=== PATIENT | female | born 1945 | race Caucasian/White ===

== ENCOUNTER 2018-03-03 14:21 | Inpatient (IN) ==
[2018-03-03 19:07] LABS: Hematocrit 46.3 % (35.0-46.0); Hemoglobin 15.6 gm/dL (11.6-15.3); Mean Corpuscular HGB Conc 33.8 % (32.0-36.0); Mean Corpuscular Hemoglobin 30.6 pg (27.0-34.0); Mean Corpuscular Volume 90.5 fL (80.0-100.0); Platelet Count 254 th/mm3 (150-450); Red Blood Count 5.12 mil/mm3 (4.00-5.30)
[2018-03-03] MEDS ORDERED: Morphine Inj 4 MG/ML Vial IV.PUSH ONE (19:09)
--- NOTE | 2018-03-03 19:09 | ED ---
HPI General Chief complaint: Abdominal Pain Stated complaint: c/o rt upper quad abd pain with nausea x1 wk Time Seen by Provider: 03/03/18 19:18 History of Present Illness HPI narrative: patient is a 72 year old female presents to the ER for evaluation of Epigastric pain radiating down her RLQ and to her Right flank for the past week. No alleviating or exacerbating factors identified. She has had some associated nausea without vomiting. No CP no SOB. Patient has not had any abdominal surgeries, no previous symptoms before this. Patient also appeared jaundiced but hasn't noticed. Family arrives and confirms she is yellow. Symptoms intermittent, moderate, location and radiation as above. Related Data Home Medications Medication Instructions Recorded Confirmed metoprolol tartrate 25 mg PO BID 03/03/18 03/03/18 omeprazole 40 mg PO DAILY 03/03/18 03/03/18 Previous Rx's Medication Instructions Recorded aspirin 81 mg PO DAILY tab 03/14/18 lisinopril 10 mg PO DAILY #30 tab 03/14/18 amlodipine [Norvasc] 10 mg PO DAILY #30 tab 03/15/18 Allergies Allergy/AdvReac Type Severity Reaction Status Date / Time naproxen Allergy Severe Swelling Verified 03/03/18 14:40 of Lip/Tongue/Throat acetaminophen [From Lortab] Allergy Intermediate Nausea/Vomi Verified 03/03/18 14:40 ting hydrocodone [From Lortab] Allergy Intermediate Nausea/Vomi Verified 03/03/18 14: 40 ting meperidine Allergy Intermediate Palpitation Verified 03/03/18 14:40 s promethazine Allergy Intermediate Palpitation Verified 03/03/18 14:40 s Review of Systems ROS: all other systems reviewed are negative [facility] Social History Social History Substance History: No History of Abuse Second Hand Smoke Exposure: No Smoking Status: Never smoker How Often Do You Have a Drink Containing Alcohol: Never Recent Travel in [place] within the Last 8 Weeks: No Recent Out of Country Travel within the Last 8 Weeks: No Immunization History Tetanus Immunization: >5 Years Hx Influenza Vaccine This Season: Yes Exam Narrative Exam Narrative: GENERAL: WD/WN overweight, jaundiced. SKIN: Focused skin assessment warm/dry. HEAD: Atraumatic. Normocephalic. EYES: Pupils equal and round. Positive mild scleral icterus. No injection or drainage. ENT: No nasal bleeding or discharge. Mucous membranes pink and moist. NECK: Trachea midline. No JVD. CARDIOVASCULAR: Regular rate and rhythm. No murmur appreciated. RESPIRATORY: No accessory muscle use. Clear to auscultation. Breath sounds equal bilaterally. GASTROINTESTINAL: Abdomen soft, Moderately tender in the RUQ. [place] sign is negative. moderately distended and tympanic percussion. No rebound, no percussive tenderness. Hepatic and splenic margins not palpable 2/2 distension. MUSCULOSKELETAL: No obvious deformities. No clubbing. No cyanosis. No edema. NEUROLOGICAL: Awake and alert. No obvious cranial nerve deficits. Motor grossly within normal limits. Normal speech. PSYCHIATRIC: Appropriate mood and affect; insight and judgment normal. Course Reevaluation(s) Reevaluation #1: Accepted in transfer of care from Dr. Summers Time: 19:19 Consultations Consultation #1: call placed to service agent and desktop analyst and music therapist public [employer] system discussed with Dr Orozco -- requests transfer to [facility] consent for ercp Time: 21:17 Consultation #2: discussed with GI, Dr Vo--transfer to [facility] for ercp after cardiac clearance; service agent, Dr Arenas--admit to [facility] IM; music therapist public [employer] system- discussed with music therapist public school system, Dr Deng -- no heparinization at this time, however if increasing troponin then start heparinization --does recommend ECHO Initial Documented Vital Signs Temperature 97.7 F 03/03/18 14:34 Pulse Rate 70 03/03/18 14:34 Respiratory Rate 16 03/03/18 14:34 Blood Pressure 118/69 03/03/18 14:34 Pulse Oximetry 93 L 03/03/18 14:34 Last Documented Vital Signs Temperature 98.7 F 03/15/18 11:00 Pulse Rate 65 03/15/18 12:00 Respiratory Rate 18 03/15/18 11:00 Blood Pressure 117/78 03/15/18 11:00 Pulse Oximetry 96 03/15/18 11:00 Critical Care Time Critical Care Time: Yes Total Critical Care Time: 30 Attestation: Aggregate critical care time was 30 minutes. Time to perform other separately billable procedures was not included in the critical care time. My time did not include minutes spent treating any other patients simultaneously or on activities that did not directly contribute to the patient's treatment. The services I provided to this patient were to treat and/or prevent clinically significant deterioration that could result in: septic shock, cardiac arrest, , I provided critical care services requiring my management, as noted below: Chart data review, documentation time, medication orders and management, vital sign assessments/reviewing monitor data, ordering and reviewing lab tests, ordering and interpreting/reviewing x-rays and diagnostic studies, care of the patient and discussion of the patient with the admitting physicians. Sign Out Sign Out Data: Patient Sign Out occurred on 03/03/18 at 19:18. Patient's care was discussed, and care was transferred from Caden Summers MD to Daksha Landrum MD. Sign Out Comment: D/W Dr. Landrum F/U labs and CT as discussed. Last updated by Caden Summers MD at 03/03/18 19:12 Medical Decision Making MDM Narrative Medical decision making narrative: patient roomed in the ER. Appears jaundiced , has some right upper quadrant tenderness. No true murphys. Basic labs ordered as well as CT and dose of morphine. Discussed with Dr. Landrum at 1900 shift change to follow up workup and disposition appropriately. Patient has received morphine sulfate and Zofran pain has patient does have reproducible tenderness to the right upper quadrant otherwise abdomen is nontender white count is elevated at 13,000 differential pending EKG is sinus rhythm no acute ST elevation or poor with progression anteroseptally possible age-indeterminate anterior infarct labs resulted and patient is identified to have leukocytosis 13,500 with abnormal chemistry and troponin I of 2.18. LFTs remarkable for total bili of 6.2 AST 313 ALT 442 lipase is 18,000 749 these values are concerning for gallstone pancreatitis. Troponin I concerning for injury EKG shows no acute ST elevation or acute injury pattern although does have poor R-wave progression anteroseptally possible anterior myocardial infarction age-indeterminate; patient does have history of hypertension and dyslipidemia is prescribed metoprolol. Patient denies any chest pain shortness of breath sweats referred neck jaw mid scapular back pain or upper extremity pain. Patient however had noted similar symptoms approximately a week ago and at that time thought she was having a "heart attack " severe epigastric pain pressure with diaphoresis --not having these symptoms now. Angioedema allergic reaction to NSAIDs will defer aspirin at this time and keep patient n.p.o. @ 8:25 PM pain 2-3/10 RUQ no chest or epigastric pain; no nausea,dyspnea, referred pain and no vomiting or diaphoresis; CT pending; automated differential left shift with 13% bands P.m. lactic acid is mildly elevated at 2.1 CT abdomen pelvis is resulted per reading radiologist no gallstones are identified however gallbladder is distended the common bile duct is dilated down to the ampulla prominence of the intra-hepatic biliary ducts and pancreatic duct concerning for possibility of obstruction at the level ampulla recommendation is for ERCP concerning for nonvisualized stone choledocholithiasis induced pancreatitis however patient also identified to have recent complaint of chest pain with diaphoresis and nausea EKG shows no acute ST elevation injury pattern but does show poor R-wave progression anteroseptally and troponin I is elevated at 2.18 with CK 135 however MB percent is elevated at 6.4% concerning for non-ST elevation MT/ACS discussed with GI, Dr Vo--transfer to [facility] for ercp after cardiac clearance; service agent, Dr Arenas--admit to [facility] IMC; music therapist public school system- discussed with music therapist public school system, Dr Deng -- no heparinization at this time, however if increasing troponin then start heparinization --does recommend ECHO. Dr Arenas informed of troponins, cardiology recommendations, and patient time of transfer from ED Medical Screen Exam Complete: Yes Emergency Medical Condition: Yes Differential Diagnosis Differential Diagnosis: Cholecystitis, Aorta pathology unlikely, gallstone ileus , pancreatitis. Medical Records Medical records reviewed: Yes I reviewed the patient's medical records. Lab Data Lab results reviewed: Yes I reviewed the patient's lab results. Result diagrams: 03/13/18 04:39 03/15/18 05:37 Lab Results 03/03/18 03/03/18 03/03/18 Range/Units 19:00 19:00 20:14 CBC w Diff Slide review pending WBC 13.0 H (4.0-11.0) th/mm3 RBC 5.12 (4.00-5.30) mil/mm3 Hgb 15.6 H (11.6-15.3) gm/dL Hct 46.3 H (35.0-46.0) % MCV 90.5 (80.0-100.0) fL MCH 30.6 (27.0-34.0) pg MCHC 33.8 (32.0-36.0) % RDW 14.0 (11.6-17.2) % Plt Count 254 (150-450) th/mm3 MPV 8.0 (7.0-11.0) fL Prelim Diff (Auto) Neut % (Auto) (16.0-70.0) % Lymph % (Auto) (9.0-44.0) % [place] % (Auto) (0.0-8.0) % Eos % (Auto) (0.0-4.0) % Baso % (Auto) (0.0-2.0) % Neut # (Auto) (1.8-7.7) th/mm3 Lymph # (Auto) (1.0-4.8) th/mm3 [place] # (Auto) (0.0-0.9) th/mm3 Eos # (Auto) (0.0-0.4) th/mm3 Baso # (Auto) (0.0-0.2) th/mm3 WBC Differential Manual diff final Seg Neuts % (Manual) 79 H (16-70) % Band Neuts % (Manual) 13 H (0-6) % Lymphocytes % (Manual) 6 L (9-44) % Monocytes % (Manual) 1 (0-8) % Eosinophils % (Manual) 1 (0-4) % Metamyelocytes % (Man) (0-1) % Abs Neuts (Manual) 12.0 H (1.8-7.7) th/mm3 Differential Comment . Platelet Estimate Normal (Normal) Platelet Morphology Normal (Normal) RBC Morphology Normal (Normal) Hematology Comments Sodium 134 L (136-145) meq/L Potassium 3.8 (3.5-5.1) meq/L Chloride 98 (98-107) meq/L Carbon Dioxide 23.9 (21.0-32.0) meq/L Anion Gap 12 (5-15) meq/L BUN 30 H (7-18) mg/dL Creatinine 0.93 (0.50-1.00) mg/dL Estimated GFR 59 L (>89) mL/min POC Glucose (68-110) mg/dl Random Glucose 162 H (74-106) mg/dL Lactic Acid 2.1 H (0.4-2.0) mmol/L Calcium 10.0 (8.5-10.1) mg/dL Phosphorus (2.5-4.9) mg/dL Magnesium (1.5-2.5) mg/dL Total Bilirubin 6.2 H (0.2-1.0) mg/dL Direct Bilirubin (0.0-0.2) mg/dL Indirect Bilirubin (0.0-0.8) mg/dL AST 315 H (15-37) U/L ALT 442 H (10-53) U/L Alkaline Phosphatase 288 H (45-117) U/L Lactate Dehydrogenase (84-246) U/L Total Creatine Kinase 135 (26-192) U/L CK-MB (CK-2) 8.7 H (0.5-3.6) ng/mL Troponin I 2.18 H* (0.02-0.05) ng/mL Total Protein 8.7 H (6.4-8.2) g/dL Albumin 3.3 L (3.4-5.0) g/dL Triglycerides (42-150) mg/dL Lipase 35935 H (73-393) U/L Urine Color (Yellw/Straw) Urine Clarity (Clear) Urine pH (5.0-8.5) Ur Specific Damar (1.002-1.035) Urine Protein (Neg-Trace) mg/dL Urine Glucose (UA) (Negative) mg/dL Urine Ketones (Negative) mg/dL Urine Occult Blood (Negative) Urine Nitrate (Negative) Urine Bilirubin (Negative) Urine Ictotest (Negative) Urine Urobilinogen (Less than 2) mg/dL Ur Leukocyte Esterase (Negative) Urine RBC (0-3) /hpf Urine WBC (0-5) /hpf Ur Squamous Epith Cells (0-5) /hpf Fine Granular Casts (None) /lpf Coarse Granular Casts (None) /lpf Micro UA Comment Urine Culture Comments Nasal Screen MRSA (PCR) (Negative) 03/03/18 03/03/18 03/04/18 Range/Units 21:40 22:25 03:24 CBC w Diff WBC (4.0-11.0) th/mm3 RBC (4.00-5.30) mil/mm3 Hgb (11.6-15.3) gm/dL Hct (35.0-46.0) % MCV (80.0-100.0) fL MCH (27.0-34.0) pg MCHC (32.0-36.0) % RDW (11.6-17.2) % Plt Count (150-450) th/mm3 MPV (7.0-11.0) fL Prelim Diff (Auto) Neut % (Auto) (16.0-70.0) % Lymph % (Auto) (9.0-44.0) % [place] % (Auto) (0.0-8.0) % Eos % (Auto) (0.0-4.0) % Baso % (Auto) (0.0-2.0) % Neut # (Auto) (1.8-7.7) th/mm3 Lymph # (Auto) (1.0-4.8) th/mm3 [place] # (Auto) (0.0-0.9) th/mm3 Eos # (Auto) (0.0-0.4) th/mm3 Baso # (Auto) (0.0-0.2) th/mm3 WBC Differential Seg Neuts % (Manual) (16-70) % Band Neuts % (Manual) (0-6) % Lymphocytes % (Manual) (9-44) % Monocytes % (Manual) (0-8) % Eosinophils % (Manual) (0-4) % Metamyelocytes % (Man) (0-1) % Abs Neuts (Manual) (1.8-7.7) th/mm3 Differential Comment Platelet Estimate (Normal) Platelet Morphology (Normal) RBC Morphology (Normal) Hematology Comments Sodium (136-145) meq/L Potassium (3.5-5.1) meq/L Chloride (98-107) meq/L Carbon Dioxide (21.0-32.0) meq/L Anion Gap (5-15) meq/L BUN (7-18) mg/dL Creatinine (0.50-1.00) mg/dL Estimated GFR (>89) mL/min POC Glucose (68-110) mg/dl Random Glucose (74-106) mg/dL Lactic Acid (0.4-2.0) mmol/L Calcium (8.5-10.1) mg/dL Phosphorus (2.5-4.9) mg/dL Magnesium (1.5-2.5) mg/dL Total Bilirubin (0.2-1.0) mg/dL Direct Bilirubin (0.0-0.2) mg/dL Indirect Bilirubin (0.0-0.8) mg/dL AST (15-37) U/L ALT (10-53) U/L Alkaline Phosphatase (45-117) U/L Lactate Dehydrogenase (84-246) U/L Total Creatine Kinase (26-192) U/L CK-MB (CK-2) (0.5-3.6) ng/mL Troponin I 2.26 H* (0.02-0.05) ng/mL Total Protein (6.4-8.2) g/dL Albumin (3.4-5.0) g/dL Triglycerides (42-150) mg/dL Lipase (73-393) U/L Urine Color Ally H (Yellw/Straw) Urine Clarity Clear (Clear) Urine pH 5.0 (5.0-8.5) Ur Specific Damar 1.020 (1.002-1.035) Urine Protein 100 H (Neg-Trace) mg/dL Urine Glucose (UA) Negative (Negative) mg/dL Urine Ketones 15 H (Negative) mg/dL Urine Occult Blood Trace (Negative) Urine Nitrate Negative (Negative) Urine Bilirubin Moderate H (Negative) Urine Ictotest Positive H (Negative) Urine Urobilinogen 0.2 (Less than 2) mg/dL Ur Leukocyte Esterase Negative (Negative) Urine RBC 0-3 (0-3) /hpf Urine WBC 6-8 H (0-5) /hpf Ur Squamous Epith Cells 6-10 H (0-5) /hpf Fine Granular Casts 1-3 H (None) /lpf Coarse Granular Casts 1-3 H (None) /lpf Micro UA Comment Culture not ind Urine Culture Comments Culture not ind Nasal Screen MRSA (PCR) Not detected (Negative) 03/04/18 03/04/18 03/04/18 Range/Units 05:26 11:12 13:04 CBC w Diff WBC 7.5 (4.0-11.0) th/mm3 RBC 4.52 (4.00-5.30) mil/mm3 Hgb 13.9 (11.6-15.3) gm/dL Hct 41.2 (35.0-46.0) % MCV 91.2 (80.0-100.0) fL MCH 30.8 (27.0-34.0) pg MCHC 33.8 (32.0-36.0) % RDW 14.7 (11.6-17.2) % Plt Count 194 (150-450) th/mm3 MPV 7.9 (7.0-11.0) fL Prelim Diff (Auto) Neut % (Auto) 78.6 H (16.0-70.0) % Lymph % (Auto) 11.7 (9.0-44.0) % [place] % (Auto) 8.9 H (0.0-8.0) % Eos % (Auto) 0.6 (0.0-4.0) % Baso % (Auto) 0.2 (0.0-2.0) % Neut # (Auto) 5.9 (1.8-7.7) th/mm3 Lymph # (Auto) 0.9 L (1.0-4.8) th/mm3 [place] # (Auto) 0.7 (0.0-0.9) th/mm3 Eos # (Auto) 0.0 (0.0-0.4) th/mm3 Baso # (Auto) 0.0 (0.0-0.2) th/mm3 WBC Differential . Seg Neuts % (Manual) (16-70) % Band Neuts % (Manual) (0-6) % Lymphocytes % (Manual) (9-44) % Monocytes % (Manual) (0-8) % Eosinophils % (Manual) (0-4) % Metamyelocytes % (Man) (0-1) % Abs Neuts (Manual) (1.8-7.7) th/mm3 Differential Comment Auto diff final Platelet Estimate (Normal) Platelet Morphology (Normal) RBC Morphology (Normal) Hematology Comments Sodium 133 L (136-145) meq/L Potassium 4.2 (3.5-5.1) meq/L Chloride 103 (98-107) meq/L Carbon Dioxide 22.3 (21.0-32.0) meq/L Anion Gap 8 (5-15) meq/L BUN 25 H (7-18) mg/dL Creatinine 0.77 (0.50-1.00) mg/dL Estimated GFR 73 L (>89) mL/min POC Glucose (68-110) mg/dl Random Glucose 128 H (74-106) mg/dL Lactic Acid 0.4 (0.4-2.0) mmol/L Calcium 9.1 D (8.5-10.1) mg/dL Phosphorus (2.5-4.9) mg/dL Magnesium 2.4 (1.5-2.5) mg/dL Total Bilirubin 5.9 H (0.2-1.0) mg/dL Direct Bilirubin (0.0-0.2) mg/dL Indirect Bilirubin (0.0-0.8) mg/dL AST 277 H (15-37) U/L ALT 373 H (10-53) U/L Alkaline Phosphatase 263 H (45-117) U/L Lactate Dehydrogenase 295 H (84-246) U/L Total Creatine Kinase (26-192) U/L CK-MB (CK-2) (0.5-3.6) ng/mL Troponin I 1.43 H* D (0.02-0.05) ng/mL Total Protein 7.3 D (6.4-8.2) g/dL Albumin 2.6 L D (3.4-5.0) g/dL Triglycerides (42-150) mg/dL Lipase 9046 H (73-393) U/L Urine Color (Yellw/Straw) Urine Clarity (Clear) Urine pH (5.0-8.5) Ur Specific [place] (1.002-1.035) Urine Protein (Neg-Trace) mg/dL Urine Glucose (UA) (Negative) mg/dL Urine Ketones (Negative) mg/dL Urine Occult Blood (Negative) Urine Nitrate (Negative) Urine Bilirubin (Negative) Urine Ictotest (Negative) Urine Urobilinogen (Less than 2) mg/dL Ur Leukocyte Esterase (Negative) Urine RBC (0-3) /hpf Urine WBC (0-5) /hpf Ur Squamous Epith Cells (0-5) /hpf Fine Granular Casts (None) /lpf Coarse Granular Casts (None) /lpf Micro UA Comment Urine Culture Comments Nasal Screen MRSA (PCR) (Negative) 03/04/18 03/05/18 03/05/18 Range/Units 22:32 05:20 05:30 CBC w Diff WBC 7.5 (4.0-11.0) th/mm3 RBC 4.23 (4.00-5.30) mil/mm3 Hgb 12.9 (11.6-15.3) gm/dL Hct 38.4 (35.0-46.0) % MCV 90.7 (80.0-100.0) fL MCH 30.5 (27.0-34.0) pg MCHC 33.6 (32.0-36.0) % RDW 14.4 (11.6-17.2) % Plt Count 180 (150-450) th/mm3 MPV 8.1 (7.0-11.0) fL Prelim Diff (Auto) Neut % (Auto) 77.0 H (16.0-70.0) % Lymph % (Auto) 13.0 (9.0-44.0) % [place] % (Auto) 8.0 (0.0-8.0) % Eos % (Auto) 1.5 (0.0-4.0) % Baso % (Auto) 0.5 (0.0-2.0) % Neut # (Auto) 5.8 (1.8-7.7) th/mm3 Lymph # (Auto) 1.0 (1.0-4.8) th/mm3 [place] # (Auto) 0.6 (0.0-0.9) th/mm3 Eos # (Auto) 0.1 (0.0-0.4) th/mm3 Baso # (Auto) 0.0 (0.0-0.2) th/mm3 WBC Differential . Seg Neuts % (Manual) (16-70) % Band Neuts % (Manual) (0-6) % Lymphocytes % (Manual) (9-44) % Monocytes % (Manual) (0-8) % Eosinophils % (Manual) (0-4) % Metamyelocytes % (Man) (0-1) % Abs Neuts (Manual) (1.8-7.7) th/mm3 Differential Comment Auto diff final Platelet Estimate (Normal) Platelet Morphology (Normal) RBC Morphology (Normal) Hematology Comments Sodium 139 (136-145) meq/L Potassium 3.6 (3.5-5.1) meq/L Chloride 105 (98-107) meq/L Carbon Dioxide 23.8 (21.0-32.0) meq/L Anion Gap 10 (5-15) meq/L BUN 17 (7-18) mg/dL Creatinine 0.64 (0.50-1.00) mg/dL Estimated GFR (>89) mL/min POC Glucose (68-110) mg/dl Random Glucose 145 H (74-106) mg/dL Lactic Acid (0.4-2.0) mmol/L Calcium 8.5 (8.5-10.1) mg/dL Phosphorus 2.5 2.4 L (2.5-4.9) mg/dL Magnesium 2.2 (1.5-2.5) mg/dL Total Bilirubin 6.4 H (0.2-1.0) mg/dL Direct Bilirubin (0.0-0.2) mg/dL Indirect Bilirubin (0.0-0.8) mg/dL AST 234 H (15-37) U/L ALT 313 H (10-53) U/L Alkaline Phosphatase 283 H (45-117) U/L Lactate Dehydrogenase (84-246) U/L Total Creatine Kinase (26-192) U/L CK-MB (CK-2) (0.5-3.6) ng/mL Troponin I (0.02-0.05) ng/mL Total Protein 7.0 (6.4-8.2) g/dL Albumin 2.4 L (3.4-5.0) g/dL Triglycerides 153 H (42-150) mg/dL Lipase 5071 H (73-393) U/L Urine Color (Yellw/Straw) Urine Clarity (Clear) Urine pH (5.0-8.5) Ur Specific Damar (1.002-1.035) Urine Protein (Neg-Trace) mg/dL Urine Glucose (UA) (Negative) mg/dL Urine Ketones (Negative) mg/dL Urine Occult Blood (Negative) Urine Nitrate (Negative) Urine Bilirubin (Negative) Urine Ictotest (Negative) Urine Urobilinogen (Less than 2) mg/dL Ur Leukocyte Esterase (Negative) Urine RBC (0-3) /hpf Urine WBC (0-5) /hpf Ur Squamous Epith Cells (0-5) /hpf Fine Granular Casts (None) /lpf Coarse Granular Casts (None) /lpf Micro UA Comment Urine Culture Comments Nasal Screen MRSA (PCR) (Negative) 03/05/18 03/05/18 03/06/18 Range/Units 12:58 20:33 04:04 CBC w Diff WBC 9.6 (4.0-11.0) th/mm3 RBC 3.77 L (4.00-5.30) mil/mm3 Hgb 11.6 (11.6-15.3) gm/dL Hct 34.3 L (35.0-46.0) % MCV 90.8 (80.0-100.0) fL MCH 30.7 (27.0-34.0) pg MCHC 33.8 (32.0-36.0) % RDW 14.8 (11.6-17.2) % Plt Count 192 (150-450) th/mm3 MPV 8.1 (7.0-11.0) fL Prelim Diff (Auto) Neut % (Auto) 89.5 H (16.0-70.0) % Lymph % (Auto) 6.4 L (9.0-44.0) % [place] % (Auto) 3.9 (0.0-8.0) % Eos % (Auto) 0.0 (0.0-4.0) % Baso % (Auto) 0.2 (0.0-2.0) % Neut # (Auto) 8.6 H (1.8-7.7) th/mm3 Lymph # (Auto) 0.6 L (1.0-4.8) th/mm3 [place] # (Auto) 0.4 (0.0-0.9) th/mm3 Eos # (Auto) 0.0 (0.0-0.4) th/mm3 Baso # (Auto) 0.0 (0.0-0.2) th/mm3 WBC Differential . Seg Neuts % (Manual) (16-70) % Band Neuts % (Manual) (0-6) % Lymphocytes % (Manual) (9-44) % Monocytes % (Manual) (0-8) % Eosinophils % (Manual) (0-4) % Metamyelocytes % (Man) (0-1) % Abs Neuts (Manual) (1.8-7.7) th/mm3 Differential Comment Auto diff final Platelet Estimate (Normal) Platelet Morphology (Normal) RBC Morphology (Normal) Hematology Comments Sodium (136-145) meq/L Potassium (3.5-5.1) meq/L Chloride (98-107) meq/L Carbon Dioxide (21.0-32.0) meq/L Anion Gap (5-15) meq/L BUN (7-18) mg/dL Creatinine (0.50-1.00) mg/dL Estimated GFR (>89) mL/min POC Glucose 104 123 H (68-110) mg/dl Random Glucose (74-106) mg/dL Lactic Acid (0.4-2.0) mmol/L Calcium (8.5-10.1) mg/dL Phosphorus (2.5-4.9) mg/dL Magnesium (1.5-2.5) mg/dL Total Bilirubin (0.2-1.0) mg/dL Direct Bilirubin (0.0-0.2) mg/dL Indirect Bilirubin (0.0-0.8) mg/dL AST (15-37) U/L ALT (10-53) U/L Alkaline Phosphatase (45-117) U/L Lactate Dehydrogenase (84-246) U/L Total Creatine Kinase (26-192) U/L CK-MB (CK-2) (0.5-3.6) ng/mL Troponin I (0.02-0.05) ng/mL Total Protein (6.4-8.2) g/dL Albumin (3.4-5.0) g/dL Triglycerides (42-150) mg/dL Lipase (73-393) U/L Urine Color (Yellw/Straw) Urine Clarity (Clear) Urine pH (5.0-8.5) Ur Specific Damar (1.002-1.035) Urine Protein (Neg-Trace) mg/dL Urine Glucose (UA) (Negative) mg/dL Urine Ketones (Negative) mg/dL Urine Occult Blood (Negative) Urine Nitrate (Negative) Urine Bilirubin (Negative) Urine Ictotest (Negative) Urine Urobilinogen (Less than 2) mg/dL Ur Leukocyte Esterase (Negative) Urine RBC (0-3) /hpf Urine WBC (0-5) /hpf Ur Squamous Epith Cells (0-5) /hpf Fine Granular Casts (None) /lpf Coarse Granular Casts (None) /lpf Micro UA Comment Urine Culture Comments Nasal Screen MRSA (PCR) (Negative) 03/06/18 03/07/18 03/07/18 Range/Units 04:04 03:49 03:49 CBC w Diff WBC 9.9 (4.0-11.0) th/mm3 RBC 3.69 L (4.00-5.30) mil/mm3 Hgb 11.5 L (11.6-15.3) gm/dL Hct 33.5 L (35.0-46.0) % MCV 90.8 (80.0-100.0) fL MCH 31.2 (27.0-34.0) pg MCHC 34.3 (32.0-36.0) % RDW 14.5 (11.6-17.2) % Plt Count 226 (150-450) th/mm3 MPV 8.2 (7.0-11.0) fL Prelim Diff (Auto) Slide review pending Neut % (Auto) 70.9 H (16.0-70.0) % Lymph % (Auto) 17.4 (9.0-44.0) % [place] % (Auto) 9.2 H (0.0-8.0) % Eos % (Auto) 2.2 (0.0-4.0) % Baso % (Auto) 0.3 (0.0-2.0) % Neut # (Auto) 7.0 (1.8-7.7) th/mm3 Lymph # (Auto) 1.7 (1.0-4.8) th/mm3 [place] # (Auto) 0.9 (0.0-0.9) th/mm3 Eos # (Auto) 0.2 (0.0-0.4) th/mm3 Baso # (Auto) 0.0 (0.0-0.2) th/mm3 WBC Differential Manual diff final Seg Neuts % (Manual) 68 (16-70) % Band Neuts % (Manual) (0-6) % Lymphocytes % (Manual) 18 (9-44) % Monocytes % (Manual) 12 H (0-8) % Eosinophils % (Manual) 1 (0-4) % Metamyelocytes % (Man) 1 (0-1) % Abs Neuts (Manual) 6.8 (1.8-7.7) th/mm3 Differential Comment . Platelet Estimate Normal (Normal) Platelet Morphology Normal (Normal) RBC Morphology Normal (Normal) Hematology Comments Sodium 140 141 (136-145) meq/L Potassium 3.5 2.8 L* (3.5-5.1) meq/L Chloride 105 103 (98-107) meq/L Carbon Dioxide 26.0 28.0 (21.0-32.0) meq/L Anion Gap 9 10 (5-15) meq/L BUN 12 9 (7-18) mg/dL Creatinine 0.55 0.56 (0.50-1.00) mg/dL Estimated GFR Greater than 89 Greater than 89 (>89) mL/min POC Glucose (68-110) mg/dl Random Glucose 147 H 113 H (74-106) mg/dL Lactic Acid (0.4-2.0) mmol/L Calcium 8.1 L 8.0 L (8.5-10.1) mg/dL Phosphorus 2.1 L 2.0 L (2.5-4.9) mg/dL Magnesium 2.1 2.1 (1.5-2.5) mg/dL Total Bilirubin 1.8 H 1.1 H (0.2-1.0) mg/dL Direct Bilirubin (0.0-0.2) mg/dL Indirect Bilirubin (0.0-0.8) mg/dL AST 113 H 94 H (15-37) U/L ALT 224 H 194 H (10-53) U/L Alkaline Phosphatase 250 H 211 H (45-117) U/L Lactate Dehydrogenase (84-246) U/L Total Creatine Kinase (26-192) U/L CK-MB (CK-2) (0.5-3.6) ng/mL Troponin I (0.02-0.05) ng/mL Total Protein 6.9 6.7 (6.4-8.2) g/dL Albumin 2.3 L 2.3 L (3.4-5.0) g/dL Triglycerides (42-150) mg/dL Lipase 466 H 719 H (73-393) U/L Urine Color (Yellw/Straw) Urine Clarity (Clear) Urine pH (5.0-8.5) Ur Specific Damar (1.002-1.035) Urine Protein (Neg-Trace) mg/dL Urine Glucose (UA) (Negative) mg/dL Urine Ketones (Negative) mg/dL Urine Occult Blood (Negative) Urine Nitrate (Negative) Urine Bilirubin (Negative) Urine Ictotest (Negative) Urine Urobilinogen (Less than 2) mg/dL Ur Leukocyte Esterase (Negative) Urine RBC (0-3) /hpf Urine WBC (0-5) /hpf Ur Squamous Epith Cells (0-5) /hpf Fine Granular Casts (None) /lpf Coarse Granular Casts (None) /lpf Micro UA Comment Urine Culture Comments Nasal Screen MRSA (PCR) (Negative) 03/08/18 03/08/18 03/09/18 Range/Units 03:34 03:34 03:58 CBC w Diff WBC 10.6 11.3 H (4.0-11.0) th/mm3 RBC 3.69 L 3.72 L (4.00-5.30) mil/mm3 Hgb 11.3 L 11.2 L (11.6-15.3) gm/dL Hct 32.8 L 33.9 L (35.0-46.0) % MCV 89.0 91.1 (80.0-100.0) fL MCH 30.6 30.1 (27.0-34.0) pg MCHC 34.4 33.0 (32.0-36.0) % RDW 14.6 14.8 (11.6-17.2) % Plt Count 232 271 (150-450) th/mm3 MPV 7.5 7.9 (7.0-11.0) fL Prelim Diff (Auto) Neut % (Auto) 70.5 H 73.6 H (16.0-70.0) % Lymph % (Auto) 15.9 15.5 (9.0-44.0) % [place] % (Auto) 10.6 H 7.6 (0.0-8.0) % Eos % (Auto) 2.7 3.0 (0.0-4.0) % Baso % (Auto) 0.3 0.3 (0.0-2.0) % Neut # (Auto) 7.5 8.3 H (1.8-7.7) th/mm3 Lymph # (Auto) 1.7 1.7 (1.0-4.8) th/mm3 [place] # (Auto) 1.1 H 0.9 (0.0-0.9) th/mm3 Eos # (Auto) 0.3 0.3 (0.0-0.4) th/mm3 Baso # (Auto) 0.0 0.0 (0.0-0.2) th/mm3 WBC Differential . . Seg Neuts % (Manual) (16-70) % Band Neuts % (Manual) (0-6) % Lymphocytes % (Manual) (9-44) % Monocytes % (Manual) (0-8) % Eosinophils % (Manual) (0-4) % Metamyelocytes % (Man) (0-1) % Abs Neuts (Manual) (1.8-7.7) th/mm3 Differential Comment Auto diff final Auto diff final Platelet Estimate (Normal) Platelet Morphology (Normal) RBC Morphology (Normal) Hematology Comments Sodium 139 (136-145) meq/L Potassium 3.0 L (3.5-5.1) meq/L Chloride 101 (98-107) meq/L Carbon Dioxide 28.9 (21.0-32.0) meq/L Anion Gap 9 (5-15) meq/L BUN 6 L (7-18) mg/dL Creatinine 0.47 L (0.50-1.00) mg/dL Estimated GFR Greater than 89 (>89) mL/min POC Glucose (68-110) mg/dl Random Glucose 109 H (74-106) mg/dL Lactic Acid (0.4-2.0) mmol/L Calcium 8.0 L (8.5-10.1) mg/dL Phosphorus 3.1 D (2.5-4.9) mg/dL Magnesium 1.9 (1.5-2.5) mg/dL Total Bilirubin 1.2 H (0.2-1.0) mg/dL Direct Bilirubin 0.6 H (0.0-0.2) mg/dL Indirect Bilirubin 0.6 (0.0-0.8) mg/dL AST 89 H (15-37) U/L ALT 182 H (10-53) U/L Alkaline Phosphatase 187 H (45-117) U/L Lactate Dehydrogenase (84-246) U/L Total Creatine Kinase (26-192) U/L CK-MB (CK-2) (0.5-3.6) ng/mL Troponin I (0.02-0.05) ng/mL Total Protein 6.5 (6.4-8.2) g/dL Albumin 2.2 L (3.4-5.0) g/dL Triglycerides (42-150) mg/dL Lipase 443 H (73-393) U/L Urine Color (Yellw/Straw) Urine Clarity (Clear) Urine pH (5.0-8.5) Ur Specific Damar (1.002-1.035) Urine Protein (Neg-Trace) mg/dL Urine Glucose (UA) (Negative) mg/dL Urine Ketones (Negative) mg/dL Urine Occult Blood (Negative) Urine Nitrate (Negative) Urine Bilirubin (Negative) Urine Ictotest (Negative) Urine Urobilinogen (Less than 2) mg/dL Ur Leukocyte Esterase (Negative) Urine RBC (0-3) /hpf Urine WBC (0-5) /hpf Ur Squamous Epith Cells (0-5) /hpf Fine Granular Casts (None) /lpf Coarse Granular Casts (None) /lpf Micro UA Comment Urine Culture Comments Nasal Screen MRSA (PCR) (Negative) 03/09/18 03/10/18 03/11/18 Range/Units 03:58 05:00 05:53 CBC w Diff WBC 9.7 (4.0-11.0) th/mm3 RBC 4.06 (4.00-5.30) mil/mm3 Hgb 12.4 (11.6-15.3) gm/dL Hct 36.6 (35.0-46.0) % MCV 90.2 (80.0-100.0) fL MCH 30.6 (27.0-34.0) pg MCHC 33.9 (32.0-36.0) % RDW 14.7 (11.6-17.2) % Plt Count 438 D (150-450) th/mm3 MPV 7.4 (7.0-11.0) fL Prelim Diff (Auto) Neut % (Auto) 76.2 H (16.0-70.0) % Lymph % (Auto) 13.7 (9.0-44.0) % [place] % (Auto) 6.5 (0.0-8.0) % Eos % (Auto) 3.2 (0.0-4.0) % Baso % (Auto) 0.4 (0.0-2.0) % Neut # (Auto) 7.4 (1.8-7.7) th/mm3 Lymph # (Auto) 1.3 (1.0-4.8) th/mm3 [place] # (Auto) 0.6 (0.0-0.9) th/mm3 Eos # (Auto) 0.3 (0.0-0.4) th/mm3 Baso # (Auto) 0.0 (0.0-0.2) th/mm3 WBC Differential . Seg Neuts % (Manual) (16-70) % Band Neuts % (Manual) (0-6) % Lymphocytes % (Manual) (9-44) % Monocytes % (Manual) (0-8) % Eosinophils % (Manual) (0-4) % Metamyelocytes % (Man) (0-1) % Abs Neuts (Manual) (1.8-7.7) th/mm3 Differential Comment Auto diff final Platelet Estimate (Normal) Platelet Morphology (Normal) RBC Morphology (Normal) Hematology Comments Sodium 141 142 (136-145) meq/L Potassium 3.3 L 3.4 L (3.5-5.1) meq/L Chloride 103 104 (98-107) meq/L Carbon Dioxide 27.2 28.1 (21.0-32.0) meq/L Anion Gap 11 10 (5-15) meq/L BUN 8 7 (7-18) mg/dL Creatinine 0.62 0.56 (0.50-1.00) mg/dL Estimated GFR Greater than 89 Greater than 89 (>89) mL/min POC Glucose (68-110) mg/dl Random Glucose 116 H 115 H (74-106) mg/dL Lactic Acid (0.4-2.0) mmol/L Calcium 8.4 L 8.7 (8.5-10.1) mg/dL Phosphorus 4.0 (2.5-4.9) mg/dL Magnesium 2.1 (1.5-2.5) mg/dL Total Bilirubin 1.0 0.8 (0.2-1.0) mg/dL Direct Bilirubin (0.0-0.2) mg/dL Indirect Bilirubin (0.0-0.8) mg/dL AST 47 H 34 (15-37) U/L ALT 140 H 106 H (10-53) U/L Alkaline Phosphatase 180 H 185 H (45-117) U/L Lactate Dehydrogenase (84-246) U/L Total Creatine Kinase (26-192) U/L CK-MB (CK-2) (0.5-3.6) ng/mL Troponin I (0.02-0.05) ng/mL Total Protein 6.7 6.9 (6.4-8.2) g/dL Albumin 2.1 L 2.2 L (3.4-5.0) g/dL Triglycerides (42-150) mg/dL Lipase 688 H 979 H (73-393) U/L Urine Color (Yellw/Straw) Urine Clarity (Clear) Urine pH (5.0-8.5) Ur Specific Damar (1.002-1.035) Urine Protein (Neg-Trace) mg/dL Urine Glucose (UA) (Negative) mg/dL Urine Ketones (Negative) mg/dL Urine Occult Blood (Negative) Urine Nitrate (Negative) Urine Bilirubin (Negative) Urine Ictotest (Negative) Urine Urobilinogen (Less than 2) mg/dL Ur Leukocyte Esterase (Negative) Urine RBC (0-3) /hpf Urine WBC (0-5) /hpf Ur Squamous Epith Cells (0-5) /hpf Fine Granular Casts (None) /lpf Coarse Granular Casts (None) /lpf Micro UA Comment Urine Culture Comments Nasal Screen MRSA (PCR) (Negative) 03/11/18 03/12/18 03/12/18 Range/Units 05:53 04:20 04:20 CBC w Diff WBC 7.3 (4.0-11.0) th/mm3 RBC 4.09 (4.00-5.30) mil/mm3 Hgb 12.8 (11.6-15.3) gm/dL Hct 37.2 (35.0-46.0) % MCV 90.9 (80.0-100.0) fL MCH 31.3 (27.0-34.0) pg MCHC 34.4 (32.0-36.0) % RDW 14.3 (11.6-17.2) % Plt Count 433 (150-450) th/mm3 MPV 7.6 (7.0-11.0) fL Prelim Diff (Auto) Neut % (Auto) 64.3 (16.0-70.0) % Lymph % (Auto) 21.6 (9.0-44.0) % [place] % (Auto) 9.1 H (0.0-8.0) % Eos % (Auto) 4.3 H (0.0-4.0) % Baso % (Auto) 0.7 (0.0-2.0) % Neut # (Auto) 4.7 (1.8-7.7) th/mm3 Lymph # (Auto) 1.6 (1.0-4.8) th/mm3 [place] # (Auto) 0.7 (0.0-0.9) th/mm3 Eos # (Auto) 0.3 (0.0-0.4) th/mm3 Baso # (Auto) 0.1 (0.0-0.2) th/mm3 WBC Differential . Seg Neuts % (Manual) (16-70) % Band Neuts % (Manual) (0-6) % Lymphocytes % (Manual) (9-44) % Monocytes % (Manual) (0-8) % Eosinophils % (Manual) (0-4) % Metamyelocytes % (Man) (0-1) % Abs Neuts (Manual) (1.8-7.7) th/mm3 Differential Comment Auto diff final Platelet Estimate (Normal) Platelet Morphology (Normal) RBC Morphology (Normal) Hematology Comments Sodium 142 141 (136-145) meq/L Potassium 3.5 3.3 L (3.5-5.1) meq/L Chloride 103 104 (98-107) meq/L Carbon Dioxide 28.4 25.5 (21.0-32.0) meq/L Anion Gap 11 12 (5-15) meq/L BUN 7 7 (7-18) mg/dL Creatinine 0.60 0.59 (0.50-1.00) mg/dL Estimated GFR Greater than 89 Greater than 89 (>89) mL/min POC Glucose (68-110) mg/dl Random Glucose 110 H 121 H (74-106) mg/dL Lactic Acid (0.4-2.0) mmol/L Calcium 8.9 9.0 (8.5-10.1) mg/dL Phosphorus (2.5-4.9) mg/dL Magnesium 2.3 (1.5-2.5) mg/dL Total Bilirubin 0.9 1.0 (0.2-1.0) mg/dL Direct Bilirubin 0.3 H (0.0-0.2) mg/dL Indirect Bilirubin 0.7 (0.0-0.8) mg/dL AST 32 28 (15-37) U/L ALT 92 H 74 H (10-53) U/L Alkaline Phosphatase 196 H 184 H (45-117) U/L Lactate Dehydrogenase (84-246) U/L Total Creatine Kinase (26-192) U/L CK-MB (CK-2) (0.5-3.6) ng/mL Troponin I (0.02-0.05) ng/mL Total Protein 7.6 D 7.6 (6.4-8.2) g/dL Albumin 2.5 L 2.3 L (3.4-5.0) g/dL Triglycerides (42-150) mg/dL Lipase 948 H 1014 H (73-393) U/L Urine Color (Yellw/Straw) Urine Clarity (Clear) Urine pH (5.0-8.5) Ur Specific Damar (1.002-1.035) Urine Protein (Neg-Trace) mg/dL Urine Glucose (UA) (Negative) mg/dL Urine Ketones (Negative) mg/dL Urine Occult Blood (Negative) Urine Nitrate (Negative) Urine Bilirubin (Negative) Urine Ictotest (Negative) Urine Urobilinogen (Less than 2) mg/dL Ur Leukocyte Esterase (Negative) Urine RBC (0-3) /hpf Urine WBC (0-5) /hpf Ur Squamous Epith Cells (0-5) /hpf Fine Granular Casts (None) /lpf Coarse Granular Casts (None) /lpf Micro UA Comment Urine Culture Comments Nasal Screen MRSA (PCR) (Negative) 03/13/18 03/13/18 03/14/18 Range/Units 04:39 04:39 09:48 CBC w Diff WBC 5.8 (4.0-11.0) th/mm3 RBC 4.18 (4.00-5.30) mil/mm3 Hgb 12.6 (11.6-15.3) gm/dL Hct 37.2 (35.0-46.0) % MCV 89.0 (80.0-100.0) fL MCH 30.1 (27.0-34.0) pg MCHC 33.8 (32.0-36.0) % RDW 14.3 (11.6-17.2) % Plt Count 442 (150-450) th/mm3 MPV 7.6 (7.0-11.0) fL Prelim Diff (Auto) Neut % (Auto) 61.7 (16.0-70.0) % Lymph % (Auto) 20.8 (9.0-44.0) % [place] % (Auto) 12.0 H (0.0-8.0) % Eos % (Auto) 4.6 H (0.0-4.0) % Baso % (Auto) 0.9 (0.0-2.0) % Neut # (Auto) 3.6 (1.8-7.7) th/mm3 Lymph # (Auto) 1.2 (1.0-4.8) th/mm3 [place] # (Auto) 0.7 (0.0-0.9) th/mm3 Eos # (Auto) 0.3 (0.0-0.4) th/mm3 Baso # (Auto) 0.1 (0.0-0.2) th/mm3 WBC Differential . Seg Neuts % (Manual) (16-70) % Band Neuts % (Manual) (0-6) % Lymphocytes % (Manual) (9-44) % Monocytes % (Manual) (0-8) % Eosinophils % (Manual) (0-4) % Metamyelocytes % (Man) (0-1) % Abs Neuts (Manual) (1.8-7.7) th/mm3 Differential Comment Auto diff final Platelet Estimate (Normal) Platelet Morphology (Normal) RBC Morphology (Normal) Hematology Comments Sodium 142 (136-145) meq/L Potassium 4.1 D (3.5-5.1) meq/L Chloride 107 (98-107) meq/L Carbon Dioxide 25.4 (21.0-32.0) meq/L Anion Gap 10 (5-15) meq/L BUN 10 (7-18) mg/dL Creatinine 0.63 (0.50-1.00) mg/dL Estimated GFR Greater than 89 (>89) mL/min POC Glucose (68-110) mg/dl Random Glucose 126 H (74-106) mg/dL Lactic Acid (0.4-2.0) mmol/L Calcium 8.5 (8.5-10.1) mg/dL Phosphorus (2.5-4.9) mg/dL Magnesium (1.5-2.5) mg/dL Total Bilirubin 0.7 (0.2-1.0) mg/dL Direct Bilirubin 0.3 H (0.0-0.2) mg/dL Indirect Bilirubin 0.4 (0.0-0.8) mg/dL AST 25 (15-37) U/L ALT 55 H (10-53) U/L Alkaline Phosphatase 154 H (45-117) U/L Lactate Dehydrogenase (84-246) U/L Total Creatine Kinase (26-192) U/L CK-MB (CK-2) (0.5-3.6) ng/mL Troponin I (0.02-0.05) ng/mL Total Protein 6.9 D (6.4-8.2) g/dL Albumin 2.3 L (3.4-5.0) g/dL Triglycerides (42-150) mg/dL Lipase 993 H 1066 H (73-393) U/L Urine Color (Yellw/Straw) Urine Clarity (Clear) Urine pH (5.0-8.5) Ur Specific Damar (1.002-1.035) Urine Protein (Neg-Trace) mg/dL Urine Glucose (UA) (Negative) mg/dL Urine Ketones (Negative) mg/dL Urine Occult Blood (Negative) Urine Nitrate (Negative) Urine Bilirubin (Negative) Urine Ictotest (Negative) Urine Urobilinogen (Less than 2) mg/dL Ur Leukocyte Esterase (Negative) Urine RBC (0-3) /hpf Urine WBC (0-5) /hpf Ur Squamous Epith Cells (0-5) /hpf Fine Granular Casts (None) /lpf Coarse Granular Casts (None) /lpf Micro UA Comment Urine Culture Comments Nasal Screen MRSA (PCR) (Negative) 03/15/18 Range/Units 05:37 CBC w Diff WBC (4.0-11.0) th/mm3 RBC (4.00-5.30) mil/mm3 Hgb (11.6-15.3) gm/dL Hct (35.0-46.0) % MCV (80.0-100.0) fL MCH (27.0-34.0) pg MCHC (32.0-36.0) % RDW (11.6-17.2) % Plt Count (150-450) th/mm3 MPV (7.0-11.0) fL Prelim Diff (Auto) Neut % (Auto) (16.0-70.0) % Lymph % (Auto) (9.0-44.0) % [place] % (Auto) (0.0-8.0) % Eos % (Auto) (0.0-4.0) % Baso % (Auto) (0.0-2.0) % Neut # (Auto) (1.8-7.7) th/mm3 Lymph # (Auto) (1.0-4.8) th/mm3 [place] # (Auto) (0.0-0.9) th/mm3 Eos # (Auto) (0.0-0.4) th/mm3 Baso # (Auto) (0.0-0.2) th/mm3 WBC Differential Seg Neuts % (Manual) (16-70) % Band Neuts % (Manual) (0-6) % Lymphocytes % (Manual) (9-44) % Monocytes % (Manual) (0-8) % Eosinophils % (Manual) (0-4) % Metamyelocytes % (Man) (0-1) % Abs Neuts (Manual) (1.8-7.7) th/mm3 Differential Comment Platelet Estimate (Normal) Platelet Morphology (Normal) RBC Morphology (Normal) Hematology Comments Sodium 140 (136-145) meq/L Potassium 4.2 (3.5-5.1) meq/L Chloride 102 (98-107) meq/L Carbon Dioxide 26.9 (21.0-32.0) meq/L Anion Gap 11 (5-15) meq/L BUN 10 (7-18) mg/dL Creatinine 0.61 (0.50-1.00) mg/dL Estimated GFR Greater than 89 (>89) mL/min POC Glucose (68-110) mg/dl Random Glucose 131 H (74-106) mg/dL Lactic Acid (0.4-2.0) mmol/L Calcium 9.0 (8.5-10.1) mg/dL Phosphorus (2.5-4.9) mg/dL Magnesium (1.5-2.5) mg/dL Total Bilirubin 0.8 (0.2-1.0) mg/dL Direct Bilirubin (0.0-0.2) mg/dL Indirect Bilirubin (0.0-0.8) mg/dL AST 18 (15-37) U/L ALT 40 (10-53) U/L Alkaline Phosphatase 142 H (45-117) U/L Lactate Dehydrogenase (84-246) U/L Total Creatine Kinase (26-192) U/L CK-MB (CK-2) (0.5-3.6) ng/mL Troponin I (0.02-0.05) ng/mL Total Protein 7.4 (6.4-8.2) g/dL Albumin 2.7 L (3.4-5.0) g/dL Triglycerides (42-150) mg/dL Lipase (73-393) U/L Urine Color (Yellw/Straw) Urine Clarity (Clear) Urine pH (5.0-8.5) Ur Specific Damar (1.002-1.035) Urine Protein (Neg-Trace) mg/dL Urine Glucose (UA) (Negative) mg/dL Urine Ketones (Negative) mg/dL Urine Occult Blood (Negative) Urine Nitrate (Negative) Urine Bilirubin (Negative) Urine Ictotest (Negative) Urine Urobilinogen (Less than 2) mg/dL Ur Leukocyte Esterase (Negative) Urine RBC (0-3) /hpf Urine WBC (0-5) /hpf Ur Squamous Epith Cells (0-5) /hpf Fine Granular Casts (None) /lpf Coarse Granular Casts (None) /lpf Micro UA Comment Urine Culture Comments Nasal Screen MRSA (PCR) (Negative) Imaging Data Radiologist's impression: Abdomen/Pelvis CT 03/03/18 18:42 CONCLUSION: 1. No gallstones seen. The gallbladder is distended and the common bile duct is dilated down to the ampulla. There is also minimal prominence of the intrahepatic biliary ducts and the pancreatic duct. The findings suggest the possibility of obstruction at the level of the ampulla. Recommend direct visualization and possible biopsy with ERCP. 2. A few scattered sigmoid diverticula. 3. Small fat-containing left inguinal hernia. Cholangiopancreatography MRI 03/04/18 00:00 CONCLUSION: 1. Abnormal extrahepatic bile duct dilatation with questionable 3 mm filling defect suspected to be a stone in the distal common duct at the ampulla. There are 3 small stones also present within the gallbladder. Consider correlating with ERCP. 2. There is mild peripancreatic edema which was not appreciated on the a prior CT. This may indicate early mild pancreatitis. 3. There is a small 2 cm diverticulum arising from the medial wall of the second portion of the duodenum posterior to the distal common duct. There is also a mild degree of edema adjacent to this structure which could represent inflammation of this structure or could represent edema secondary to the suspected pancreatitis. 4. Moderate to severe hepatic steatosis. GI Procedure 03/05/18 00:00 CONCLUSION: ERCP images. Myocardial Perfusion Scan Nuc Med 03/07/18 09:00 CONCLUSION: 1. Slight to moderate ischemia anteroseptal wall. Abdomen/Pelvis CT 03/10/18 00:00 CONCLUSION: 1. Induration surrounding the pancreas likely from acute pancreatitis. 2. Minimal bilateral pleural effusions with accompanying atelectasis. 3. Colonic diverticula. 4. Degenerative change in the lumbar spine. ECG Data EKG Prior to Arrival: No Attestation: I personally reviewed and interpreted this ECG as follows: Prior ECG tracings: not available for review Interpretation: This rhythm rate [address] elevation poor R-wave progression anteroseptally possible age-indeterminate anterior MT Discharge Plan Discharge Disposition Patient Disposition: 30 Still Patient Discharge Condition Condition: Stable Discharge Order Discharge Orders: Discharge Order (Routine); Ordered 03/14/18 Ordered By: Harish Peña Cardiology Clear for Discharge (Routine); Ordered 03/15/18 Ordered By: Harish Peañ Endocrinology Clear for Discharge (Routine); Ordered 03/15/18 Ordered By: Harish Peña Discharge Details Diagnosis: Pancreatitis, Obstruction of gallbladder, Non-ST elevation MT (NSTEMI), Elevated troponin I level Physicians Team ED Provider: Daksha Landrum Primary Care Provider: Aureliano Tiwari Attending Provider: Harish Peña Other Providers: Tiana Deng ; Evan Vo E ; [employer] Status ED Status: Left Department Discharge Information Discharge Date/Time: 03/04/18 02:51
[2018-03-03 19:15] LABS: Chloride 98 meq/L (98-107); Potassium 3.8 meq/L (3.5-5.1); Sodium 134 meq/L (136-145)
[2018-03-03 19:19] LABS: Albumin 3.3 g/dL (3.4-5.0); Anion Gap 12 meq/L (5-15); Blood Urea Nitrogen 30 mg/dL (7-18); Carbon Dioxide 23.9 meq/L (21.0-32.0); Glucose,Random 162 mg/dL (74-106)
[2018-03-03 19:22] LABS: Alanine Aminotransferase 442 U/L (10-53); Aspartate Aminotransferase 315 U/L (15-37); Glomerular Filtration Rate 59 mL/min (>89)
[2018-03-03 19:23] LABS: Total Protein 8.7 g/dL (6.4-8.2)
[2018-03-03 19:24] LABS: Lipase 18749 U/L (73-393)
[2018-03-03 19:25] LABS: Alkaline Phosphatase 288 U/L (45-117)
[2018-03-03 19:31] LABS: Troponin I 2.18 ng/mL (0.02-0.05)
[2018-03-03] MEDS ORDERED: Piperacil/Tazo 4.5 GM Premix 4.5 GM/100 ML BAG IV.SIG ONE (19:43)
[2018-03-03 19:48] LABS: Eosinophils 1 % (0-4); Lymphocytes 6 % (9-44); Monocytes 1 % (0-8)
[2018-03-03 19:49] LABS: Platelet Estimate Normal (Normal); Platelet Morphology Normal (Normal); RBC Morphology Normal (Normal)
[2018-03-03] MEDS: Sod Chloride 0.9% Inj 1,000 ML IV.CONT SCH (20:18)
[2018-03-03 20:25] LABS: Creatine Kinase 135 U/L (26-192)
--- NOTE | 2018-03-03 20:40 | CT ---
EXAM DATE: 03/03/2018 8:24 PM EDT AGE/SEX: 72 years / Female INDICATIONS: Right upper quadrant pain ad nausea for one week. CLINICAL DATA: This is the patient's initial encounter. Patient reports that signs and symptoms have been present for 1 week and indicates a pain score of 8/10. MEDICAL/SURGICAL HISTORY: Gastroesophageal reflux disease. Hypertension. None. ORAL CONTRAST: No oral contrast ingested. RADIATION DOSE: 21.57 CTDI (mGy) COMPARISON: No prior exams available for comparison. TECHNIQUE: Multiple contiguous axial images were obtained through the abdomen and pelvis following b olus infusion of 75 ml Omnipaque 350 (iohexol) nonionic water-soluble contrast as a single exam dos e. No oral contrast ingested. Using automated exposure control and adjustment of the mA and/or kV ac cording to patient size, radiation dose was kept as low as reasonably achievable to obtain optimal di agnostic quality images. DICOM format image data is available electronically for review and comparis on. FINDINGS: Lower Lungs: The visualized lower lungs are clear. Liver: The liver has a homogeneous density without space-occupying lesion. The gallbladder is distend ed with smooth margins and no calcifications within the lumen. The common bile duct and common hepati c duct is dilated up to 11 mm.. Some of the central biliary ducts aren't discernible, but do not appe ar dilated. Spleen: Homogeneous density without enlargement. Pancreas: Unremarkable without mass or calcification. The pancreatic duct in the head body and tail is discernible, but does not appear to be dilated. Kidneys: Normal in size and shape. No evidence of mass or hydronephrosis. Adrenal Glands: Unremarkable. Aorta: The aorta and proximal iliac vessels are grossly unremarkable without aneurysmal dilation. Bowel/Mesentery: No dilated loops of small or large bowel. A few small scattered diverticula in the sigmoid colon without radiographic evidence of diverticulitis. No evidence of free fluid. Abdominal Wall: Intact. Retroperitoneum: No evidence of adenopathy in the retrocrural, para-aortic, or deep pelvic regions. Bladder: Contours are smooth. Reproductive Organs: No abnormal masses or calcifications seen. Inguinal: Small left-sided fat-containing hernia. Bony Structures: Mild curvature of lumbar convex the right with multilevel discogenic degenerative c hanges and vacuum phenomenon. CONCLUSION: 1. No gallstones seen. The gallbladder is distended and the common bile duct is dilated down to the ampulla. There is also minimal prominence of the intrahepatic biliary ducts and the pancreatic duct. The findings suggest the possibility of obstruction at the level of the ampulla. Recommend direct vis ualization and possible biopsy with ERCP. 2. A few scattered sigmoid diverticula. 3. Small fat-containing left inguinal hernia. Electronically signed by: Kapil Flynn MD 03/03/2018 8:39 PM EDT
[2018-03-03 20:41] LABS: Creatine Kinase MB 8.7 ng/mL (0.5-3.6)
[2018-03-03] MEDS ORDERED: Bisacodyl 10 MG Supp RECTAL PRN (21:44)
[2018-03-03] MEDS ORDERED: Piperacil/Tazo 4.5 GM Premix 4.5 GM/100 ML BAG IV.SIG SCH (22:00)
[2018-03-03 22:01] LABS: Bilirubin,Urine Moderate (Negative); Clarity,Urine Clear (Clear); Glucose,Urine (UA) Negative (Negative); Leukocyte Esterase,Urine Negative (Negative); Nitrite,Urine Negative (Negative); Urobilinogen,Urine 0.2 mg/dL (Less than 2)
[2018-03-03 22:02] LABS: Color,Urine Amber (Yellw/Straw)
[2018-03-03 22:03] LABS: Ictotest,Urine Positive (Negative)
[2018-03-03 22:05] LABS: RBC,Urine 0-3 /hpf (0-3)
[2018-03-03] MEDS: Enoxaparin Inj 40 MG/0.4 ML Syringe SQ SCH (22:22)
[2018-03-04] MEDS: Piperacil/Tazo 4.5 GM Premix 4.5 GM/100 ML BAG IV.SIG SCH ×4 (02:12→20:24)
[2018-03-04] MEDS ORDERED: Morphine Sulfate Inj 2 MG/ML Vial ONE (03:25)
[2018-03-04] MEDS ORDERED: Sod Chloride 0.9% Inj 2,000 ML IV.SIG ONE (03:29)
--- NOTE | 2018-03-04 03:34 | P.HPCC ---
History of Present Illness Primary Care Physician: Aureliano Tiwari MD Chief Complaint: Epigastric abdominal pain History of Present Illness: Patient is a 72-year-old obese female with past medical history only significant for hypertension, and GI bleed from peptic ulcer, who presented to the emergency department at [place] for epigastric pain radiating to the right lower quadrant and to the back. Some associated nausea without vomiting. Patient has no history of any abdominal surgeries or pancreatitis in the past. Lab work showed 13,000 white blood cell count with left shift 13% bands, lactic acid 2.1, BUN 38 creatinine 0.93 AST 315, ALT 442, bilirubin 6.2 and also lipase 18,749. Patient had also troponin elevation to 2.2 without chest pain or EKG changes. GI was consulted by ER and Dr. Deng from cardiology also consulted. Cardiology recommends against IV heparin at this time. Cannot use aspirin due to NSAID allergy, will start IV metoprolol 2.5 mg every 6 hours. GI requested transfer to [facility] for ERCP I examined the patient after she arrived to the ICU. Patient appears dry anxious from pain. She clinically is doing interest and CT of the abdomen pelvis showed common bile duct is dilated down to the ampulla. This may indicate choledocholithiasis versus ampullary carcinoma causing obstruction. Patient will be treated with broad-spectrum antibiotics with Zosyn, give 2 L normal saline bolus and continue maintenance IV fluids. I have requested MRCP - Diagnosis (1) Acute pancreatitis (2) Severe sepsis (3) Acute kidney insufficiency (4) Lactic acidosis (5) Non-ST elevation [place] (NSTEMI) (6) Common bile duct dilatation (7) Jaundice Inpatient Certification: I certify that the inpatient services were ordered in accordance with Medicare regulations governing the order. This includes certification that hospital inpatient services are reasonable and necessary and in the case of services not specified as inpatient-only under 42 CFR 419.22(n), that they are appropriately provided as inpatient services in accordance to with the 2-midnight benchmark under 43 CFR 412.3(e) Estimated Total Length of Stay (Days): 5 Plans for Post Hospital Care: Not yet determined Review of Systems All other systems reviewed negative except as stated in HPI PMFSH - History History Provided By: Patient - Medical History Medical History: Medical History (Last Reviewed 03/04/18 @ 05:19 by Tiffany Arenas MD) GERD (gastroesophageal reflux disease) Hypertension Meniscal injury Peptic ulcer - Tobacco History Second Hand Smoke Exposure: No Tobacco Use In Past 30 Days: No Smoking Status: Never smoker - Alcohol History How Often Do You Have a Drink Containing Alcohol: Never - Travel History Recent Travel in the [place] Within the Last 8 Weeks: No Recent Travel Out of the Country Within the Last 8 Weeks: No - Immunization History Tetanus Immunization: >5 Years Hx Influenza Vaccine This Season: Yes Medications and Allergies Active Medications: Active Medications Al Hydroxide/Mg Hydroxide (Milk Of Magnesia Liq) 30 ml PO Q12H PRN PRN Reason: Mild Constipation Albuterol (Albuterol Neb (Prn)) 2.5 mg NEB Q2HR NEB PRN PRN Reason: SHORTNESS OF BREATH/WHEEZING Bisacodyl (Dulcolax Supp) 10 mg RECTAL DAILY PRN PRN Reason: SEVERE CONSITIPATION Chlorhexidine Gluconate (Chlorhexidine 2% Cloth) 3 pack TOPICAL DAILY@0400 [facility]EL Stop: 03/09/18 03:59 Chlorhexidine Gluconate (Chlorhexidine 2% Cloth) 3 pack TOPICAL DAILY@0400 PRN PRN Reason: Extra cloth needed Stop: 03/09/18 03:59 Enoxaparin Sodium (Lovenox Inj) 40 mg SQ Q24H [facility] Last Admin: 03/03/18 22:22 Dose: 40 mg Famotidine (Pepcid Pf Inj) 20 mg IV.PUSH Q12HR [facility] Sodium Chloride (Ns Inj) 1,000 mls @ 100 mls/hr IV.CONT .Q10H [facility] Last Admin: 03/03/18 20:18 Dose: 100 mls/hr Piperacillin/Tazobactam/Dextrose (Zosyn 4.5 Gm Premix) 4.5 gm in 100 mls @ 200 mls/hr IV.SIG Q6H [facility] Last Infusion: 03/04/18 02:50 Dose: Infused Sodium Chloride (Ns Inj) 2,000 mls @ 0 mls/hr IV.SIG BOLUS ONE Stop: 03/04/18 03:30 Lactulose (Lactulose Liq) 30 ml PO DAILY PRN PRN Reason: SEVERE CONSITIPATION Morphine Sulfate (Morphine Inj) 2 mg IV.PUSH Q4H PRN PRN Reason: pain 5-10 Senna/Docusate Sodium (Rochelle-Colace) 1 tab PO BID [facility]IGUEL Sennosides (Senokot) 17.2 mg PO Q12H PRN PRN Reason: Moderate Constipation Sodium Chloride (Ns Flush) 2 ml IV.FLUSH PRN PRN PRN Reason: FLUSH AFTER USING IV ACCESS Last Admin: 03/03/18 19:19 Dose: 2 ml Sodium Chloride (Ns Flush) 2 ml IV.FLUSH BID MIGUEL Sodium Chloride (Ns Flush) 2 ml IV.FLUSH PRN PRN PRN Reason: FLUSH AFTER USING IV ACCESS Allergies Allergy/AdvReac Type Severity Reaction Status Date / Time naproxen Allergy Severe Swelling Verified 03/03/18 14:40 of Lip/Tongue/Throat acetaminophen [From Lortab] Allergy Intermediate Nausea/Vomi Verified 03/03/18 14:40 ting hydrocodone [From Lortab] Allergy Intermediate Nausea/Vomi Verified 03/03/18 14: 40 ting meperidine Allergy Intermediate Palpitation Verified 03/03/18 14:40 s promethazine Allergy Intermediate Palpitation Verified 03/03/18 14:40 s Home Medications Medication Instructions Recorded Confirmed Type metoprolol tartrate 25 mg PO BID 03/03/18 03/03/18 History omeprazole 40 mg PO DAILY 03/03/18 03/03/18 History Results - Labs CBC & Chem 7: 03/03/18 19:00 03/03/18 19:00 Labs: Short CBC 03/03/18 Range/Units 19:00 WBC 13.0 H (4.0-11.0) th/mm3 Hgb 15.6 H (11.6-15.3) gm/dL Hct 46.3 H (35.0-46.0) % Plt Count 254 (150-450) th/mm3 [facility] 03/03/18 19:00 Sodium 134 L Potassium 3.8 Chloride 98 Carbon Dioxide 23.9 BUN 30 H Creatinine 0.93 Calcium 10.0 Cardiac Enzymes 03/03/18 03/03/18 Range/Units 19:00 22:25 Total Creatine Kinase 135 (26-192) U/L CK-MB (CK-2) 8.7 H (0.5-3.6) ng/mL Troponin I 2.18 H* 2.26 H* (0.02-0.05) ng/mL Liver Function 03/03/18 Range/Units 19:00 Total Bilirubin 6.2 H (0.2-1.0) mg/dL AST 315 H (15-37) U/L ALT 442 H (10-53) U/L Alkaline Phosphatase 288 H (45-117) U/L Albumin 3.3 L (3.4-5.0) g/dL Urine 03/03/18 Range/Units 21:40 Urine Color Ally H (Yellw/Straw) Urine Clarity Clear (Clear) Urine pH 5.0 (5.0-8.5) Ur Specific [place] 1.020 (1.002-1.035) Urine Protein 100 H (Neg-Trace) mg/dL Urine Glucose (UA) Negative (Negative) mg/dL - Imaging Impressions Abdomen/Pelvis CT 03/03/18 18:42 CONCLUSION: 1. No gallstones seen. The gallbladder is distended and the common bile duct is dilated down to the ampulla. There is also minimal prominence of the intrahepatic biliary ducts and the pancreatic duct. The findings suggest the possibility of obstruction at the level of the ampulla. Recommend direct visualization and possible biopsy with ERCP. 2. A few scattered sigmoid diverticula. 3. Small fat-containing left inguinal hernia. Exam Vital signs: Vital Signs 03/03/18 14:34 03/03/18 18:47 03/03/18 19:07 Temperature 97.7 F Pulse Rate 70 95 H 94 H Respiratory Rate 16 16 18 Blood Pressure 118/69 160/80 H 159/81 H Pulse Oximetry 93 L 98 03/03/18 19:08 03/03/18 20:23 03/03/18 20:33 Temperature Pulse Rate 91 H 89 Respiratory Rate 18 Blood Pressure 142/103 H 166/86 H Pulse Oximetry 94 L 96 03/03/18 22:31 03/04/18 00:02 03/04/18 02:17 Temperature 98.7 F Pulse Rate 88 89 92 H Respiratory Rate 18 18 18 Blood Pressure 149/85 H 119/68 136/70 Pulse Oximetry 97 96 97 Intake & Output 03/03/18 03/03/18 03/04/18 06:59 18:59 06:59 Intake Total 200 / 200 Output Total 300 / 300 Balance -100 / -100 Weight 90.5 kg 96.5 kg Intake: IV 200 / 200 Zosyn 4.5 GM Premix 4.5 gm In 200 / 200 100 ml @ 200 mls/hr IV.SIG Q6H MIGUEL Rx#:[id number] Output: Urine 300 / 300 Other: # Voids 1 Weight On Admission 96.5 kg Narrative: GENERAL: 72-year-old obese female SKIN: Dry jaundiced skin. HEAD: Atraumatic. Normocephalic. EYES: Pupils equal and round. Scleral icterus present ENT: No nasal bleeding or discharge. Mucous membranes pink and moist. NECK: Trachea midline. No JVD. CARDIOVASCULAR: Regular rate and rhythm. No murmur appreciated. RESPIRATORY: No accessory muscle use. Clear to auscultation. Breath sounds equal bilaterally. GASTROINTESTINAL: Abdomen soft, Moderately tender in the epigastric region with negative [place] sign. NEUROLOGICAL: Awake and alert. No obvious cranial nerve deficits. Motor grossly within normal limits. Normal speech. Septic Shock Reassessment Septic shock perfusion: reassessment completed Caprini VTE Risk Assessment Caprini VTE Risk Assessment: Moderate/High Risk (score >= 2) Caprini Risk Assessment Model: Point Value = 1 Point Value = 2 Point Value = 3 Point Value = 5 Age 41-60 Minor surgery BMI > 25 kg/m2 Swollen legs Varicose veins or History of unexplained or recurrent spontaneous Oral contraceptives or hormone replacement Sepsis (< 1 month) Serious lung disease, including pneumonia (< 1 month) Abnormal pulmonary function Acute myocardial infarction Congestive heart failure (< 1 month) History of inflammatory bowel disease Medical patient at bed rest Age 61-74 Arthroscopic surgery Major open surgery (> 45 min) Laparoscopic surgery (> 45 min) Malignancy Confined to bed (> 72 hours) Immobilizing plaster cast Central venous access Age >= 75 History of VTE Family history of VTE Factor V Leiden Prothrombin [id number] Lupus anticoagulant Anticardiolipin antibodies Elevated serum homocysteine Heparin-induced thrombocytopenia Other congenital or acquired thrombophilia Stroke (< 1 month) Elective arthroplasty Hip, pelvis, or leg fracture Acute spinal cord injury (< 1 month) Prophylaxis Regimen: Total Risk Factor Score Risk Level Prophylaxis Regimen 0-1 Low Early ambulation 2 Moderate Order ONE of the following: *Sequential Compression Device (SCD) *Heparin 5000 units SQ BID 3-4 Higher Order ONE of the following medications: *Heparin 5000 units SQ TID *Enoxaparin/Lovenox 40 mg SQ daily (WT < 150 kg, CrCl > 30 mL/min) *Enoxaparin/Lovenox 30 mg SQ daily (WT < 150 kg, CrCl > 10-29 mL/min) *Enoxaparin/Lovenox 30 mg SQ BID (WT < 150 kg, CrCl > 30 mL/min) AND/OR *Sequential Compression Device (SCD) 5 or more Highest Order ONE of the following medications: *Heparin 5000 units SQ TID (Preferred with Epidurals) *Enoxaparin/Lovenox 40 mg SQ daily (WT < 150 kg, CrCl > 30 mL/min) *Enoxaparin/Lovenox 30 mg SQ daily (WT < 150 kg, CrCl > 10-29 mL/min) *Enoxaparin/Lovenox 30 mg SQ BID (WT < 150 kg, CrCl > 30 mL/min) AND *Sequential Compression Device (SCD) Assessment and Plan - Problem List (1) Acute pancreatitis Code(s): K85.90 - Acute pancreatitis without necrosis or infection, unspecified Status: Acute (2) Severe sepsis Code(s): A41.9 - Sepsis, unspecified organism; R65.20 - Severe sepsis without septic shock Status: Acute (3) Acute kidney insufficiency Code(s): N28.9 - Disorder of kidney and ureter, unspecified Status: Acute (4) Lactic acidosis Code(s): E87.2 - Acidosis Status: Acute (5) Non-ST elevation [place] (NSTEMI) Code(s): I21.4 - Non-ST elevation (NSTEMI) myocardial infarction Status: Acute (6) Common bile duct dilatation Code(s): K83.8 - Other specified diseases of biliary tract Status: Acute (7) Jaundice Code(s): R17 - Unspecified jaundice Status: Acute - Assessment and Plan Plan: NEURO: -Minimize sedation -Morphine 2 mg every 4 hours as needed for severe pain RESP: -Oxygen by nasal cannula -DuoNeb every 2 hours as needed -Incentive spirometry -ABG in 48 hours, for [place]'s criteria calculation CV: NSTEMI Lactic acidosis -Normal saline IV fluids 2L bolus and 100 ml per hour -2d echo, cardiology consult Dr. Deng, serial troponin -Change metoprolol to IV as the patient is n.p.o. -Cannot use aspirin as the patient has severe NSAID allergy -No IV heparin per cardiology GI: Acute pancreatitis Dilated common biliary duct -The common bile duct is dilated to the ampulla, most likely from obstruction at the level of ampulla. -Differential diagnoses include choledocholithiasis versus malignancy -GI consulted, ordered MRCP, will need ERCP once pancreatitis improves -N.p.o, IV Protonix : Acute kidney insufficiency -Monitor renal function closely. Strict I/O -As above ID: Severe sepsis -Antibiotics with Zosyn. -Blood urine and sputum cultures HEME: -Monitor CBC, coags ENDO: Hyperglycemia -Electrolyte replacement per protocol -Sliding scale insulin if needed PROPH: -Bilateral lower extremity SCDs. Lovenox/Protonix LINES: -Utilize peripheral IVs, central line if needed CC time 38 min Code Status: Full Discussed Condition With: Dr. Landrum
[2018-03-04] MEDS ORDERED: Chlorhexidine Gluconate 2% 1 Pack (2 Cloths) TOPICAL PRN (04:00)
[2018-03-04] MEDS: Metoprolol Inj 5 MG/5 ML Vial IV.PUSH SCH ×4 (04:36→21:00)
[2018-03-04] MEDS: Chlorhexidine Gluconate 2% 1 Pack (2 Cloths) TOPICAL SCH (04:36)
[2018-03-04 05:59] LABS: Alanine Aminotransferase 373 U/L (10-53); Anion Gap 8 meq/L (5-15); Aspartate Aminotransferase 277 U/L (15-37); Blood Urea Nitrogen 25 mg/dL (7-18); Calcium 9.1 mg/dL (8.5-10.1); Carbon Dioxide 22.3 meq/L (21.0-32.0); Chloride 103 meq/L (98-107); Glomerular Filtration Rate 73 mL/min (>89); Glucose,Random 128 mg/dL (74-106); Lactate Dehydrogenase 295 U/L (84-246); Magnesium 2.4 mg/dL (1.5-2.5); Potassium 4.2 meq/L (3.5-5.1); Sodium 133 meq/L (136-145)
[2018-03-04 06:02] LABS: Alkaline Phosphatase 263 U/L (45-117); Total Protein 7.3 g/dL (6.4-8.2)
[2018-03-04 06:06] LABS: Troponin I 1.43 ng/mL (0.02-0.05)
[2018-03-04 06:13] LABS: Albumin 2.6 g/dL (3.4-5.0)
[2018-03-04 06:15] LABS: Lipase 9046 U/L (73-393)
[2018-03-04] MEDS: Sod Chloride 0.9% Inj 1,000 ML IV.CONT SCH ×2 (06:27→17:08)
[2018-03-04] MEDS: Famotidine PF Inj 20 MG/2 ML Vial IV.PUSH SCH ×2 (08:51→20:28)
[2018-03-04] MEDS: Senna/Docusate Sodium 8.6/50 MG Tablet PO SCH ×2 (08:52→20:29)
--- NOTE | 2018-03-04 11:05 | P.CONGI ---
History of Present Illness Consult date: 03/04/08 Consult reason: Pancreatitis, cholelithiasis Chief complaint: NSTEMI; Choledocholithiasis/Pancreatitis History of Present Illness: 72-year-old obese female was admitted to the hospital and to be monitored in the intensive care setting on 03/03/2018. The [facility] and was transitioned here for epigastric pain radiating into the right upper quadrant and into her back. Onset of her symptoms had been approximately 1 week with associated nausea but no vomiting and patient denies any current dyspepsia. Patient denies any obvious hematemesis or rectal bleeding and denies any diarrhea or constipation. Patient usually sees [facility] and notes that she has a pending appointment coming up. Patient notes significant history of fatty liver disease and has had 2 liver biopsies in the past. Patient also notes EGD colonoscopy approximately 1-1/2 years ago and does have a history of bleeding ulcers and some precancerous lesions. Patient's epigastric pain was associated with chest pain and nausea so cardiac consultation is pending, but did state no IV heparin at this time according to the record. Patient denies any family history of colon cancer but notes she had a brother with significant bleeding ulcers and had a gastrectomy. CT scan showed no gallstones but did note distended gallbladder and the common bile duct dilated down to the ampulla. There is also minimal prominence of the intrahepatic biliary ducts and the pancreatic duct findings consistent with possibility of obstruction at the level of the ampulla recommend direct visualization and possible biopsy with ERCP. Sigmoid diverticula and small fat- containing left inguinal hernia. Current labs show AST is 277 ALT 373 total bilirubin now 5.9, lipase initially 18,749 now down to 9046, troponin 2.2 without acute EKG changes. Current hemoglobin 15.6, WBC count 13,000. <Jazmín Montalvo - Last Filed: 03/04/18 16:19> Review of Systems All other systems reviewed negative except as stated in HPI <Jazmín Montalvo - Last Filed: 03/04/18 16:19> PMFSH - History History Provided By: Patient - Medical History Medical History: Medical History (Last Reviewed 03/04/18 @ 05:19 by Tiffany Arenas MD) GERD (gastroesophageal reflux disease) Hypertension Meniscal injury Peptic ulcer - Tobacco History Second Hand Smoke Exposure: No Tobacco Use In Past 30 Days: No Smoking Status: Never smoker - Alcohol History How Often Do You Have a Drink Containing Alcohol: Never - Substance Use History Substance History: No History of Abuse - Travel History Recent Travel in the [place] Within the Last 8 Weeks: No Recent Travel Out of the Country Within the Last 8 Weeks: No - Immunization History Tetanus Immunization: >5 Years Hx Influenza Vaccine This Season: Yes <Jazmín Montalvo - Last Filed: 03/04/18 16:19> - Medical History Medical History: Medical History (Last Reviewed 03/04/18 @ 05:19 by Tiffany Arenas MD) GERD (gastroesophageal reflux disease) Hypertension Meniscal injury Peptic ulcer <Evan Vo - Last Filed: 03/04/18 21:10> Medications and Allergies Active Medications: Active Medications Al Hydroxide/Mg Hydroxide (Milk Of Magnesia Liq) 30 ml PO Q12H PRN PRN Reason: Mild Constipation Albuterol (Albuterol Neb (Prn)) 2.5 mg NEB Q2HR NEB PRN PRN Reason: SHORTNESS OF BREATH/WHEEZING Bisacodyl (Dulcolax Supp) 10 mg RECTAL DAILY PRN PRN Reason: SEVERE CONSITIPATION Chlorhexidine Gluconate (Chlorhexidine 2% Cloth) 3 pack TOPICAL DAILY@0400 [facility] Stop: 03/09/18 03:59 Last Admin: 03/04/18 04:36 Dose: 3 pack Chlorhexidine Gluconate (Chlorhexidine 2% Cloth) 3 pack TOPICAL DAILY@0400 PRN PRN Reason: Extra cloth needed Stop: 03/09/18 03:59 Enoxaparin Sodium (Lovenox Inj) 40 mg SQ Q24H [facility] Last Admin: 03/03/18 22:22 Dose: 40 mg Famotidine (Pepcid Pf Inj) 20 mg IV.PUSH Q12HR [facility] Last Admin: 03/04/18 08:51 Dose: 20 mg Sodium Chloride (Ns Inj) 1,000 mls @ 100 mls/hr IV.CONT .Q10H [facility] Last Admin: 03/04/18 06:27 Dose: 100 mls/hr Piperacillin/Tazobactam/Dextrose (Zosyn 4.5 Gm Premix) 4.5 gm in 100 mls @ 200 mls/hr IV.SIG Q6H [facility] Last Infusion: 03/04/18 09:30 Dose: Infused Lactulose (Lactulose Liq) 30 ml PO DAILY PRN PRN Reason: SEVERE CONSITIPATION Metoprolol Tartrate (Lopressor Inj) 2.5 mg IV.PUSH Q6H [facility] Last Admin: 03/04/18 10:45 Dose: 2.5 mg Morphine Sulfate (Morphine Inj) 2 mg IV.PUSH Q4H PRN PRN Reason: pain 5-10 Senna/Docusate Sodium (Rochelle-Colace) 1 tab PO BID [facility] Last Admin: 03/04/18 08:52 Dose: Not Given Sennosides (Senokot) 17.2 mg PO Q12H PRN PRN Reason: Moderate Constipation Sodium Chloride (Ns Flush) 2 ml IV.FLUSH PRN PRN PRN Reason: FLUSH AFTER USING IV ACCESS Last Admin: 03/03/18 19:19 Dose: 2 ml Sodium Chloride (Ns Flush) 2 ml IV.FLUSH BID [facility] Last Admin: 03/04/18 08:52 Dose: 2 ml Sodium Chloride (Ns Flush) 2 ml IV.FLUSH PRN PRN PRN Reason: FLUSH AFTER USING IV ACCESS <Jazmín Montalvo M - Last Filed: 03/04/18 16:19> Active Medications: Active Medications Al Hydroxide/Mg Hydroxide (Milk Of Magnesia Liq) 30 ml PO Q12H PRN PRN Reason: Mild Constipation Albuterol (Albuterol Neb (Prn)) 2.5 mg NEB Q2HR NEB PRN PRN Reason: SHORTNESS OF BREATH/WHEEZING Bisacodyl (Dulcolax Supp) 10 mg RECTAL DAILY PRN PRN Reason: SEVERE CONSITIPATION Chlorhexidine Gluconate (Chlorhexidine 2% Cloth) 3 pack TOPICAL DAILY@0400 [facility] Stop: 03/09/18 03:59 Last Admin: 03/04/18 04:36 Dose: 3 pack Chlorhexidine Gluconate (Chlorhexidine 2% Cloth) 3 pack TOPICAL DAILY@0400 PRN PRN Reason: Extra cloth needed Stop: 03/09/18 03:59 Enoxaparin Sodium (Lovenox Inj) 40 mg SQ Q24H [facility] Last Admin: 03/04/18 20:50 Dose: 40 mg Famotidine (Pepcid Pf Inj) 20 mg IV.PUSH Q12HR [facility] Last Admin: 03/04/18 20:28 Dose: 20 mg Sodium Chloride (Ns Inj) 1,000 mls @ 100 mls/hr IV.CONT .Q10H [facility] Last Admin: 03/04/18 17:08 Dose: 100 mls/hr Piperacillin/Tazobactam/Dextrose (Zosyn 4.5 Gm Premix) 4.5 gm in 100 mls @ 200 mls/hr IV.SIG Q6H [facility] Last Admin: 03/04/18 20:24 Dose: 200 mls/hr Lactulose (Lactulose Liq) 30 ml PO DAILY PRN PRN Reason: SEVERE CONSITIPATION Metoprolol Tartrate (Lopressor Inj) 2.5 mg IV.PUSH Q6H [facility] Last Admin: 03/04/18 21:00 Dose: 2.5 mg Morphine Sulfate (Morphine Inj) 2 mg IV.PUSH Q4H PRN PRN Reason: pain 5-10 Last Admin: 03/04/18 20:24 Dose: 2 mg Ondansetron HCl (Zofran Inj) 4 mg IV.PUSH Q6H PRN PRN Reason: NAUSEA Senna/Docusate Sodium (Rochelle-Colace) 1 tab PO BID [facility] Last Admin: 03/04/18 20:29 Dose: Not Given Sennosides (Senokot) 17.2 mg PO Q12H PRN PRN Reason: Moderate Constipation Sodium Chloride (Ns Flush) 2 ml IV.FLUSH PRN PRN PRN Reason: FLUSH AFTER USING IV ACCESS Last Admin: 03/03/18 19:19 Dose: 2 ml Sodium Chloride (Ns Flush) 2 ml IV.FLUSH BID [facility] Last Admin: 03/04/18 20:30 Dose: 2 ml Sodium Chloride (Ns Flush) 2 ml IV.FLUSH PRN PRN PRN Reason: FLUSH AFTER USING IV ACCESS <Evan Vo E - Last Filed: 03/04/18 21:10> Allergies Allergy/AdvReac Type Severity Reaction Status Date / Time naproxen Allergy Severe Swelling Verified 03/03/18 14:40 of Lip/Tongue/Throat acetaminophen [From Lortab] Allergy Intermediate Nausea/Vomi Verified 03/03/18 14:40 ting hydrocodone [From Lortab] Allergy Intermediate Nausea/Vomi Verified 03/03/18 14: 40 ting meperidine Allergy Intermediate Palpitation Verified 03/03/18 14:40 s promethazine Allergy Intermediate Palpitation Verified 03/03/18 14:40 s Home Medications Medication Instructions Recorded Confirmed Type metoprolol tartrate 25 mg PO BID 03/03/18 03/03/18 History omeprazole 40 mg PO DAILY 03/03/18 03/03/18 History Exam Vital signs: Vital Signs 03/03/18 14:34 03/03/18 18:47 03/03/18 19:07 Temperature 97.7 F Pulse Rate 70 95 H 94 H Respiratory Rate 16 16 18 Blood Pressure 118/69 160/80 H 159/81 H Pulse Oximetry 93 L 98 03/03/18 19:08 03/03/18 20:23 03/03/18 20:33 Temperature Pulse Rate 91 H 89 Respiratory Rate 18 Blood Pressure 142/103 H 166/86 H Pulse Oximetry 94 L 96 03/03/18 22:31 03/04/18 00:02 03/04/18 02:17 Temperature 98.7 F Pulse Rate 88 89 92 H Respiratory Rate 18 18 18 Blood Pressure 149/85 H 119/68 136/70 Pulse Oximetry 97 96 97 03/04/18 03:19 03/04/18 03:21 03/04/18 04:00 Temperature 98.6 F Pulse Rate 98 H 90 86 Respiratory Rate 25 H 27 H 18 Blood Pressure 148/85 H 145/79 H Pulse Oximetry 92 L 94 L 03/04/18 05:00 03/04/18 06:00 03/04/18 07:00 Temperature Pulse Rate 83 81 106 H Respiratory Rate 17 19 31 H Blood Pressure 167/79 H 142/84 H Pulse Oximetry 98 97 91 L 03/04/18 07:01 03/04/18 08:00 03/04/18 08:50 Temperature 98.6 F Pulse Rate 98 H 93 H Respiratory Rate 29 H 19 Blood Pressure 148/94 H 144/82 H Pulse Oximetry 87 L 96 96 03/04/18 08:51 03/04/18 09:00 03/04/18 10:00 Temperature Pulse Rate 86 87 Respiratory Rate 26 H 25 H Blood Pressure 131/81 155/65 H Pulse Oximetry 96 97 96 Intake & Output 08/20/18 08/21/18 08/21/18 18:59 06:59 18:59 Intake Total 3200 / 3200 100 / 100 Output Total 305 / 305 Balance 2895 / 2895 100 / 100 Weight 90.5 kg 97 kg Intake: IV 3200 / 3200 100 / 100 NS Inj 1,000 ML @ 100 mls/hr IV 1000 / 1000 .CONT .Q10H [facility] Rx#:[id number] Zosyn 4.5 GM Premix 4.5 gm In 200 / 200 100 / 100 100 ml @ 200 mls/hr IV.SIG Q6H [facility] Rx#:[id number] NS Inj 2,000 ML @ Wide Open IV. 1999 SIG BOLUS ONE Rx#:[id number] Output: Urine 305 / 305 Other: # Voids 1 Weight On Admission 96.5 kg - Constitutional mild distress, morbidly obese - Routine HEENT Exam Head: Present: normocephalic ENT: Present: mucous membranes moist - Routine Neck Exam Present: supple (Obese) - Routine Abdominal Exam Present: soft (Round, obese, soft bowel sounds epigastric tenderness and epigastric pain) - Routine Skin Exam Present: intact - Routine Neurological Exam Present: alert <Jazmín Montalvo - Last Filed: 03/04/18 16:19> Vital signs: Vital Signs 03/03/18 22:31 03/04/18 00:02 03/04/18 02:17 Temperature 98.7 F Pulse Rate 88 89 92 H Respiratory Rate 18 18 18 Blood Pressure 149/85 H 119/68 136/70 Pulse Oximetry 97 96 97 03/04/18 03:19 03/04/18 03:21 03/04/18 04:00 Temperature 98.6 F Pulse Rate 98 H 90 86 Respiratory Rate 25 H 27 H 18 Blood Pressure 148/85 H 145/79 H Pulse Oximetry 92 L 94 L 03/04/18 05:00 03/04/18 06:00 03/04/18 07:00 Temperature Pulse Rate 83 81 106 H Respiratory Rate 17 19 31 H Blood Pressure 167/79 H 142/84 H Pulse Oximetry 98 97 91 L 03/04/18 07:01 03/04/18 08:00 03/04/18 08:50 Temperature 98.6 F Pulse Rate 98 H 93 H Respiratory Rate 29 H 19 Blood Pressure 148/94 H 144/82 H Pulse Oximetry 87 L 96 96 03/04/18 08:51 03/04/18 09:00 03/04/18 10:00 Temperature Pulse Rate 86 87 Respiratory Rate 26 H 25 H Blood Pressure 131/81 155/65 H Pulse Oximetry 96 97 96 03/04/18 11:00 03/04/18 12:45 03/04/18 12:46 Temperature Pulse Rate 87 80 82 Respiratory Rate 21 25 H 18 Blood Pressure 158/70 H 143/81 H Pulse Oximetry 97 03/04/18 13:00 03/04/18 13:13 03/04/18 14:00 Temperature 98.4 F Pulse Rate 81 84 83 Respiratory Rate 18 18 Blood Pressure 167/90 H Pulse Oximetry 03/04/18 15:00 03/04/18 16:00 03/04/18 17:00 Temperature 98.4 F Pulse Rate 81 88 78 Respiratory Rate 26 H 26 H 19 Blood Pressure 143/71 H 179/86 H 183/91 H Pulse Oximetry 99 98 99 03/04/18 18:00 03/04/18 18:20 Temperature Pulse Rate 93 H 85 Respiratory Rate 33 H 22 Blood Pressure 205/98 H 196/125 H Pulse Oximetry 98 99 Intake & Output 03/04/18 03/04/18 03/05/18 06:59 18:59 06:59 Intake Total 3200 / 3200 1200 / 1200 Output Total 305 / 305 950 / 950 Balance 2895 / 2895 250 / 250 Weight 97 kg Intake: IV 3200 / 3200 1200 / 1200 NS Inj 1,000 ML @ 100 mls/hr IV 1000 / 1000 1000 / 1000 .CONT .Q10H [facility] Rx#:[id number] Zosyn 4.5 GM Premix 4.5 gm In 200 / 200 200 / 200 100 ml @ 200 mls/hr IV.SIG Q6H [facility] Rx#:[id number] NS Inj 2,000 ML @ Wide Open IV. 1999 SIG BOLUS ONE Rx#:[id number] Output: Urine 305 / 305 950 / 950 Other: # Voids 1 Weight On Admission 96.5 kg <Evan Vo E - Last Filed: 03/04/18 21:10> Results - Labs CBC & Chem 7: 03/04/18 13:04 03/04/18 05:26 Labs: Laboratory Results - last 24 hr 03/03/18 03/03/18 03/03/18 19:00 19:00 20:14 CBC w Diff Slide review pending WBC 13.0 H RBC 5.12 Hgb 15.6 H Hct 46.3 H MCV 90.5 MCH 30.6 MCHC 33.8 RDW 14.0 Plt Count 254 MPV 8.0 WBC Differential Manual diff final Seg Neuts % (Manual) 79 H Band Neuts % (Manual) 13 H Lymphocytes % (Manual) 6 L Monocytes % (Manual) 1 Eosinophils % (Manual) 1 Abs Neuts (Manual) 12.0 H Differential Comment . Platelet Estimate Normal Platelet Morphology Normal RBC Morphology Normal Sodium 134 L Potassium 3.8 Chloride 98 Carbon Dioxide 23.9 Anion Gap 12 BUN 30 H Creatinine 0.93 Estimated GFR 59 L Random Glucose 162 H Lactic Acid 2.1 H Calcium 10.0 Magnesium Total Bilirubin 6.2 H AST 315 H ALT 442 H Alkaline Phosphatase 288 H Lactate Dehydrogenase Total Creatine Kinase 135 CK-MB (CK-2) 8.7 H Troponin I 2.18 H* Total Protein 8.7 H Albumin 3.3 L Lipase 84098 H Urine Color Urine Clarity Urine pH Ur Specific [place] Urine Protein Urine Glucose (UA) Urine Ketones Urine Occult Blood Urine Nitrate Urine Bilirubin Urine Ictotest Urine Urobilinogen Ur Leukocyte Esterase Urine RBC Urine WBC Ur Squamous Epith Cells Fine Granular Casts Coarse Granular Casts Micro UA Comment Urine Culture Comments Nasal Screen MRSA (PCR) 03/03/18 03/03/18 03/04/18 21:40 22:25 03:24 CBC w Diff WBC RBC Hgb Hct MCV MCH MCHC RDW Plt Count MPV WBC Differential Seg Neuts % (Manual) Band Neuts % (Manual) Lymphocytes % (Manual) Monocytes % (Manual) Eosinophils % (Manual) Abs Neuts (Manual) Differential Comment Platelet Estimate Platelet Morphology RBC Morphology Sodium Potassium Chloride Carbon Dioxide Anion Gap BUN Creatinine Estimated GFR Random Glucose Lactic Acid Calcium Magnesium Total Bilirubin AST ALT Alkaline Phosphatase Lactate Dehydrogenase Total Creatine Kinase CK-MB (CK-2) Troponin I 2.26 H* Total Protein Albumin Lipase Urine Color Ally H Urine Clarity Clear Urine pH 5.0 Ur Specific [place] 1.020 Urine Protein 100 H Urine Glucose (UA) Negative Urine Ketones 15 H Urine Occult Blood Trace Urine Nitrate Negative Urine Bilirubin Moderate H Urine Ictotest Positive H Urine Urobilinogen 0.2 Ur Leukocyte Esterase Negative Urine RBC 0-3 Urine WBC 6-8 H Ur Squamous Epith Cells 6-10 H Fine Granular Casts 1-3 H Coarse Granular Casts 1-3 H Micro UA Comment Culture not ind Urine Culture Comments Culture not ind Nasal Screen MRSA (PCR) Not detected 03/04/18 05:26 CBC w Diff WBC RBC Hgb Hct MCV MCH MCHC RDW Plt Count MPV WBC Differential Seg Neuts % (Manual) Band Neuts % (Manual) Lymphocytes % (Manual) Monocytes % (Manual) Eosinophils % (Manual) Abs Neuts (Manual) Differential Comment Platelet Estimate Platelet Morphology RBC Morphology Sodium 133 L Potassium 4.2 Chloride 103 Carbon Dioxide 22.3 Anion Gap 8 BUN 25 H Creatinine 0.77 Estimated GFR 73 L Random Glucose 128 H Lactic Acid Calcium 9.1 D Magnesium 2.4 Total Bilirubin 5.9 H AST 277 H ALT 373 H Alkaline Phosphatase 263 H Lactate Dehydrogenase 295 H Total Creatine Kinase CK-MB (CK-2) Troponin I 1.43 H* D Total Protein 7.3 D Albumin 2.6 L D Lipase 9046 H Urine Color Urine Clarity Urine pH Ur Specific [place] Urine Protein Urine Glucose (UA) Urine Ketones Urine Occult Blood Urine Nitrate Urine Bilirubin Urine Ictotest Urine Urobilinogen Ur Leukocyte Esterase Urine RBC Urine WBC Ur Squamous Epith Cells Fine Granular Casts Coarse Granular Casts Micro UA Comment Urine Culture Comments Nasal Screen MRSA (PCR) - Imaging Impressions Abdomen/Pelvis CT 03/03/18 18:42 CONCLUSION: 1. No gallstones seen. The gallbladder is distended and the common bile duct is dilated down to the ampulla. There is also minimal prominence of the intrahepatic biliary ducts and the pancreatic duct. The findings suggest the possibility of obstruction at the level of the ampulla. Recommend direct visualization and possible biopsy with ERCP. 2. A few scattered sigmoid diverticula. 3. Small fat-containing left inguinal hernia. <Jazmín Montalvo - Last Filed: 03/04/18 16:19> - Labs CBC & Chem 7: 03/04/18 13:04 03/04/18 05:26 Labs: Laboratory Results - last 24 hr 03/03/18 03/03/18 03/04/18 21:40 22:25 03:24 WBC RBC Hgb Hct MCV MCH MCHC RDW Plt Count MPV Neut % (Auto) Lymph % (Auto) [place] % (Auto) Eos % (Auto) Baso % (Auto) Neut # (Auto) Lymph # (Auto) [place] # (Auto) Eos # (Auto) Baso # (Auto) WBC Differential Differential Comment Sodium Potassium Chloride Carbon Dioxide Anion Gap BUN Creatinine Estimated GFR Random Glucose Lactic Acid Calcium Magnesium Total Bilirubin AST ALT Alkaline Phosphatase Lactate Dehydrogenase Troponin I 2.26 H* Total Protein Albumin Lipase Urine Color Ally H Urine Clarity Clear Urine pH 5.0 Ur Specific [place] 1.020 Urine Protein 100 H Urine Glucose (UA) Negative Urine Ketones 15 H Urine Occult Blood Trace Urine Nitrate Negative Urine Bilirubin Moderate H Urine Ictotest Positive H Urine Urobilinogen 0.2 Ur Leukocyte Esterase Negative Urine RBC 0-3 Urine WBC 6-8 H Ur Squamous Epith Cells 6-10 H Fine Granular Casts 1-3 H Coarse Granular Casts 1-3 H Micro UA Comment Culture not ind Urine Culture Comments Culture not ind Nasal Screen MRSA (PCR) Not detected 03/04/18 03/04/18 03/04/18 05:26 11:12 13:04 WBC 7.5 RBC 4.52 Hgb 13.9 Hct 41.2 MCV 91.2 MCH 30.8 MCHC 33.8 RDW 14.7 Plt Count 194 MPV 7.9 Neut % (Auto) 78.6 H Lymph % (Auto) 11.7 [place] % (Auto) 8.9 H Eos % (Auto) 0.6 Baso % (Auto) 0.2 Neut # (Auto) 5.9 Lymph # (Auto) 0.9 L [place] # (Auto) 0.7 Eos # (Auto) 0.0 Baso # (Auto) 0.0 WBC Differential . Differential Comment Auto diff final Sodium 133 L Potassium 4.2 Chloride 103 Carbon Dioxide 22.3 Anion Gap 8 BUN 25 H Creatinine 0.77 Estimated GFR 73 L Random Glucose 128 H Lactic Acid 0.4 Calcium 9.1 D Magnesium 2.4 Total Bilirubin 5.9 H AST 277 H ALT 373 H Alkaline Phosphatase 263 H Lactate Dehydrogenase 295 H Troponin I 1.43 H* D Total Protein 7.3 D Albumin 2.6 L D Lipase 9046 H Urine Color Urine Clarity Urine pH Ur Specific [place] Urine Protein Urine Glucose (UA) Urine Ketones Urine Occult Blood Urine Nitrate Urine Bilirubin Urine Ictotest Urine Urobilinogen Ur Leukocyte Esterase Urine RBC Urine WBC Ur Squamous Epith Cells Fine Granular Casts Coarse Granular Casts Micro UA Comment Urine Culture Comments Nasal Screen MRSA (PCR) - Imaging Impressions Cholangiopancreatography MRI 03/04/18 00:00 CONCLUSION: 1. Abnormal extrahepatic bile duct dilatation with questionable 3 mm filling defect suspected to be a stone in the distal common duct at the ampulla. There are 3 small stones also present within the gallbladder. Consider correlating with ERCP. 2. There is mild peripancreatic edema which was not appreciated on the a prior CT. This may indicate early mild pancreatitis. 3. There is a small 2 cm diverticulum arising from the medial wall of the second portion of the duodenum posterior to the distal common duct. There is also a mild degree of edema adjacent to this structure which could represent inflammation of this structure or could represent edema secondary to the suspected pancreatitis. 4. Moderate to severe hepatic steatosis. <Evan Vo E - Last Filed: 03/04/18 21:10> Assessment and Plan (1) Pancreatitis Status: Acute Code(s): K85.90 - Acute pancreatitis without necrosis or infection, unspecified (2) Obstruction of gallbladder Status: Acute Code(s): K82.0 - Obstruction of gallbladder (3) Acute pancreatitis Status: Acute Code(s): K85.90 - Acute pancreatitis without necrosis or infection, unspecified (4) Severe sepsis Status: Acute Code(s): A41.9 - Sepsis, unspecified organism; R65.20 - Severe sepsis without septic shock - Plan 72-year-old obese female with symptoms of epigastric pain radiating into the right upper quadrant 1 week. Nausea, no vomiting no heartburn, Fatty liver disease with previous 2 liver biopsies obtained. Current labs show elevated AST 277, ALT 373, bilirubin 5.9, lipase level now 9046. Patient did have positive troponin 2.2, as well as epigastric chest pain. Cardiology consult is pending The patient's been monitored in the intensive care setting she notes EGD colonoscopy done 1.5 years ago, borderline Ivette. Noted history of bleeding ulcers and some precancerous lesions. No family history of colon cancer but positive for polyps and brother had partial gastrectomy for bleeding ulcers. Currently patient has no obvious GI bleeding. CT scan showed no gallstones, gallbladder distended, common bile duct dilated to the ampulla.\She was transitioned here from [place] and Dr. Vo was contacted to perform ERCP. Addendum note at 1615. Spoke to cardiology , spoke cardiac clearance given to follow through with ERCP. will maintain n.p.o. for now Plan Diet n.p.o. Monitor labs with special attention to biliary system Consent ERCP, time pending, probable a.m. Further recommendations to follow Patient was seen per myself and Dr. Vo, note was written on his behalf <Jazmín Montalvo M - Last Filed: 03/04/18 16:19> (1) Pancreatitis Status: Acute Code(s): K85.90 - Acute pancreatitis without necrosis or infection, unspecified (2) Obstruction of gallbladder Status: Acute Code(s): K82.0 - Obstruction of gallbladder (3) Acute pancreatitis Status: Acute Code(s): K85.90 - Acute pancreatitis without necrosis or infection, unspecified (4) Severe sepsis Status: Acute Code(s): A41.9 - Sepsis, unspecified organism; R65.20 - Severe sepsis without septic shock - Attending Attestation Patient seen and examined Agree with above Continue with current supportive care Monitor labs Recommend aggressive hydration Recommend ERCP <Evan Vo E - Last Filed: 03/04/18 21:10> <Jazmín Montalvo M - Last Filed: 03/04/18 16:19> (1) Pancreatitis Qualifiers: Chronicity: acute Pancreatitis type: biliary Acute pancreatitis complication : unspecified Qualified Code(s): K85.10 - Biliary acute pancreatitis without necrosis or infection <Evan Vo E - Last Filed: 03/04/18 21:10> (1) Pancreatitis Qualifiers: Chronicity: acute Pancreatitis type: biliary Acute pancreatitis complication : unspecified Qualified Code(s): K85.10 - Biliary acute pancreatitis without necrosis or infection
[2018-03-04 13:16] LABS: Baso % (Auto) 0.2 % (0.0-2.0); Eos % (Auto) 0.6 % (0.0-4.0); Hematocrit 41.2 % (35.0-46.0); Hemoglobin 13.9 gm/dL (11.6-15.3); Lymph # (Auto) 0.9 th/mm3 (1.0-4.8); Lymph % (Auto) 11.7 % (9.0-44.0); Mean Corpuscular HGB Conc 33.8 % (32.0-36.0); Mean Corpuscular Hemoglobin 30.8 pg (27.0-34.0); Mean Corpuscular Volume 91.2 fL (80.0-100.0); Mean Platelet Volume 7.9 fL (7.0-11.0); Mono # (Auto) 0.7 th/mm3 (0.0-0.9); Mono % (Auto) 8.9 % (0.0-8.0); Neut # (Auto) 5.9 th/mm3 (1.8-7.7); Neut % (Auto) 78.6 % (16.0-70.0); Platelet Count 194 th/mm3 (150-450); Red Blood Count 4.52 mil/mm3 (4.00-5.30); Red Cell Distribution Width 14.7 % (11.6-17.2); White Blood Count 7.5 th/mm3 (4.0-11.0)
[2018-03-04] MEDS: Morphine Inj 4 MG/ML Vial IV.PUSH PRN ×2 (13:45→20:24)
--- NOTE | 2018-03-04 15:37 | MB ---
cc: Sedrick Senior DO DATE: 03/04/2018 REASON FOR CONSULTATION: Elevated troponin. HISTORY OF PRESENT ILLNESS: Conchis Perez is a pleasant 72-year-old female who presented to [facility] in [place] for epigastric pain radiating to her right lower quadrant and into her back. She states that she has had some nausea without vomiting with this. In discussing with her, she states that she had no chest pain and that the pain was all in the area from the epigastric to the umbilicus. During her workup, she was found to have probable gallstone pancreatitis and an elevated troponin. Troponin has since decreased. She is currently hemodynamically stable. I was asked to see her due to the elevated troponin as well as for preoperative cardiovascular exam. PAST MEDICAL HISTORY: 1. GERD. 2. Hypertension. 3. Gastrointestinal bleed with peptic ulcer with disease. 4. NSAID ALLERGIES. PAST SURGICAL HISTORY: Denies. ALLERGIES: 1. NAPROXEN. 2. ACETAMINOPHEN. 3. HYDROCODONE. 4. MEPERIDINE. 5. PROMETHAZINE. MEDICATIONS: 1. Metoprolol tartrate 25 mg b.i.d. 2. Omeprazole 40 mg daily. FAMILY HISTORY: Denies premature coronary artery disease or sudden cardiac within the family. SOCIAL HISTORY: The patient denies tobacco, alcohol, or drug abuse. REVIEW OF SYSTEMS: Fourteen systems were reviewed, including osteopathic. Pertinent positives and negatives above, otherwise negative. PHYSICAL EXAMINATION: VITAL SIGNS: Temperature 98.6, heart rate 90, blood pressure 144/82, respirations 18, pulse oximetry 96% on 2 liters. GENERAL: The patient appears well, in no acute distress. Alert, awake and oriented x3. HEENT: Extraocular muscles intact. Mucous membranes moist. NECK: Supple. No JVD at 45 degrees. No carotid bruits heard bilaterally. Carotid upstrokes brisk in nature. HEART: Regular rate and rhythm. Positive first and second heart sounds with no noted murmurs, gallops, or rubs. LUNGS: Clear to auscultation bilaterally. No wheezes, rales, or rhonchi. ABDOMEN: Soft and tender, but no guarding noted. EXTREMITIES: Show trace edema. Femoral and distal pulses intact bilaterally. NEUROLOGIC: No focal deficits. SKIN: Warm, dry, and intact. OSTEOPATHIC: Mild lordosis, no kyphoscoliosis or paraspinal tender points. LABORATORY DATA: Hemoglobin 15.6, hematocrit 46.3, platelets 254. Potassium 3.8, BUN 30, creatinine 0.93. Troponin 2.26, decreasing to 1.43. Lipase 18,749. DIAGNOSTIC DATA: Electrocardiogram (03/03/2018 at 1932): Sinus rhythm, poor R-wave progression, nonspecific ST-T wave changes. IMPRESSION: 1. Preoperative cardiovascular exam. 2. Acute gallstone pancreatitis. 3. Non-ST elevation myocardial infarction. 4. Hypertension. 5. NSAID ALLERGIES. 6. Sepsis. 7. Lactic acidosis. RECOMMENDATIONS: 1. Conchis Perez presented with what appears to be acute gallstone pancreatitis. She will undergo an MRCP per critical care's recommendations. 2. She did have an elevated troponin, but this is most likely type 2 due to her overall illness from pancreatitis. She had no true chest pain and her EKG shows no significant ST-T wave changes. 3. We will check 2D echo to look at her overall left ventricular function, cardiac structure and possible valvulopathies. 4. Depending on her hospital course, she may eventually need an ischemic evaluation. This may be done inpatient or outpatient, depending on how she progresses. 5. As far as a preoperative cardiovascular exam, she has an elevated risk due to the troponins, but this is felt to be type 2 due to the acute pancreatitis. Overall, she is not a candidate for an ischemic evaluation at this time as I believe that ERCP is urgent and could not be put off. I would also now be able to place her on high doses of heparin, dual antiplatelet therapy, or possible IIb/IIIa inhibitors. 6. Case was discussed with Dr. Orozco, that from my standpoint, she has an elevated risk, but needs to proceed and nothing else can be done from my standpoint at this time to decrease her risk. Thank you for allowing me to see Conchis Perez. If there are any questions, please do not hesitate to call. Sedrick Senior, DO P/ , 03:10 PM , 03:23 PM
--- NOTE | 2018-03-04 15:41 | MR ---
EXAM DATE: 03/04/2018 12:43 PM EDT AGE/SEX: 72 years / Female INDICATIONS: Abdominal pain. Elevated LFTs. CLINICAL DATA: This is the patient's initial encounter. Patient reports that signs and symptoms have been present for 3 days and indicates a pain score of 2/10. MEDICAL/SURGICAL HISTORY: Hypertension. Gastroesophageal reflux disease. Tubal ligation. Knee surgery. Breast lump removal. COMPARISON: [facility], CT ABDOMEN & PELVIS W CONTRAST, 03/03/2018. [facility], US ABDOMEN COMPLETE, 02/07/2016 . . TECHNIQUE: Multiplanar, multisequence images of the abdomen were obtained without contrast including dedicated cholangiographic images. FINDINGS: Liver: The liver measures 15.8 cm in length. There is moderate to severe diffuse signal loss on out of phase imaging indicating steatosis. No focal liver lesion is identified on this noncontrast examin ation. Intrahepatic Bile Ducts: There is mild dilatation of the central intrahepatic bile ducts. Common Bile Duct: The common bile duct is abnormally dilated measuring approximately 9 mm distally n ear the ampulla. The common hepatic duct measures 13 mm. There is no common duct stricture. Dilatatio n extends to the level of the ampulla and there is a questionable 3 mm filling defect at the level of the ampulla. Gallbladder: Gallbladder is distended and contains 3 small stones measuring approximately 3 mm each. There is no wall thickening or pericholecystic fluid. Pancreas: Pancreas signal intensity is within normal limits without mass. However, there is a mild d egree of peripancreatic edema that was not appreciated on the prior CT. Main pancreatic duct is a nor mal in size measuring 2 mm throughout but there is focal mild dilatation near the level of the ampull a where it measures up to 6 mm in the region of the conjoined duct. Other: There is a small 2 cm diverticulum arising from the medial wall of the second portion of the d uodenum. It is located immediately posterior to the distal common duct. There may be a mild degree of edema in the adjacent fat. CONCLUSION: 1. Abnormal extrahepatic bile duct dilatation with questionable 3 mm filling defect suspected to be a stone in the distal common duct at the ampulla. There are 3 small stones also present within the ga llbladder. Consider correlating with ERCP. 2. There is mild peripancreatic edema which was not appreciated on the a prior CT. This may indicate early mild pancreatitis. 3. There is a small 2 cm diverticulum arising from the medial wall of the second portion of the duod enum posterior to the distal common duct. There is also a mild degree of edema adjacent to this struc ture which could represent inflammation of this structure or could represent edema secondary to the s uspected pancreatitis. 4. Moderate to severe hepatic steatosis. Electronically signed by: Dagoberto Dsouza MD 03/04/2018 3:40 PM EDT
--- NOTE | 2018-03-04 19:31 | ECG ---
Date Performed: 03/03/2018 Time Performed: 19:32:42 PTAGE: 72 years EKG: Sinus rhythm POSSIBLE ANTERIOR MYOCARDIAL INFARCTION BORDERLINE ECG NO PREVIOUS TRACING DOCTOR: Sedrick Senior Interpretating Date/Time 03/04/2018 19:30:35
[2018-03-04] MEDS: Enoxaparin Inj 40 MG/0.4 ML Syringe SQ SCH (20:50)
[2018-03-04 23:33] LABS: Albumin 2.4 g/dL (3.4-5.0); Anion Gap 10 meq/L (5-15); Aspartate Aminotransferase 234 U/L (15-37); Blood Urea Nitrogen 17 mg/dL (7-18); Calcium 8.5 mg/dL (8.5-10.1); Carbon Dioxide 23.8 meq/L (21.0-32.0); Chloride 105 meq/L (98-107); Glucose,Random 145 mg/dL (74-106); Magnesium 2.2 mg/dL (1.5-2.5); Potassium 3.6 meq/L (3.5-5.1); Sodium 139 meq/L (136-145)
[2018-03-04 23:34] LABS: Alanine Aminotransferase 313 U/L (10-53); Phosphorus 2.5 mg/dL (2.5-4.9)
[2018-03-04 23:36] LABS: Alkaline Phosphatase 283 U/L (45-117); Lipase 5071 U/L (73-393)
[2018-03-05] MEDS: Piperacil/Tazo 4.5 GM Premix 4.5 GM/100 ML BAG IV.SIG SCH ×4 (01:40→21:42)
[2018-03-05] MEDS: Metoprolol Inj 5 MG/5 ML Vial IV.PUSH SCH ×5 (03:05→21:43)
[2018-03-05] MEDS: Chlorhexidine Gluconate 2% 1 Pack (2 Cloths) TOPICAL SCH (04:10)
[2018-03-05] MEDS: Sod Chloride 0.9% Inj 1,000 ML IV.CONT SCH ×2 (04:11→15:30)
[2018-03-05] MEDS ORDERED: niCARdipine Inj 25 MG in Sodium Chlor 0.9% Inj 250 ML IV.CONT PRN (04:40)
[2018-03-05 06:17] LABS: Baso % (Auto) 0.5 % (0.0-2.0); Eos # (Auto) 0.1 th/mm3 (0.0-0.4); Eos % (Auto) 1.5 % (0.0-4.0); Hematocrit 38.4 % (35.0-46.0); Hemoglobin 12.9 gm/dL (11.6-15.3); Mean Corpuscular HGB Conc 33.6 % (32.0-36.0); Mean Corpuscular Hemoglobin 30.5 pg (27.0-34.0); Mean Corpuscular Volume 90.7 fL (80.0-100.0); Mean Platelet Volume 8.1 fL (7.0-11.0); Mono # (Auto) 0.6 th/mm3 (0.0-0.9); Neut # (Auto) 5.8 th/mm3 (1.8-7.7); Platelet Count 180 th/mm3 (150-450); Red Blood Count 4.23 mil/mm3 (4.00-5.30); Red Cell Distribution Width 14.4 % (11.6-17.2); White Blood Count 7.5 th/mm3 (4.0-11.0)
[2018-03-05 06:40] LABS: Phosphorus 2.4 mg/dL (2.5-4.9)
[2018-03-05] MEDS: Senna/Docusate Sodium 8.6/50 MG Tablet PO SCH ×2 (09:05→21:42)
[2018-03-05] MEDS: Famotidine PF Inj 20 MG/2 ML Vial IV.PUSH SCH ×2 (09:05→21:42)
--- NOTE | 2018-03-05 09:57 | P.PNCC ---
Subjective Subjective Remarks/Hospital Course: Patient is a 72-year-old obese female with past medical history only significant for hypertension, and GI bleed from peptic ulcer, who presented to the emergency department at [facility] for epigastric pain radiating to the right lower quadrant and to the back. Some associated nausea without vomiting. Patient has no history of any abdominal surgeries or pancreatitis in the past. Lab work showed 13,000 white blood cell count with left shift 13% bands, lactic acid 2.1, BUN 38 creatinine 0.93 AST 315, ALT 442, bilirubin 6.2 and also lipase 18,749. Patient had also troponin elevation to 2.2 without chest pain or EKG changes. GI was consulted by ER and Dr. Deng from cardiology also consulted. Cardiology recommends against IV heparin at this time. Cannot use aspirin due to NSAID allergy, will start IV metoprolol 2.5 mg every 6 hours. GI requested transfer to [facility] for ERCP I examined the patient after she arrived to the ICU. Patient appears dry anxious from pain. She clinically is doing interest and CT of the abdomen pelvis showed common bile duct is dilated down to the ampulla. This may indicate choledocholithiasis versus ampullary carcinoma causing obstruction. Patient will be treated with broad-spectrum antibiotics with Zosyn, give 2 L normal saline bolus and continue maintenance IV fluids. I have requested MRCP 03/05: No events over the night. T-max of 98.6. Urine output is improved with 1400 mL's over the last 24 hours. Patient is resting, easily arousable, still complains of mild abdominal pain but overall improved. No nausea no vomiting. She denies any chest pain, shortness of breath, palpitations. Objective Vital Signs / I&O: Vital Signs 03/04/18 10:00 03/04/18 11:00 03/04/18 12:45 Temperature Pulse Rate 87 87 80 Respiratory Rate 25 H 21 25 H Blood Pressure 155/65 H 158/70 H Pulse Oximetry 96 97 03/04/18 12:46 03/04/18 13:00 03/04/18 13:13 Temperature 98.4 F Pulse Rate 82 81 84 Respiratory Rate 18 19 18 Blood Pressure 143/81 H 167/90 H Pulse Oximetry 03/04/18 14:00 03/04/18 15:00 03/04/18 16:00 Temperature 98.4 F Pulse Rate 83 81 88 Respiratory Rate 18 26 H 26 H Blood Pressure 143/71 H 179/86 H Pulse Oximetry 99 98 03/04/18 17:00 03/04/18 18:00 03/04/18 18:20 Temperature Pulse Rate 78 93 H 85 Respiratory Rate 19 33 H 22 Blood Pressure 183/91 H 205/98 H 196/125 H Pulse Oximetry 99 98 99 03/04/18 19:00 03/04/18 19:24 03/04/18 20:00 Temperature Pulse Rate 84 86 87 Respiratory Rate 23 21 24 Blood Pressure 181/86 H Pulse Oximetry 96 94 L 96 03/04/18 20:01 03/04/18 20:03 03/04/18 20:10 Temperature Pulse Rate 89 87 86 Respiratory Rate 30 H 30 H 20 Blood Pressure 178/76 H 186/118 H 184/80 H Pulse Oximetry 99 98 97 03/04/18 20:48 03/04/18 20:56 03/04/18 21:00 Temperature Pulse Rate 86 76 74 Respiratory Rate 24 23 19 Blood Pressure 171/81 H 158/74 H 153/67 H Pulse Oximetry 98 97 98 03/04/18 21:07 03/04/18 22:00 03/04/18 22:01 Temperature Pulse Rate 77 78 Respiratory Rate 17 18 Blood Pressure 142/67 H Pulse Oximetry 98 98 98 03/04/18 23:00 03/04/18 23:07 03/05/18 00:00 Temperature Pulse Rate 79 82 82 Respiratory Rate 17 22 17 Blood Pressure 126/60 145/68 H Pulse Oximetry 96 95 97 03/05/18 01:00 03/05/18 01:05 03/05/18 01:30 Temperature Pulse Rate 78 80 79 Respiratory Rate 17 16 18 Blood Pressure 188/88 H 155/83 H 165/87 H Pulse Oximetry 98 99 99 03/05/18 02:00 03/05/18 02:22 03/05/18 02:30 Temperature Pulse Rate 84 81 80 Respiratory Rate 23 19 17 Blood Pressure 159/77 H 171/81 H Pulse Oximetry 94 L 92 L 03/05/18 03:00 03/05/18 03:01 03/05/18 03:02 Temperature 97.1 F L Pulse Rate 79 80 79 Respiratory Rate 16 16 16 Blood Pressure 203/97 H 203/97 H 200/98 H Pulse Oximetry 94 L 98 99 08/22/18 03:03 03/05/18 03:07 03/05/18 03:12 Temperature Pulse Rate 78 77 72 Respiratory Rate 20 16 28 H Blood Pressure 196/92 H 188/91 H 196/92 H Pulse Oximetry 100 100 99 03/05/18 03:20 03/05/18 03:30 03/05/18 03:40 Temperature Pulse Rate 74 74 74 Respiratory Rate 20 22 19 Blood Pressure 187/92 H 186/90 H 180/84 H Pulse Oximetry 99 98 98 03/05/18 03:50 03/05/18 03:52 03/05/18 03:53 Temperature Pulse Rate 73 74 76 Respiratory Rate 18 22 18 Blood Pressure 191/85 H 192/86 H 182/87 H Pulse Oximetry 100 100 100 03/05/18 04:00 03/05/18 04:10 03/05/18 04:21 Temperature Pulse Rate 75 83 82 Respiratory Rate 18 36 H 30 H Blood Pressure 183/87 H 187/88 H 205/99 H Pulse Oximetry 99 100 98 03/05/18 04:32 03/05/18 05:00 03/05/18 05:12 Temperature Pulse Rate 81 75 70 Respiratory Rate 34 H 38 H 35 H Blood Pressure 191/82 H 169/87 H Pulse Oximetry 99 100 100 03/05/18 06:00 03/05/18 07:18 03/05/18 08:13 Temperature Pulse Rate 76 Respiratory Rate 18 Blood Pressure 150/80 H Pulse Oximetry 99 100 Intake & Output 03/04/18 03/05/18 03/05/18 18:59 06:59 18:59 Intake Total 1200 / 1200 1200 / 1200 Output Total 950 / 950 450 / 450 Balance 250 / 250 750 / 750 Weight 96.8 kg Intake: IV 1200 / 1200 1200 / 1200 NS Inj 1,000 ML @ 100 mls/hr IV 1000 / 1000 1000 / 1000 .CONT .Q10H MIGUEL Rx#:[id number] Zosyn 4.5 GM Premix 4.5 gm In 200 / 200 200 / 200 100 ml @ 200 mls/hr IV.SIG Q6H MIGUEL Rx#:[id number] Oral 0 / 0 Output: Urine 950 / 950 450 / 450 Result Diagrams: 03/06/18 04:04 03/06/18 04:04 Other Results: Lipase 5071 TG 153 Lactic acid 0.4 Imaging: Abdomen/Pelvis CT 03/03/18 18:42 CONCLUSION: 1. No gallstones seen. The gallbladder is distended and the common bile duct is dilated down to the ampulla. There is also minimal prominence of the intrahepatic biliary ducts and the pancreatic duct. The findings suggest the possibility of obstruction at the level of the ampulla. Recommend direct visualization and possible biopsy with ERCP. 2. A few scattered sigmoid diverticula. 3. Small fat-containing left inguinal hernia. Cholangiopancreatography MRI 03/04/18 00:00 CONCLUSION: 1. Abnormal extrahepatic bile duct dilatation with questionable 3 mm filling defect suspected to be a stone in the distal common duct at the ampulla. There are 3 small stones also present within the gallbladder. Consider correlating with ERCP. 2. There is mild peripancreatic edema which was not appreciated on the a prior CT. This may indicate early mild pancreatitis. 3. There is a small 2 cm diverticulum arising from the medial wall of the second portion of the duodenum posterior to the distal common duct. There is also a mild degree of edema adjacent to this structure which could represent inflammation of this structure or could represent edema secondary to the suspected pancreatitis. 4. Moderate to severe hepatic steatosis. Objective Remarks: General - elderly lady, sleeping, easily arousable, in no distress HEENT - pupils equal, reactive, sclerae icteric, neck supple, no nuchal rigidity , neck veins not distended, no carotid bruit CV - regular S1, S2, systolic ejection murmur at the apex Chest - clear b/l, good air entry, no wheezes Abdomen - soft, mildly tender to deep palpation, obese, BS decreased, no guarding, no rebound tenderness, no hepatomegaly, no splenomegaly Skin - no rashes, no cyanosis Extremities - warm and well perfused, no edema, + peripheral pulses, no clubbing Neuro - awake, alert, oriented, moves all extremities Assessment and Plan - Problem List (1) Acute pancreatitis Code(s): K85.90 - Acute pancreatitis without necrosis or infection, unspecified Status: Acute (2) Severe sepsis Code(s): A41.9 - Sepsis, unspecified organism; R65.20 - Severe sepsis without septic shock Status: Acute (3) Acute kidney insufficiency Code(s): N28.9 - Disorder of kidney and ureter, unspecified Status: Acute (4) Lactic acidosis Code(s): E87.2 - Acidosis Status: Acute (5) Non-ST elevation NM (NSTEMI) Code(s): I21.4 - Non-ST elevation (NSTEMI) myocardial infarction Status: Acute (6) Common bile duct dilatation Code(s): K83.8 - Other specified diseases of biliary tract Status: Acute (7) Jaundice Code(s): R17 - Unspecified jaundice Status: Acute - Assessment and Plan Plan: 1. Acute pancreatitis -secondary to gallstone, lipase remains elevated but is trending down 2. Possible cholangitis 3. Severe sepsis -improved 4. Lactic acidosis -resolved 5. Non-STEMI -troponin trending down 6. BRIA -urine output is improved 1. Patient is scheduled to undergo ERCP this morning 2. Morning electrolytes are still pending 3. Continue empiric Zosyn for now 4. N.p.o. until postprocedure 5. Continue IV hydration 6. Continue IV metoprolol. No aspirin due to allergy 7. Followed by cardiology 8. Echocardiogram is pending 9. Serial lipase 10. Monitor urine output 11. Pain control with IV morphine 12. GI prophylaxis with pantoprazole 13. DVT prophylaxis with SCDs and Lovenox No family is present at bedside. I discussed with patient's daughter her mother 's condition at bedside yesterday.
[2018-03-05] MEDS: Morphine Inj 4 MG/ML Vial IV.PUSH PRN ×2 (11:02→17:02)
[2018-03-05] MEDS ORDERED: Succinylcholine Inj 100 MG/5 ML Syringe IV.PUSH ONE (12:00)
[2018-03-05] MEDS ORDERED: Lidocaine PF 1% Inj 5 ML Syringe INFILTRATN ONE (12:00)
[2018-03-05] MEDS ORDERED: Labetalol HCl Inj 100 MG/20 ML Vial IV.CONT ONE (12:00)
[2018-03-05] MEDS: Labetalol HCl Inj 100 MG/20 ML Vial IV.PUSH PRN ×2 (13:02→17:53)
[2018-03-05] MEDS ORDERED: RESP: Albuterol Concentrated 2.5 MG/0.5 ML Neb ONE (19:20)
[2018-03-05] MEDS ORDERED: Sugammadex Inj 200 MG/2 ML Vial IV.PUSH ONE (19:41)
[2018-03-05] MEDS ORDERED: fentaNYL Citrate Inj 100 MCG/2 ML Ampul ONE (19:41)
--- NOTE | 2018-03-05 20:51 | FL ---
EXAM DATE: 03/05/2018 8:33 PM EDT AGE/SEX: 72 years / Female INDICATIONS: ERCP CLINICAL DATA: This is the patient's subsequent encounter. Patient reports that signs and symptoms h ave been present for 2 days and indicates a pain score of Nonresponsive. MEDICAL/SURGICAL HISTORY: Gastroesophageal reflux disease. Hypertension. None. COMPARISON: No prior exams available for comparison. FINDINGS: An ERCP was performed by the ordering physician. The images demonstrate contrast in the common bile duct, intrahepatic biliary system and in the gallbladder. CONCLUSION: ERCP images. Electronically signed by: Kapil Flynn MD 03/05/2018 8:50 PM EDT
[2018-03-05] MEDS: Enoxaparin Inj 40 MG/0.4 ML Syringe SQ SCH (21:42)
--- NOTE | 2018-03-05 22:13 | P.PCN ---
Date of procedure: 03/05/18 Pre-op diagnosis: Choledocholithiasis, acute pancreatitis Procedure: PROCEDURE PERFORMED ERCP with sphincterotomy and balloon extraction INDICATION FOR PROCEDURE Acute pancreatitis, choledocholithiasis, elevated liver function tests PROCEDURE: The procedure, risks and benefits were discussed with Patient/POA and informed consent was obtained. Anesthesia sedated Patient with Diprivan. Patient was placed in the left lateral decubitus position. ERCP: Patient was placed in a prone position. The Pentax videoscope was introduced through the oropharynx and advanced to the second portion of the duodenum where the ampula was identified. FINDINGS: The ampulla this appeared to be unremarkable but situated at the edge of a diverticulum cannulation was somewhat difficult a needle-knife precut was performed initial cannulation with the wire was that of the pancreatic duct no contrast was injected after several attempts we were able to cannulate the common bile duct at that point the sphincterotomy was extended and deep cannulation was obtained the common bile duct appeared to be mildly dilated to about a centimeter with no obvious filling defects using a 12 mm balloon we were able to sweep through the bile duct no stones were noted the gallbladder filled partially with no obvious filling defects and the intrahepatics appeared to be unremarkable ESTIMATED BLOOD LOSS: Minimal SPECIMENS REMOVED: None COMPLICATIONS: None IMPRESSION: Duodenal diverticulum Mildly dilated common bile duct PLAN: Patient probably passed a stone Continue with current supportive care Monitor labs Anesthesia: GETA Surgeon: Evan Vo Condition: stable Disposition: no change
--- NOTE | 2018-03-05 22:24 | P.PNCA ---
Subjective Interval history: No events overnight Sleeping comfortably, NPO for ERCP Physical Exam Vital signs: Vital Signs 03/04/18 23:00 03/04/18 23:07 03/05/18 00:00 Temperature Pulse Rate 79 82 82 Respiratory Rate 17 22 17 Blood Pressure 126/60 145/68 H Pulse Oximetry 96 95 97 03/05/18 01:00 03/05/18 01:05 03/05/18 01:30 Temperature Pulse Rate 78 80 79 Respiratory Rate 17 16 18 Blood Pressure 188/88 H 155/83 H 165/87 H Pulse Oximetry 98 99 99 03/05/18 02:00 03/05/18 02:22 03/05/18 02:30 Temperature Pulse Rate 84 81 80 Respiratory Rate 23 19 17 Blood Pressure 159/77 H 171/81 H Pulse Oximetry 94 L 92 L 03/05/18 03:00 03/05/18 03:01 03/05/18 03:02 Temperature 97.1 F L Pulse Rate 79 80 79 Respiratory Rate 16 16 16 Blood Pressure 203/97 H 203/97 H 200/98 H Pulse Oximetry 94 L 98 99 03/05/18 03:03 03/05/18 03:07 03/05/18 03:12 Temperature Pulse Rate 78 77 72 Respiratory Rate 20 16 28 H Blood Pressure 196/92 H 188/91 H 196/92 H Pulse Oximetry 100 100 99 03/05/18 03:20 03/05/18 03:30 03/05/18 03:40 Temperature Pulse Rate 74 74 74 Respiratory Rate 20 22 19 Blood Pressure 187/92 H 186/90 H 180/84 H Pulse Oximetry 99 98 98 03/05/18 03:50 03/05/18 03:52 03/05/18 03:53 Temperature Pulse Rate 73 74 76 Respiratory Rate 18 22 18 Blood Pressure 191/85 H 192/86 H 182/87 H Pulse Oximetry 100 100 100 03/05/18 04:00 03/05/18 04:10 03/05/18 04:21 Temperature Pulse Rate 75 83 82 Respiratory Rate 18 36 H 30 H Blood Pressure 183/87 H 187/88 H 205/99 H Pulse Oximetry 99 100 98 03/05/18 04:32 03/05/18 05:00 03/05/18 05:12 Temperature Pulse Rate 81 75 70 Respiratory Rate 34 H 38 H 35 H Blood Pressure 191/82 H 169/87 H Pulse Oximetry 99 100 100 03/05/18 06:00 03/05/18 07:18 03/05/18 08:00 Temperature 98.5 F Pulse Rate 76 74 Respiratory Rate 18 19 Blood Pressure 150/80 H 168/78 H Pulse Oximetry 99 98 03/05/18 08:13 03/05/18 09:00 03/05/18 10:00 Temperature 98.5 F Pulse Rate 88 76 Respiratory Rate 38 H 25 H Blood Pressure 155/69 H 165/81 H Pulse Oximetry 100 93 L 03/05/18 11:00 03/05/18 11:19 03/05/18 12:00 Temperature 98.4 F 98.5 F Pulse Rate 80 71 Respiratory Rate 28 H 20 22 Blood Pressure 171/74 H 188/90 H Pulse Oximetry 98 98 03/05/18 13:00 03/05/18 14:00 03/05/18 15:02 Temperature 98.5 F 98.3 F Pulse Rate 72 69 69 Respiratory Rate 35 H 23 22 Blood Pressure 163/64 H 158/68 H 167/74 H Pulse Oximetry 99 99 98 03/05/18 16:44 03/05/18 17:12 03/05/18 18:00 Temperature 97.8 F 98.5 F Pulse Rate 71 66 Respiratory Rate 18 22 18 Blood Pressure 154/80 H 153/55 H Pulse Oximetry 98 98 03/05/18 20:15 03/05/18 20:30 03/05/18 20:45 Temperature 97.4 F L 97.5 F L 97.5 F L Pulse Rate 67 69 68 Respiratory Rate 14 14 14 Blood Pressure 167/79 H 160/72 H 153/68 H Pulse Oximetry 95 89 L 93 L Intake & Output 03/05/18 03/05/18 03/06/18 06:59 18:59 06:59 Intake Total 1200 / 1200 1100 / 1100 1999 Output Total 450 / 450 620 / 620 Balance 750 / 750 480 / 480 1999 Weight 96.8 kg Intake: IV 1200 / 1200 1100 / 1100 1000 / 1000 NS Inj 1,000 ML @ 100 mls/hr IV 1000 / 1000 1000 / 1000 1000 / 1000 .CONT .Q10H [facility] Rx#:[id number] Zosyn 4.5 GM Premix 4.5 gm In 200 / 200 100 / 100 100 ml @ 200 mls/hr IV.SIG Q6H [facility] Rx#:[id number] Oral 0 / 0 0 / 0 Anesthesia Amount 1000 / 1000 Output: Urine 450 / 450 620 / 620 Other: # Voids 3 # Bowel Movements 0 Narrative: GENERAL: NAD, AAOx3 SKIN: Warm and dry. HEAD: Atraumatic. Normocephalic. EYES: Pupils equal and round. No scleral icterus. No injection or drainage. ENT: No nasal bleeding or discharge. Mucous membranes pink and moist. NECK: Trachea midline. No JVD. CARDIOVASCULAR: Regular rate and rhythm. RESPIRATORY: No accessory muscle use. Clear to auscultation. Breath sounds equal bilaterally. GASTROINTESTINAL: Abdomen soft, mildly tender, nondistended. Hepatic and splenic margins not palpable. MUSCULOSKELETAL: Extremities without clubbing, cyanosis, or edema. No obvious deformities. NEUROLOGICAL: Awake and alert. No obvious cranial nerve deficits. Motor grossly within normal limits. Five out of 5 muscle strength in the arms and legs. Normal speech. PSYCHIATRIC: Appropriate mood and affect; insight and judgment normal. Assessment and Plan - Assessment (1) Pancreatitis Code(s): K85.90 - Acute pancreatitis without necrosis or infection, unspecified Status: Acute (2) Obstruction of gallbladder Code(s): K82.0 - Obstruction of gallbladder Status: Acute (3) Elevated troponin I level Code(s): R74.8 - Abnormal levels of other serum enzymes Status: Acute (4) Non-ST elevation [place] (NSTEMI) Code(s): I21.4 - Non-ST elevation (NSTEMI) myocardial infarction Status: Acute (5) Acute pancreatitis Code(s): K85.90 - Acute pancreatitis without necrosis or infection, unspecified Status: Acute (6) Severe sepsis Code(s): A41.9 - Sepsis, unspecified organism; R65.20 - Severe sepsis without septic shock Status: Acute (7) Acute kidney insufficiency Code(s): N28.9 - Disorder of kidney and ureter, unspecified Status: Acute (8) Lactic acidosis Code(s): E87.2 - Acidosis Status: Acute (9) Common bile duct dilatation Code(s): K83.8 - Other specified diseases of biliary tract Status: Acute (10) Jaundice Code(s): R17 - Unspecified jaundice Status: Acute - Plan 1) Acute gallstone pancreatitis Plan for ERCP per GI 2) Elevated trop Most likely Type 2 due to overall illness Eventually needs ischemic evaluation, whether inpt or outpt depending on hospital course 3) 2D echo pending 4) Pre-op CV exam Elevated due to troponins, but felt to be Type 2 in nature May proceed with ERCP from cardiovascular standpoint (1) Pancreatitis Qualifiers: Chronicity: acute Pancreatitis type: biliary Acute pancreatitis complication : unspecified Qualified Code(s): K85.10 - Biliary acute pancreatitis without necrosis or infection
[2018-03-06] MEDS: Piperacil/Tazo 4.5 GM Premix 4.5 GM/100 ML BAG IV.SIG SCH ×4 (01:30→20:48)
[2018-03-06] MEDS: Labetalol HCl Inj 100 MG/20 ML Vial IV.PUSH PRN ×4 (02:04→18:27)
[2018-03-06] MEDS: Chlorhexidine Gluconate 2% 1 Pack (2 Cloths) TOPICAL SCH (05:02)
[2018-03-06] MEDS: Metoprolol Inj 5 MG/5 ML Vial IV.PUSH SCH (05:02)
[2018-03-06 05:21] LABS: Baso % (Auto) 0.2 % (0.0-2.0); Hematocrit 34.3 % (35.0-46.0); Hemoglobin 11.6 gm/dL (11.6-15.3); Lymph # (Auto) 0.6 th/mm3 (1.0-4.8); Lymph % (Auto) 6.4 % (9.0-44.0); Mean Corpuscular HGB Conc 33.8 % (32.0-36.0); Mean Corpuscular Hemoglobin 30.7 pg (27.0-34.0); Mean Corpuscular Volume 90.8 fL (80.0-100.0); Mean Platelet Volume 8.1 fL (7.0-11.0); Mono # (Auto) 0.4 th/mm3 (0.0-0.9); Mono % (Auto) 3.9 % (0.0-8.0); Neut # (Auto) 8.6 th/mm3 (1.8-7.7); Neut % (Auto) 89.5 % (16.0-70.0); Platelet Count 192 th/mm3 (150-450); Red Blood Count 3.77 mil/mm3 (4.00-5.30); Red Cell Distribution Width 14.8 % (11.6-17.2); White Blood Count 9.6 th/mm3 (4.0-11.0)
[2018-03-06 05:39] LABS: Alanine Aminotransferase 224 U/L (10-53); Albumin 2.3 g/dL (3.4-5.0); Anion Gap 9 meq/L (5-15); Aspartate Aminotransferase 113 U/L (15-37); Blood Urea Nitrogen 12 mg/dL (7-18); Calcium 8.1 mg/dL (8.5-10.1); Chloride 105 meq/L (98-107); Glomerular Filtration Rate Greater Than 89 mL/min (>89); Glucose,Random 147 mg/dL (74-106); Lipase 466 U/L (73-393); Magnesium 2.1 mg/dL (1.5-2.5); Phosphorus 2.1 mg/dL (2.5-4.9); Potassium 3.5 meq/L (3.5-5.1); Sodium 140 meq/L (136-145)
[2018-03-06 05:43] LABS: Alkaline Phosphatase 250 U/L (45-117); Total Protein 6.9 g/dL (6.4-8.2)
[2018-03-06] MEDS ORDERED: Potassium Phosphate Inj 15 MMOL in Sodium Chlor 0.9% Inj 150 ML IV.SIG ONE (06:56)
--- NOTE | 2018-03-06 08:14 | P.PNCC ---
Subjective Subjective Remarks/Hospital Course: Patient is a 72-year-old obese female with past medical history only significant for hypertension, and GI bleed from peptic ulcer, who presented to the emergency department at [facility] for epigastric pain radiating to the right lower quadrant and to the back. Some associated nausea without vomiting. Patient has no history of any abdominal surgeries or pancreatitis in the past. Lab work showed 13,000 white blood cell count with left shift 13% bands, lactic acid 2.1, BUN 38 creatinine 0.93 AST 315, ALT 442, bilirubin 6.2 and also lipase 18,749. Patient had also troponin elevation to 2.2 without chest pain or EKG changes. GI was consulted by ER and Dr. Deng from cardiology also consulted. Cardiology recommends against IV heparin at this time. Cannot use aspirin due to NSAID allergy, will start IV metoprolol 2.5 mg every 6 hours. GI requested transfer to [facility] for ERCP I examined the patient after she arrived to the ICU. Patient appears dry anxious from pain. She clinically is doing interest and CT of the abdomen pelvis showed common bile duct is dilated down to the ampulla. This may indicate choledocholithiasis versus ampullary carcinoma causing obstruction. Patient will be treated with broad-spectrum antibiotics with Zosyn, give 2 L normal saline bolus and continue maintenance IV fluids. I have requested MRCP 03/05: No events over the night. T-max of 98.6. Urine output is improved with 1400 mL's over the last 24 hours. Patient is resting, easily arousable, still complains of mild abdominal pain but overall improved. No nausea no vomiting. She denies any chest pain, shortness of breath, palpitations. 03/06: Patient underwent ERCP last evening, report reviewed. Patient continues to slowly improve, abdominal pain is improved. Denies any nausea, vomiting, chest pain, palpitations. She is complaining of a headache. No dyspnea. T- max of 98.7. She says that her urine output is improved. Objective Vital Signs / I&O: Vital Signs 03/05/18 08:13 03/05/18 09:00 03/05/18 10:00 Temperature 98.5 F Pulse Rate 88 76 Respiratory Rate 38 H 25 H Blood Pressure 155/69 H 165/81 H Pulse Oximetry 100 93 L 03/05/18 11:00 03/05/18 11:19 03/05/18 12:00 Temperature 98.4 F 98.5 F Pulse Rate 80 71 Respiratory Rate 28 H 20 22 Blood Pressure 171/74 H 188/90 H Pulse Oximetry 98 98 03/05/18 13:00 03/05/18 14:00 03/05/18 15:02 Temperature 98.5 F 98.3 F Pulse Rate 72 69 69 Respiratory Rate 35 H 23 22 Blood Pressure 163/64 H 158/68 H 167/74 H Pulse Oximetry 99 99 98 03/05/18 16:44 03/05/18 17:12 03/05/18 18:00 Temperature 97.8 F 98.5 F Pulse Rate 71 66 Respiratory Rate 18 22 18 Blood Pressure 154/80 H 153/55 H Pulse Oximetry 98 98 03/05/18 20:00 03/05/18 20:15 03/05/18 20:30 Temperature 97.4 F L 97.5 F L Pulse Rate 68 67 69 Respiratory Rate 14 14 Blood Pressure 167/79 H 160/72 H Pulse Oximetry 95 89 L 03/05/18 20:45 03/05/18 21:06 03/05/18 22:00 Temperature 97.5 F L 98.3 F Pulse Rate 68 68 Respiratory Rate 14 16 Blood Pressure 153/68 H 173/77 H Pulse Oximetry 93 L 98 97 03/05/18 23:00 03/06/18 00:00 03/06/18 00:45 Temperature 98.4 F Pulse Rate 66 68 Respiratory Rate 20 19 Blood Pressure 169/76 H 162/74 H Pulse Oximetry 99 98 96 03/06/18 01:00 03/06/18 02:00 03/06/18 03:00 Temperature Pulse Rate 69 70 65 Respiratory Rate 30 H 24 22 Blood Pressure 172/79 H 180/84 H 170/78 H Pulse Oximetry 99 98 96 03/06/18 04:00 03/06/18 05:00 03/06/18 05:17 Temperature 98.7 F Pulse Rate 66 53 L Respiratory Rate 18 20 Blood Pressure 168/81 H 183/80 H Pulse Oximetry 97 99 96 03/06/18 06:00 Temperature Pulse Rate 66 Respiratory Rate 23 Blood Pressure 171/81 H Pulse Oximetry 99 Intake & Output 03/05/18 03/06/18 03/06/18 18:59 06:59 18:59 Intake Total 1100 / 1100 3440 / 3440 Output Total 620 / 620 450 / 450 Balance 480 / 480 2990 / 2990 Weight 106 kg Intake: IV 1100 / 1100 2200 / 2200 LR 1000 mL Inj 1,000 ML @ 100 1000 / 1000 mls/hr IV.CONT .Q10H [facility] Rx#: [id number] Inj 1,000 ML @ 100 mls/hr IV 1000 / 1000 1000 / 1000 .CONT .Q10H [facility] Rx#:[id number] Zosyn 4.5 GM Premix 4.5 gm In 100 / 100 200 / 200 100 ml @ 200 mls/hr IV.SIG Q6H [facility] Rx#:[id number] Oral 0 / 0 240 / 240 Anesthesia Amount 1000 / 1000 Output: Urine 620 / 620 450 / 450 Other: # Voids 3 # Bowel Movements 0 0 Result Diagrams: 03/06/18 04:04 03/06/18 04:04 Objective Remarks: General - elderly lady, awake, in no distress HEENT - pupils are equal, reactive, sclerae are anicteric, neck is supple, no rigidity, no JVD, MMM CV - regular heart sounds, systolic ejection murmur at the apex Chest - clear b/l, good air entry, no wheezes Abdomen - soft, nontender, obese, BS decreased, no guarding, no rebound tenderness Extremities - warm, no edema, + peripheral pulses, no clubbing Neuro - awake, alert, oriented, moves all extremities Assessment and Plan - Problem List (1) Acute pancreatitis Code(s): K85.90 - Acute pancreatitis without necrosis or infection, unspecified Status: Acute (2) Severe sepsis Code(s): A41.9 - Sepsis, unspecified organism; R65.20 - Severe sepsis without septic shock Status: Acute (3) Acute kidney insufficiency Code(s): N28.9 - Disorder of kidney and ureter, unspecified Status: Acute (4) Lactic acidosis Code(s): E87.2 - Acidosis Status: Acute (5) Non-ST elevation [place] (NSTEMI) Code(s): I21.4 - Non-ST elevation (NSTEMI) myocardial infarction Status: Acute (6) Common bile duct dilatation Code(s): K83.8 - Other specified diseases of biliary tract Status: Acute (7) Jaundice Code(s): R17 - Unspecified jaundice Status: Acute - Assessment and Plan Plan: 1. Acute pancreatitis -secondary to gallstone, post ERCP yesterday evening, no stones found, likely passed it. Patient continues to improve and lipase is trending down 2. Possible cholangitis -no evidence found on ERCP 3. Severe sepsis -resolved 4. Lactic acidosis -resolved 5. Non-STEMI -troponin trending down, followed by cardiology 6. BRIA -creatinine normalized 7. Hypertension -still uncontrolled at times 1. Advance diet as tolerated if okay with GI 2. Replete phosphorus 3. Stop Zosyn after today's dose since no clear evidence of infection 4. Decrease IV hydration to 50 mL's per hour and stop if patient takes adequate p.o. 5. Change IV metoprolol to p.o. metoprolol 6. No aspirin due to allergy 7. Echocardiogram is pending 8. Follow-up lipase and total bili 9. GI prophylaxis with pantoprazole 10. DVT prophylaxis with SCDs and Lovenox No family is present at bedside this a.m. I extensively discussed with patient' s daughter her mother's condition at bedside yesterday. We will transition care to hospitalist service. Please call back with any questions or if additional help is needed.
[2018-03-06] MEDS ORDERED: Acetaminophen 500 MG Tablet PO ONE (08:43)
[2018-03-06] MEDS: Morphine Inj 4 MG/ML Vial IV.PUSH PRN (08:53)
[2018-03-06] MEDS: Senna/Docusate Sodium 8.6/50 MG Tablet PO SCH ×2 (08:54→20:51)
[2018-03-06] MEDS: Metoprolol Tartrate 25 MG Tablet PO SCH ×2 (08:54→20:49)
[2018-03-06] MEDS: Famotidine PF Inj 20 MG/2 ML Vial IV.PUSH SCH ×2 (08:55→20:49)
--- NOTE | 2018-03-06 11:58 | ECHRPT ---
Indication: CORONARY ATHEROSCLEROSIS CONCLUSIONS The left ventricular systolic function is hyperdynamic with an estimated ejection fraction in the ra nge of 65- 70%. Normal left ventricular size. Wall thickness is normal. No regional wall motion abnormalities are present. The left atrial size is mildly dilated. Moderate mitral valve regurgitation. Aortic valve sclerosis is present. Moderate aortic valve regurgitation. There is trace tricuspid valve regurgitation. The estimated pulmonary arterial pressure is 24 mmHg. The pulmonary valve is not well visualized. BP: / HR: Rhythm: Sinus Technical Quality:Fair FINDINGS LEFT VENTRICLE The left ventricular systolic function is hyperdynamic with an estimated ejection fraction in the ra nge of 65- 70%. Normal left ventricular size. Wall thickness is normal. No regional wall motion abnormalities are present. RIGHT VENTRICLE Normal right ventricular size and systolic function. LEFT ATRIUM The left atrial size is mildly dilated. RIGHT ATRIUM The right atrial size is normal. ATRIAL SEPTUM Normal atrial septal thickness without atrial level shunting by limited color doppler interrogation. AORTA The aortic root and proximal ascending aorta are normal in size on limited imaging. MITRAL VALVE Structurally normal mitral valve. Moderate mitral valve regurgitation. AORTIC VALVE Trileaflet aortic valve. Aortic valve sclerosis is present. Moderate aortic valve regurgitation. TRICUSPID VALVE Structurally normal tricuspid valve. There is trace tricuspid valve regurgitation. The estimated pulmonary arterial pressure is 24 mmHg. PULMONARY VALVE The pulmonary valve is not well visualized. VESSELS The inferior vena cava is normal in size. PERICARDIUM No pericardial effusion. Golden Blake MD, FACC (Electronically Signed) Final Date:06 March 2018 11:57
--- NOTE | 2018-03-06 12:18 | P.PNCA ---
Subjective Interval history: ERCP last night, appears she passed the stone Abdominal pain down from yesterday No chest pain Physical Exam Vital signs: Vital Signs 03/05/18 13:00 03/05/18 14:00 03/05/18 15:02 Temperature 98.5 F 98.3 F Pulse Rate 72 69 69 Respiratory Rate 35 H 23 22 Blood Pressure 163/64 H 158/68 H 167/74 H Pulse Oximetry 99 99 98 03/05/18 16:44 03/05/18 17:12 03/05/18 18:00 Temperature 97.8 F 98.5 F Pulse Rate 71 66 Respiratory Rate 18 22 18 Blood Pressure 154/80 H 153/55 H Pulse Oximetry 98 98 03/05/18 20:00 03/05/18 20:15 03/05/18 20:30 Temperature 97.4 F L 97.5 F L Pulse Rate 68 67 69 Respiratory Rate 14 14 Blood Pressure 167/79 H 160/72 H Pulse Oximetry 95 89 L 03/05/18 20:45 03/05/18 21:06 03/05/18 22:00 Temperature 97.5 F L 98.3 F Pulse Rate 68 68 Respiratory Rate 14 16 Blood Pressure 153/68 H 173/77 H Pulse Oximetry 93 L 98 97 03/05/18 23:00 03/06/18 00:00 03/06/18 00:45 Temperature 98.4 F Pulse Rate 66 68 Respiratory Rate 20 19 Blood Pressure 169/76 H 162/74 H Pulse Oximetry 99 98 96 03/06/18 01:00 03/06/18 02:00 03/06/18 03:00 Temperature Pulse Rate 69 70 65 Respiratory Rate 30 H 24 22 Blood Pressure 172/79 H 180/84 H 170/78 H Pulse Oximetry 99 98 96 03/06/18 04:00 03/06/18 05:00 03/06/18 05:17 Temperature 98.7 F Pulse Rate 66 53 L Respiratory Rate 18 20 Blood Pressure 168/81 H 183/80 H Pulse Oximetry 97 99 96 03/06/18 06:00 03/06/18 07:00 03/06/18 08:00 Temperature 98.4 F Pulse Rate 66 56 L 66 Respiratory Rate 23 19 20 Blood Pressure 171/81 H 186/85 H 175/80 H Pulse Oximetry 99 98 98 03/06/18 09:00 03/06/18 09:19 08/23/18 10:00 Temperature Pulse Rate 66 69 Respiratory Rate 22 26 H Blood Pressure 176/81 H 167/78 H Pulse Oximetry 98 94 L 95 03/06/18 11:00 03/06/18 11:23 Temperature 98.4 F Pulse Rate 64 Respiratory Rate 24 26 H Blood Pressure 161/73 H Pulse Oximetry 96 Intake & Output 03/05/18 03/06/18 03/06/18 18:59 06:59 18:59 Intake Total 1100 / 1100 3440 / 3440 Output Total 620 / 620 450 / 450 Balance 480 / 480 2990 / 2990 Weight 106 kg Intake: IV 1100 / 1100 2200 / 2200 LR 1000 mL Inj 1,000 ML @ 100 1000 / 1000 mls/hr IV.CONT .Q10H [facility] Rx#: [id number] Inj 1,000 ML @ 100 mls/hr IV 1000 / 1000 1000 / 1000 .CONT .Q10H [facility] Rx#:[id number] Zosyn 4.5 GM Premix 4.5 gm In 100 / 100 200 / 200 100 ml @ 200 mls/hr IV.SIG Q6H [facility] Rx#:[id number] Oral 0 / 0 240 / 240 Anesthesia Amount 1000 / 1000 Output: Urine 620 / 620 450 / 450 Other: # Voids 3 # Bowel Movements 0 0 Narrative: GENERAL: NAD, AAOx3 SKIN: Warm and dry. HEAD: Atraumatic. Normocephalic. EYES: Pupils equal and round. No scleral icterus. No injection or drainage. ENT: No nasal bleeding or discharge. Mucous membranes pink and moist. NECK: Trachea midline. No JVD. CARDIOVASCULAR: Regular rate and rhythm. RESPIRATORY: No accessory muscle use. Clear to auscultation. Breath sounds equal bilaterally. GASTROINTESTINAL: Abdomen soft, mildly tender, nondistended. Hepatic and splenic margins not palpable. MUSCULOSKELETAL: Extremities without clubbing, cyanosis, or edema. No obvious deformities. NEUROLOGICAL: Awake and alert. No obvious cranial nerve deficits. Motor grossly within normal limits. Five out of 5 muscle strength in the arms and legs. Normal speech. PSYCHIATRIC: Appropriate mood and affect; insight and judgment normal. Assessment and Plan - Assessment (1) Pancreatitis Code(s): K85.90 - Acute pancreatitis without necrosis or infection, unspecified Status: Acute (2) Obstruction of gallbladder Code(s): K82.0 - Obstruction of gallbladder Status: Acute (3) Elevated troponin I level Code(s): R74.8 - Abnormal levels of other serum enzymes Status: Acute (4) Non-ST elevation [place] (NSTEMI) Code(s): I21.4 - Non-ST elevation (NSTEMI) myocardial infarction Status: Acute (5) Acute pancreatitis Code(s): K85.90 - Acute pancreatitis without necrosis or infection, unspecified Status: Acute (6) Severe sepsis Code(s): A41.9 - Sepsis, unspecified organism; R65.20 - Severe sepsis without septic shock Status: Acute (7) Acute kidney insufficiency Code(s): N28.9 - Disorder of kidney and ureter, unspecified Status: Acute (8) Lactic acidosis Code(s): E87.2 - Acidosis Status: Acute (9) Common bile duct dilatation Code(s): K83.8 - Other specified diseases of biliary tract Status: Acute (10) Jaundice Code(s): R17 - Unspecified jaundice Status: Acute - Plan 1) Acute gallstone pancreatitis ERCP, most likely passed the stone 2) Elevated trop Most likely Type 2 due to overall illness Will plan on nuclear stress test tomorrow 3) EF 70%, moderate MR/AR (1) Pancreatitis Qualifiers: Chronicity: acute Pancreatitis type: biliary Acute pancreatitis complication : unspecified Qualified Code(s): K85.10 - Biliary acute pancreatitis without necrosis or infection
--- NOTE | 2018-03-06 16:39 | P.PNGI ---
Subjective Interval history: Laying comfortably in bed denies any pain denies any nausea or vomiting ready to eat lunch Physical Exam Vital signs: Vital Signs 03/05/18 16:44 03/05/18 17:12 03/05/18 18:00 Temperature 97.8 F 98.5 F Pulse Rate 71 66 Respiratory Rate 18 22 18 Blood Pressure 154/80 H 153/55 H Pulse Oximetry 98 98 03/05/18 20:00 03/05/18 20:15 03/05/18 20:30 Temperature 97.4 F L 97.5 F L Pulse Rate 68 67 69 Respiratory Rate 14 14 Blood Pressure 167/79 H 160/72 H Pulse Oximetry 95 89 L 03/05/18 20:45 03/05/18 21:06 03/05/18 22:00 Temperature 97.5 F L 98.3 F Pulse Rate 68 68 Respiratory Rate 14 16 Blood Pressure 153/68 H 173/77 H Pulse Oximetry 93 L 98 97 03/05/18 23:00 03/06/18 00:00 03/06/18 00:45 Temperature 98.4 F Pulse Rate 66 68 Respiratory Rate 20 19 Blood Pressure 169/76 H 162/74 H Pulse Oximetry 99 98 96 03/06/18 01:00 03/06/18 02:00 03/06/18 03:00 Temperature Pulse Rate 69 70 65 Respiratory Rate 30 H 24 22 Blood Pressure 172/79 H 180/84 H 170/78 H Pulse Oximetry 99 98 96 03/06/18 04:00 03/06/18 05:00 03/06/18 05:17 Temperature 98.7 F Pulse Rate 66 53 L Respiratory Rate 18 20 Blood Pressure 168/81 H 183/80 H Pulse Oximetry 97 99 96 03/06/18 06:00 03/06/18 07:00 03/06/18 08:00 Temperature 98.4 F Pulse Rate 66 56 L 66 Respiratory Rate 23 19 20 Blood Pressure 171/81 H 186/85 H 175/80 H Pulse Oximetry 99 98 98 03/06/18 09:00 03/06/18 09:19 03/06/18 10:00 Temperature Pulse Rate 66 69 Respiratory Rate 22 26 H Blood Pressure 176/81 H 167/78 H Pulse Oximetry 98 94 L 95 03/06/18 11:00 03/06/18 11:23 08/23/18 12:00 Temperature 98.4 F 98.5 F Pulse Rate 64 63 Respiratory Rate 24 26 H 21 Blood Pressure 161/73 H 166/78 H Pulse Oximetry 96 96 03/06/18 13:00 Temperature Pulse Rate 69 Respiratory Rate 34 H Blood Pressure 198/92 H Pulse Oximetry 97 Intake & Output 03/05/18 03/06/18 03/06/18 18:59 06:59 18:59 Intake Total 1100 / 1100 3440 / 3440 855 / 855 Output Total 620 / 620 450 / 450 Balance 480 / 480 2990 / 2990 855 / 855 Weight 106 kg Intake: IV 1100 / 1100 2200 / 2200 855 / 855 LR 1000 mL Inj 1,000 ML @ 50 1000 / 1000 500 / 500 mls/hr IV.CONT .Q20H [facility] Rx#: [id number] NS Inj 1,000 ML @ 100 mls/hr IV 1000 / 1000 1000 / 1000 .CONT .Q10H [facility] Rx#:[id number] Zosyn 4.5 GM Premix 4.5 gm In 100 / 100 200 / 200 200 / 200 100 ml @ 200 mls/hr IV.SIG Q6H [facility] Rx#:[id number] Potassium Phosphate Inj 15 MMOL 155 / 155 In NS Inj 150 ML @ 38.75 mls/ hr IV.SIG ONCE ONE Rx#:[id number] Oral 0 / 0 240 / 240 Anesthesia Amount 1000 / 1000 Output: Urine 620 / 620 450 / 450 Other: # Voids 3 Date of Last Bowel Movement 03/06/18 # Bowel Movements 0 0 - Constitutional no acute distress - Routine HEENT Exam Head: Present: normocephalic Eye: Present: EOMI ENT: Present: mucous membranes moist - Routine Neck Exam Present: supple - Routine Respiratory Exam Present: CTA bilaterally - Routine Cardiovascular Exam Present: RRR - Routine Abdominal Exam Present: soft - Routine Extremities Exam Absent: cyanosis, clubbing, edema Results - Labs CBC & Chem 7: 03/06/18 04:04 03/06/18 04:04 Laboratory Results - last 24 hr 03/05/18 03/06/18 03/06/18 20:33 04:04 04:04 WBC 9.6 RBC 3.77 L Hgb 11.6 Hct 34.3 L MCV 90.8 MCH 30.7 MCHC 33.8 RDW 14.8 Plt Count 192 MPV 8.1 Neut % (Auto) 89.5 H Lymph % (Auto) 6.4 L [place] % (Auto) 3.9 Eos % (Auto) 0.0 Baso % (Auto) 0.2 Neut # (Auto) 8.6 H Lymph # (Auto) 0.6 L [place] # (Auto) 0.4 Eos # (Auto) 0.0 Baso # (Auto) 0.0 WBC Differential . Differential Comment Auto diff final Sodium 140 Potassium 3.5 Chloride 105 Carbon Dioxide 26.0 Anion Gap 9 BUN 12 Creatinine 0.55 Estimated GFR Greater than 89 POC Glucose 123 H Random Glucose 147 H Calcium 8.1 L Phosphorus 2.1 L Magnesium 2.1 Total Bilirubin 1.8 H AST 113 H ALT 224 H Alkaline Phosphatase 250 H Total Protein 6.9 Albumin 2.3 L Lipase 466 H Microbiology 03/03/18 20:20 Blood - Peripheral Aerobic Blood Culture - Preliminary No growth in 3 days 03/03/18 20:20 Blood - Peripheral Anaerobic Blood Culture - Preliminary No growth in 3 days 03/03/18 20:15 Blood - Peripheral Aerobic Blood Culture - Preliminary No growth in 3 days 03/03/18 20:15 Blood - Peripheral Anaerobic Blood Culture - Preliminary No growth in 3 days - Imaging Impressions GI Procedure 03/05/18 00:00 CONCLUSION: ERCP images. Assessment and Plan (1) Pancreatitis Status: Acute Code(s): K85.90 - Acute pancreatitis without necrosis or infection, unspecified (2) Obstruction of gallbladder Status: Acute Code(s): K82.0 - Obstruction of gallbladder (3) Acute pancreatitis Status: Acute Code(s): K85.90 - Acute pancreatitis without necrosis or infection, unspecified (4) Severe sepsis Status: Acute Code(s): A41.9 - Sepsis, unspecified organism; R65.20 - Severe sepsis without septic shock - Plan 72-year-old obese female with symptoms of epigastric pain radiating into the right upper quadrant 1 week. Nausea, no vomiting no heartburn, Fatty liver disease with previous 2 liver biopsies obtained. Current labs show elevated AST 277, ALT 373, bilirubin 5.9, lipase level now 9046. Patient did have positive troponin 2.2, as well as epigastric chest pain. Cardiology consult is pending The patient's been monitored in the intensive care setting she notes EGD colonoscopy done 1.5 years ago, borderline [place]. Noted history of bleeding ulcers and some precancerous lesions. No family history of colon cancer but positive for polyps and brother had partial gastrectomy for bleeding ulcers. Currently patient has no obvious GI bleeding. CT scan showed no gallstones, gallbladder distended, common bile duct dilated to the ampulla.\She was transitioned here from [place] and Dr. Vo was contacted to perform ERCP. Addendum note at 1615. Spoke to cardiology , spoke cardiac clearance given to follow through with ERCP. will maintain n.p.o. for now Plan Continue with a clear liquid diet possibly advanced tomorrow if pancreatic enzymes continued to decline Monitor labs so far we are seeing a good response to the ERCP with LFTs and lipase coming down Patient follow-up with GI post discharge Not much to add at this point from a GI perspective we will sign off (1) Pancreatitis Qualifiers: Chronicity: acute Pancreatitis type: biliary Acute pancreatitis complication : unspecified Qualified Code(s): K85.10 - Biliary acute pancreatitis without necrosis or infection
[2018-03-06] MEDS: Enoxaparin Inj 40 MG/0.4 ML Syringe SQ SCH (20:49)
[2018-03-07] MEDS: Chlorhexidine Gluconate 2% 1 Pack (2 Cloths) TOPICAL SCH (07:05)
[2018-03-07 07:26] LABS: Baso % (Auto) 0.3 % (0.0-2.0); Eos # (Auto) 0.2 th/mm3 (0.0-0.4); Eos % (Auto) 2.2 % (0.0-4.0); Hematocrit 33.5 % (35.0-46.0); Hemoglobin 11.5 gm/dL (11.6-15.3); Lymph # (Auto) 1.7 th/mm3 (1.0-4.8); Lymph % (Auto) 17.4 % (9.0-44.0); Mean Corpuscular HGB Conc 34.3 % (32.0-36.0); Mean Corpuscular Hemoglobin 31.2 pg (27.0-34.0); Mean Corpuscular Volume 90.8 fL (80.0-100.0); Mean Platelet Volume 8.2 fL (7.0-11.0); Mono # (Auto) 0.9 th/mm3 (0.0-0.9); Mono % (Auto) 9.2 % (0.0-8.0); Neut % (Auto) 70.9 % (16.0-70.0); Platelet Count 226 th/mm3 (150-450); Red Blood Count 3.69 mil/mm3 (4.00-5.30); Red Cell Distribution Width 14.5 % (11.6-17.2); White Blood Count 9.9 th/mm3 (4.0-11.0)
[2018-03-07 07:41] LABS: Alanine Aminotransferase 194 U/L (10-53); Albumin 2.3 g/dL (3.4-5.0); Alkaline Phosphatase 211 U/L (45-117); Anion Gap 10 meq/L (5-15); Aspartate Aminotransferase 94 U/L (15-37); Blood Urea Nitrogen 9 mg/dL (7-18); Chloride 103 meq/L (98-107); Glomerular Filtration Rate Greater Than 89 mL/min (>89); Glucose,Random 113 mg/dL (74-106); Lipase 719 U/L (73-393); Magnesium 2.1 mg/dL (1.5-2.5); Sodium 141 meq/L (136-145); Total Protein 6.7 g/dL (6.4-8.2)
[2018-03-07 07:54] LABS: Potassium 2.8 meq/L (3.5-5.1)
[2018-03-07 10:11] LABS: Eosinophils 1 % (0-4); Lymphocytes 18 % (9-44); Metamyelocytes 1 % (0-1); Monocytes 12 % (0-8)
[2018-03-07 10:12] LABS: Platelet Estimate Normal (Normal); Platelet Morphology Normal (Normal); RBC Morphology Normal (Normal)
[2018-03-07] MEDS ORDERED: Regadenoson Inj 0.4 MG/5 ML Syringe IV.PUSH ONE (11:43)
[2018-03-07] MEDS: Famotidine PF Inj 20 MG/2 ML Vial IV.PUSH SCH ×2 (13:09→21:11)
[2018-03-07] MEDS: Metoprolol Tartrate 25 MG Tablet PO SCH ×2 (13:10→21:11)
[2018-03-07] MEDS: Senna/Docusate Sodium 8.6/50 MG Tablet PO SCH ×2 (13:10→21:11)
[2018-03-07] MEDS: Morphine Inj 4 MG/ML Vial IV.PUSH PRN ×2 (13:11→17:30)
--- NOTE | 2018-03-07 13:53 | NM ---
EXAM DATE: 03/07/2018 1:40 PM EDT AGE/SEX: 72 years / Female INDICATIONS:Coronary artery disease. . CLINICAL DATA: This is the patient's initial encounter. Patient reports that signs and symptoms have been present for 1 day and indicates a pain score of 3/10. MEDICAL/SURGICAL HISTORY: Hyperparathyroidism. None. COMPARISON: No prior exams available for comparison. No external comparison. DOSE: 10.1 mCi Tc 99m Myoview at rest 26.7 mCi [id number] at stress 0.4 mg Lexiscan STRESS SYMPTOMS: Shortness of breath. EJECTION FRACTION: >70 % TECHNIQUE: The patient underwent pharmacologic stress with infusion of prescribed dose. Continuous ECG tracing was monitored during stress. Gated SPECT imaging was performed after stress and conventi onal SPECT imaging was performed at rest. The examination was performed on a SPECT/CT scanner, both attenuation and non-corrected datasets were reviewed. FINDINGS: Distribution: The maximum perfused segment at stress is in the anterolateral wall. Perfusion Study: The pattern of perfusion at stress demonstrates reduction in perfusion to the ante roseptal wall which demonstrates redistribution during rest. Gated Study: There are intact wall motion and wall thickening without hypokinetic or dyskinetic segm ents. The ejection fraction is calculated at >70%. RISK CATEGORY: Intermediate (1-3 % Annual Mortality Rate) CONCLUSION: 1. Slight to moderate ischemia anteroseptal wall. Electronically signed by: Shanti Thomas MD 03/07/2018 1:51 PM EDT
--- NOTE | 2018-03-07 14:44 | P.PN ---
Subjective Interval history: Follow up gallstone pancreatitis 03/07/18-patient seen and examined, still complains of abdominal pain with radiation to the back Physical Exam Vital signs: Vital Signs 03/06/18 15:00 03/06/18 16:00 03/06/18 16:21 Temperature 98.9 F Pulse Rate 68 68 69 Respiratory Rate 31 H 30 H 35 H Blood Pressure 168/80 H 181/88 H 177/92 H Pulse Oximetry 98 96 97 03/06/18 17:00 03/06/18 18:00 03/06/18 19:00 Temperature 98.8 F Pulse Rate 69 66 69 Respiratory Rate 21 19 28 H Blood Pressure 168/77 H 177/85 H 177/81 H Pulse Oximetry 96 97 97 03/06/18 20:00 03/06/18 20:04 03/06/18 21:00 Temperature 98.2 F Pulse Rate 66 68 70 Respiratory Rate 38 H 33 H 28 H Blood Pressure 180/84 H 188/86 H 196/86 H Pulse Oximetry 97 97 97 03/06/18 21:20 03/06/18 21:43 03/06/18 22:00 Temperature Pulse Rate 63 69 66 Respiratory Rate 23 26 H 21 Blood Pressure 230/109 H 197/83 H 185/79 H Pulse Oximetry 97 95 03/06/18 23:00 03/07/18 00:00 03/07/18 01:00 Temperature 98.3 F Pulse Rate 68 71 69 Respiratory Rate 25 H 36 H 21 Blood Pressure 169/74 H Pulse Oximetry 95 95 95 03/07/18 01:01 03/07/18 02:00 03/07/18 02:13 Temperature Pulse Rate 68 70 79 Respiratory Rate 21 18 29 H Blood Pressure 208/88 H 185/86 H Pulse Oximetry 94 L 90 L 83 L 03/07/18 03:00 03/07/18 03:49 03/07/18 04:00 Temperature Pulse Rate 71 72 71 Respiratory Rate 20 32 H 20 Blood Pressure 196/86 H 194/87 H 188/82 H Pulse Oximetry 90 L 93 L 92 L Intake & Output 03/06/18 03/07/18 03/07/18 18:59 06:59 18:59 Intake Total 2055 / 2055 400 / 400 Output Total 1175 / 1175 Balance 880 / 880 400 / 400 Intake: IV 855 / 855 LR 1000 mL Inj 1,000 ML @ 50 500 / 500 mls/hr IV.CONT .Q20H [facility] Rx#: [id number] Zosyn 4.5 GM Premix 4.5 gm In 200 / 200 100 ml @ 200 mls/hr IV.SIG Q6H [facility] Rx#:[id number] Potassium Phosphate Inj 15 MMOL 155 / 155 In NS Inj 150 ML @ 38.75 mls/ hr IV.SIG ONCE ONE Rx#:[id number] Oral 1200 / 1200 400 / 400 Output: Urine 875 / 875 Urine/Stool Mix 300 / 300 Other: # Voids 3 # Incontinent Voids 4 Date of Last Bowel Movement 03/06/18 03/06/18 # Bowel Movements 1 Narrative: GENERAL: NAD, AAOx3 SKIN: Warm and dry. HEAD: Atraumatic. Normocephalic. EYES: Pupils equal and round. No scleral icterus. No injection or drainage. ENT: No nasal bleeding or discharge. Mucous membranes pink and moist. NECK: Trachea midline. No JVD. CARDIOVASCULAR: Regular rate and rhythm. RESPIRATORY: No accessory muscle use. Clear to auscultation. Breath sounds equal bilaterally. GASTROINTESTINAL: Abdomen soft, mildly tender, nondistended. Hepatic and splenic margins not palpable. MUSCULOSKELETAL: Extremities without clubbing, cyanosis, or edema. No obvious deformities. NEUROLOGICAL: Awake and alert. No obvious cranial nerve deficits. Motor grossly within normal limits. Five out of 5 muscle strength in the arms and legs. Normal speech. PSYCHIATRIC: Appropriate mood and affect; insight and judgment normal. Results - Labs CBC & Chem 7: 03/07/18 03:49 03/07/18 03:49 Laboratory Results - last 24 hr 03/07/18 03/07/18 03:49 03:49 WBC 9.9 RBC 3.69 L Hgb 11.5 L Hct 33.5 L MCV 90.8 MCH 31.2 MCHC 34.3 RDW 14.5 Plt Count 226 MPV 8.2 Prelim Diff (Auto) Slide review pending Neut % (Auto) 70.9 H Lymph % (Auto) 17.4 [place] % (Auto) 9.2 H Eos % (Auto) 2.2 Baso % (Auto) 0.3 Neut # (Auto) 7.0 Lymph # (Auto) 1.7 [place] # (Auto) 0.9 Eos # (Auto) 0.2 Baso # (Auto) 0.0 WBC Differential Manual diff final Seg Neuts % (Manual) 68 Lymphocytes % (Manual) 18 Monocytes % (Manual) 12 H Eosinophils % (Manual) 1 Metamyelocytes % (Man) 1 Abs Neuts (Manual) 6.8 Differential Comment . Platelet Estimate Normal Platelet Morphology Normal RBC Morphology Normal Sodium 141 Potassium 2.8 L* Chloride 103 Carbon Dioxide 28.0 Anion Gap 10 BUN 9 Creatinine 0.56 Estimated GFR Greater than 89 Random Glucose 113 H Calcium 8.0 L Phosphorus 2.0 L Magnesium 2.1 Total Bilirubin 1.1 H AST 94 H ALT 194 H Alkaline Phosphatase 211 H Total Protein 6.7 Albumin 2.3 L Lipase 719 H Microbiology 03/03/18 20:20 Blood - Peripheral Aerobic Blood Culture - Preliminary No growth in 4 days 03/03/18 20:20 Blood - Peripheral Anaerobic Blood Culture - Preliminary No growth in 4 days 03/03/18 20:15 Blood - Peripheral Aerobic Blood Culture - Preliminary No growth in 4 days 03/03/18 20:15 Blood - Peripheral Anaerobic Blood Culture - Preliminary No growth in 4 days - Imaging Impressions Myocardial Perfusion Scan Nuc Med 03/07/18 09:00 CONCLUSION: 1. Slight to moderate ischemia anteroseptal wall. Assessment and Plan - Plan 1. Acute pancreatitis -secondary to gallstone, post ERCP 03/05 Improving; Monitor Lipase and T bili. s/p Zosyn 2. Possible cholangitis -no evidence found on ERCP 3. Severe sepsis -resolved 4. Lactic acidosis -resolved 5. Non-STEMI -troponin trending down, followed by cardiology. Plan for Nuclear stress text today 03/07. 2D echo pending. No ASA 2/2 allergy 6. BRIA -creatinine normalized 7. Hypertension On Lopressor 8. GI prophylaxis with pantoprazole 9. DVT prophylaxis with SCDs and Lovenox
--- NOTE | 2018-03-07 17:42 | P.PNCA ---
Subjective Interval history: No events overnight Feels tired, no CP/SOB Mild abdominal pain Physical Exam Vital signs: Vital Signs 03/06/18 18:00 03/06/18 19:00 03/06/18 20:00 Temperature 98.2 F Pulse Rate 66 69 66 Respiratory Rate 19 28 H 38 H Blood Pressure 177/85 H 177/81 H 180/84 H Pulse Oximetry 97 97 97 03/06/18 20:04 03/06/18 21:00 03/06/18 21:20 Temperature Pulse Rate 68 70 63 Respiratory Rate 33 H 28 H 23 Blood Pressure 188/86 H 196/86 H 230/109 H Pulse Oximetry 97 97 03/06/18 21:43 03/06/18 22:00 03/06/18 23:00 Temperature Pulse Rate 69 66 68 Respiratory Rate 26 H 21 25 H Blood Pressure 197/83 H 185/79 H 169/74 H Pulse Oximetry 97 95 95 03/07/18 00:00 03/07/18 01:00 03/07/18 01:01 Temperature 98.3 F Pulse Rate 71 69 68 Respiratory Rate 36 H 21 21 Blood Pressure 208/88 H Pulse Oximetry 95 95 94 L 03/07/18 02:00 03/07/18 02:13 03/07/18 03:00 Temperature Pulse Rate 70 79 71 Respiratory Rate 18 29 H 20 Blood Pressure 185/86 H 196/86 H Pulse Oximetry 90 L 83 L 90 L 03/07/18 03:49 03/07/18 04:00 Temperature Pulse Rate 72 71 Respiratory Rate 32 H 20 Blood Pressure 194/87 H 188/82 H Pulse Oximetry 93 L 92 L Intake & Output 03/06/18 03/07/18 03/07/18 18:59 06:59 18:59 Intake Total 2055 / 2055 400 / 400 Output Total 1175 / 1175 Balance 880 / 880 400 / 400 Intake: IV 855 / 855 LR 1000 mL Inj 1,000 ML @ 50 500 / 500 mls/hr IV.CONT .Q20H [facility] Rx#: [id number] Zosyn 4.5 GM Premix 4.5 gm In 200 / 200 100 ml @ 200 mls/hr IV.SIG Q6H [facility] Rx#:[id number] Potassium Phosphate Inj 15 MMOL 155 / 155 In NS Inj 150 ML @ 38.75 mls/ hr IV.SIG ONCE ONE Rx#:[id number] Oral 1200 / 1200 400 / 400 Output: Urine 875 / 875 Urine/Stool Mix 300 / 300 Other: # Voids 3 # Incontinent Voids 4 Date of Last Bowel Movement 03/06/18 03/06/18 # Bowel Movements 1 Narrative: GENERAL: NAD, AAOx3 SKIN: Warm and dry. HEAD: Atraumatic. Normocephalic. EYES: Pupils equal and round. No scleral icterus. No injection or drainage. ENT: No nasal bleeding or discharge. Mucous membranes pink and moist. NECK: Trachea midline. No JVD. CARDIOVASCULAR: Regular rate and rhythm. RESPIRATORY: No accessory muscle use. Clear to auscultation. Breath sounds equal bilaterally. GASTROINTESTINAL: Abdomen soft, mildly tender, nondistended. Hepatic and splenic margins not palpable. MUSCULOSKELETAL: Extremities without clubbing, cyanosis, or edema. No obvious deformities. NEUROLOGICAL: Awake and alert. No obvious cranial nerve deficits. Motor grossly within normal limits. Five out of 5 muscle strength in the arms and legs. Normal speech. PSYCHIATRIC: Appropriate mood and affect; insight and judgment normal. Assessment and Plan - Assessment (1) Pancreatitis Code(s): K85.90 - Acute pancreatitis without necrosis or infection, unspecified Status: Acute (2) Obstruction of gallbladder Code(s): K82.0 - Obstruction of gallbladder Status: Acute (3) Elevated troponin I level Code(s): R74.8 - Abnormal levels of other serum enzymes Status: Acute (4) Non-ST elevation RI (NSTEMI) Code(s): I21.4 - Non-ST elevation (NSTEMI) myocardial infarction Status: Acute (5) Acute pancreatitis Code(s): K85.90 - Acute pancreatitis without necrosis or infection, unspecified Status: Acute (6) Severe sepsis Code(s): A41.9 - Sepsis, unspecified organism; R65.20 - Severe sepsis without septic shock Status: Acute (7) Acute kidney insufficiency Code(s): N28.9 - Disorder of kidney and ureter, unspecified Status: Acute (8) Lactic acidosis Code(s): E87.2 - Acidosis Status: Acute (9) Common bile duct dilatation Code(s): K83.8 - Other specified diseases of biliary tract Status: Acute (10) Jaundice Code(s): R17 - Unspecified jaundice Status: Acute - Plan 1) Acute gallstone pancreatitis ERCP, most likely passed the stone Lipase trending down 2) Elevated trop Most likely Type 2 due to overall illness Nuclear stress test showing possible ischemia of the anteroseptal wall Will need to plan on cardiac cath on Saturday Will have to check on ASA allergy 3) EF 70%, moderate MR/AR (1) Pancreatitis Qualifiers: Chronicity: acute Pancreatitis type: biliary Acute pancreatitis complication : unspecified Qualified Code(s): K85.10 - Biliary acute pancreatitis without necrosis or infection
[2018-03-07] MEDS: Enoxaparin Inj 40 MG/0.4 ML Syringe SQ SCH (21:11)
[2018-03-08 05:28] LABS: Baso % (Auto) 0.3 % (0.0-2.0); Eos # (Auto) 0.3 th/mm3 (0.0-0.4); Eos % (Auto) 2.7 % (0.0-4.0); Hematocrit 32.8 % (35.0-46.0); Hemoglobin 11.3 gm/dL (11.6-15.3); Lymph # (Auto) 1.7 th/mm3 (1.0-4.8); Lymph % (Auto) 15.9 % (9.0-44.0); Mean Corpuscular HGB Conc 34.4 % (32.0-36.0); Mean Corpuscular Hemoglobin 30.6 pg (27.0-34.0); Mean Platelet Volume 7.5 fL (7.0-11.0); Mono # (Auto) 1.1 th/mm3 (0.0-0.9); Mono % (Auto) 10.6 % (0.0-8.0); Neut # (Auto) 7.5 th/mm3 (1.8-7.7); Neut % (Auto) 70.5 % (16.0-70.0); Platelet Count 232 th/mm3 (150-450); Red Blood Count 3.69 mil/mm3 (4.00-5.30); Red Cell Distribution Width 14.6 % (11.6-17.2); White Blood Count 10.6 th/mm3 (4.0-11.0)
[2018-03-08] MEDS: Chlorhexidine Gluconate 2% 1 Pack (2 Cloths) TOPICAL SCH (05:50)
[2018-03-08 05:56] LABS: Alanine Aminotransferase 182 U/L (10-53); Albumin 2.2 g/dL (3.4-5.0); Anion Gap 9 meq/L (5-15); Aspartate Aminotransferase 89 U/L (15-37); Blood Urea Nitrogen 6 mg/dL (7-18); Carbon Dioxide 28.9 meq/L (21.0-32.0); Chloride 101 meq/L (98-107); Glomerular Filtration Rate Greater Than 89 mL/min (>89); Glucose,Random 109 mg/dL (74-106); Lipase 443 U/L (73-393); Magnesium 1.9 mg/dL (1.5-2.5); Sodium 139 meq/L (136-145)
[2018-03-08 06:02] LABS: Alkaline Phosphatase 187 U/L (45-117); Phosphorus 3.1 mg/dL (2.5-4.9); Total Protein 6.5 g/dL (6.4-8.2)
--- NOTE | 2018-03-08 09:17 | P.PN ---
Subjective Interval history: Follow up gallstone pancreatitis 03/07/18-patient seen and examined, still complains of abdominal pain with radiation to the back 03/08/18-patient seen and examined, reports some improvement of abdominal pain however only complains of pain with food. BP stable. Denies any chest pain. Physical Exam Vital signs: Vital Signs 03/07/18 12:00 03/07/18 18:30 03/07/18 20:00 Temperature 98.1 F 97.5 F L Pulse Rate 74 Respiratory Rate 18 23 Blood Pressure 111/61 Pulse Oximetry 94 L 03/07/18 22:00 03/08/18 00:00 03/08/18 02:00 Temperature 98.7 F Pulse Rate 68 73 70 Respiratory Rate 22 Blood Pressure 141/67 H Pulse Oximetry 98 03/08/18 04:00 03/08/18 06:00 03/08/18 08:41 Temperature 98.7 F Pulse Rate 67 68 Respiratory Rate 27 H Blood Pressure 146/77 H Pulse Oximetry 96 98 Intake & Output 03/07/18 03/08/18 03/08/18 18:59 06:59 18:59 Intake Total 500 / 500 480 / 480 Output Total 1250 / 1250 525 / 525 Balance -750 / -750 -45 / -45 Weight 106 kg Intake: Oral 500 / 500 480 / 480 Anesthesia Amount 0 / 0 Output: Urine 1250 / 1250 525 / 525 Urine/Stool Mix 0 / 0 Other: # Voids 2 # Incontinent Voids 0 Date of Last Bowel Movement 03/06/18 03/07/18 # Bowel Movements 0 Narrative: GENERAL: NAD SKIN: Warm and dry. HEAD: Atraumatic. Normocephalic. EYES: Pupils equal and round. No scleral icterus. No injection or drainage. ENT: No nasal bleeding or discharge. Mucous membranes pink and moist. NECK: Trachea midline. No JVD. CARDIOVASCULAR: Regular rate and rhythm. RESPIRATORY: No accessory muscle use. Clear to auscultation. Breath sounds equal bilaterally. GASTROINTESTINAL: Abdomen soft, mildly tender, nondistended. MUSCULOSKELETAL: Extremities without clubbing, cyanosis, or edema. No obvious deformities. NEUROLOGICAL: Awake and alert. No obvious cranial nerve deficits. Motor grossly within normal limits. Five out of 5 muscle strength in the arms and legs. Normal speech. PSYCHIATRIC: Appropriate mood and affect; insight and judgment normal. Results - Labs CBC & Chem 7: 03/08/18 03:34 03/08/18 03:34 Laboratory Results - last 24 hr 03/07/18 03/08/18 03/08/18 03:49 03:34 03:34 WBC 10.6 RBC 3.69 L Hgb 11.3 L Hct 32.8 L MCV 89.0 MCH 30.6 MCHC 34.4 RDW 14.6 Plt Count 232 MPV 7.5 Neut % (Auto) 70.5 H Lymph % (Auto) 15.9 [place] % (Auto) 10.6 H Eos % (Auto) 2.7 Baso % (Auto) 0.3 Neut # (Auto) 7.5 Lymph # (Auto) 1.7 [place] # (Auto) 1.1 H Eos # (Auto) 0.3 Baso # (Auto) 0.0 WBC Differential Manual diff final . Seg Neuts % (Manual) 68 Lymphocytes % (Manual) 18 Monocytes % (Manual) 12 H Eosinophils % (Manual) 1 Metamyelocytes % (Man) 1 Abs Neuts (Manual) 6.8 Differential Comment Auto diff final Platelet Estimate Normal Platelet Morphology Normal RBC Morphology Normal Sodium 139 Potassium 3.0 L Chloride 101 Carbon Dioxide 28.9 Anion Gap 9 BUN 6 L Creatinine 0.47 L Estimated GFR Greater than 89 Random Glucose 109 H Calcium 8.0 L Phosphorus 3.1 D Magnesium 1.9 Total Bilirubin 1.2 H Direct Bilirubin 0.6 H Indirect Bilirubin 0.6 AST 89 H ALT 182 H Alkaline Phosphatase 187 H Total Protein 6.5 Albumin 2.2 L Lipase 443 H Microbiology 03/03/18 20:20 Blood - Peripheral Aerobic Blood Culture - Preliminary No growth in 4 days 03/03/18 20:20 Blood - Peripheral Anaerobic Blood Culture - Preliminary No growth in 4 days 03/03/18 20:15 Blood - Peripheral Aerobic Blood Culture - Preliminary No growth in 4 days 03/03/18 20:15 Blood - Peripheral Anaerobic Blood Culture - Preliminary No growth in 4 days - Imaging Impressions Myocardial Perfusion Scan Nuc Med 03/07/18 09:00 CONCLUSION: 1. Slight to moderate ischemia anteroseptal wall. Assessment and Plan - Plan 1. Acute pancreatitis -secondary to gallstone, post ERCP 03/05 Improving; Monitor Lipase and T bili. s/p Zosyn. Advance diet as tolerated 2. Possible cholangitis -no evidence found on ERCP 3. Severe sepsis -resolved 4. Lactic acidosis -resolved 5. Non-STEMI -troponin trending down, followed by cardiology. s/p Nuclear stress text with finding of Slight to moderate ischemia anteroseptal wall on . 2D echo with EF 75%. Plan for left heart catheterization Saturday, March 102017 no ASA 2/2 allergy 6. BRIA -creatinine normalized 7. Hypertension On Lopressor 8. GI prophylaxis with pantoprazole 9. DVT prophylaxis with SCDs and Lovenox Transfer to [facility] [place]
[2018-03-08] MEDS: Metoprolol Tartrate 25 MG Tablet PO SCH ×2 (09:43→20:32)
[2018-03-08] MEDS: Senna/Docusate Sodium 8.6/50 MG Tablet PO SCH ×2 (09:43→20:32)
--- NOTE | 2018-03-08 09:54 | P.PN ---
Subjective Interval history: Pt w/o complaints. Physical Exam Vital signs: Vital Signs 03/07/18 12:00 03/07/18 18:30 03/07/18 20:00 Temperature 98.1 F 97.5 F L Pulse Rate 74 Respiratory Rate 18 23 Blood Pressure 111/61 Pulse Oximetry 94 L 03/07/18 22:00 03/08/18 00:00 03/08/18 02:00 Temperature 98.7 F Pulse Rate 68 73 70 Respiratory Rate 22 Blood Pressure 141/67 H Pulse Oximetry 98 03/08/18 04:00 03/08/18 06:00 03/08/18 08:41 Temperature 98.7 F Pulse Rate 67 68 Respiratory Rate 27 H Blood Pressure 146/77 H Pulse Oximetry 96 98 Intake & Output 03/07/18 03/08/18 03/08/18 18:59 06:59 18:59 Intake Total 500 / 500 480 / 480 Output Total 1250 / 1250 525 / 525 Balance -750 / -750 -45 / -45 Weight 106 kg Intake: Oral 500 / 500 480 / 480 Anesthesia Amount 0 / 0 Output: Urine 1250 / 1250 525 / 525 Urine/Stool Mix 0 / 0 Other: # Voids 2 # Incontinent Voids 0 Date of Last Bowel Movement 03/06/18 03/07/18 # Bowel Movements 0 - Constitutional no acute distress - Routine HEENT Exam Head: Present: normocephalic - Routine Neck Exam Present: supple. Absent: JVD - Routine Respiratory Exam Absent: accessory muscle use - Routine Cardiovascular Exam Present: RRR. Absent: murmur - Routine Abdominal Exam Present: soft - Routine Extremities Exam Absent: edema - Routine Neurological Exam Present: alert, oriented X3 Results - Labs CBC & Chem 7: 03/08/18 03:34 03/08/18 03:34 Laboratory Results - last 24 hr 03/07/18 03/08/18 03/08/18 03:49 03:34 03:34 WBC 10.6 RBC 3.69 L Hgb 11.3 L Hct 32.8 L MCV 89.0 MCH 30.6 MCHC 34.4 RDW 14.6 Plt Count 232 MPV 7.5 Neut % (Auto) 70.5 H Lymph % (Auto) 15.9 [place] % (Auto) 10.6 H Eos % (Auto) 2.7 Baso % (Auto) 0.3 Neut # (Auto) 7.5 Lymph # (Auto) 1.7 [place] # (Auto) 1.1 H Eos # (Auto) 0.3 Baso # (Auto) 0.0 WBC Differential Manual diff final . Seg Neuts % (Manual) 68 Lymphocytes % (Manual) 18 Monocytes % (Manual) 12 H Eosinophils % (Manual) 1 Metamyelocytes % (Man) 1 Abs Neuts (Manual) 6.8 Differential Comment Auto diff final Platelet Estimate Normal Platelet Morphology Normal RBC Morphology Normal Sodium 139 Potassium 3.0 L Chloride 101 Carbon Dioxide 28.9 Anion Gap 9 BUN 6 L Creatinine 0.47 L Estimated GFR Greater than 89 Random Glucose 109 H Calcium 8.0 L Phosphorus 3.1 D Magnesium 1.9 Total Bilirubin 1.2 H Direct Bilirubin 0.6 H Indirect Bilirubin 0.6 AST 89 H ALT 182 H Alkaline Phosphatase 187 H Total Protein 6.5 Albumin 2.2 L Lipase 443 H Microbiology 03/03/18 20:20 Blood - Peripheral Aerobic Blood Culture - Preliminary No growth in 4 days 03/03/18 20:20 Blood - Peripheral Anaerobic Blood Culture - Preliminary No growth in 4 days 03/03/18 20:15 Blood - Peripheral Aerobic Blood Culture - Preliminary No growth in 4 days 03/03/18 20:15 Blood - Peripheral Anaerobic Blood Culture - Preliminary No growth in 4 days - Imaging Impressions Myocardial Perfusion Scan Nuc Med 03/07/18 09:00 CONCLUSION: 1. Slight to moderate ischemia anteroseptal wall. Assessment and Plan - Assessment (1) Elevated troponin I level Code(s): R74.8 - Abnormal levels of other serum enzymes Status: Acute Plan: Now w/ abnl stress, Dr. Senior to cath saturday. (2) Pancreatitis Code(s): K85.90 - Acute pancreatitis without necrosis or infection, unspecified Status: Acute (3) Obstruction of gallbladder Code(s): K82.0 - Obstruction of gallbladder Status: Acute (4) Non-ST elevation PR (NSTEMI) Code(s): I21.4 - Non-ST elevation (NSTEMI) myocardial infarction Status: Acute (5) Acute pancreatitis Code(s): K85.90 - Acute pancreatitis without necrosis or infection, unspecified Status: Acute (6) Severe sepsis Code(s): A41.9 - Sepsis, unspecified organism; R65.20 - Severe sepsis without septic shock Status: Acute (7) Acute kidney insufficiency Code(s): N28.9 - Disorder of kidney and ureter, unspecified Status: Acute (8) Lactic acidosis Code(s): E87.2 - Acidosis Status: Acute (9) Common bile duct dilatation Code(s): K83.8 - Other specified diseases of biliary tract Status: Acute (10) Jaundice Code(s): R17 - Unspecified jaundice Status: Acute (2) Pancreatitis Qualifiers: Chronicity: acute Pancreatitis type: biliary Acute pancreatitis complication : unspecified Qualified Code(s): K85.10 - Biliary acute pancreatitis without necrosis or infection
[2018-03-08] MEDS: Famotidine PF Inj 20 MG/2 ML Vial IV.PUSH SCH ×2 (10:42→20:32)
[2018-03-08] MEDS: Morphine Inj 4 MG/ML Vial IV.PUSH PRN (11:28)
[2018-03-08] MEDS: Enoxaparin Inj 40 MG/0.4 ML Syringe SQ SCH (23:19)
[2018-03-09 05:37] LABS: Baso % (Auto) 0.3 % (0.0-2.0); Eos # (Auto) 0.3 th/mm3 (0.0-0.4); Hematocrit 33.9 % (35.0-46.0); Hemoglobin 11.2 gm/dL (11.6-15.3); Lymph # (Auto) 1.7 th/mm3 (1.0-4.8); Lymph % (Auto) 15.5 % (9.0-44.0); Mean Corpuscular Hemoglobin 30.1 pg (27.0-34.0); Mean Corpuscular Volume 91.1 fL (80.0-100.0); Mean Platelet Volume 7.9 fL (7.0-11.0); Mono # (Auto) 0.9 th/mm3 (0.0-0.9); Mono % (Auto) 7.6 % (0.0-8.0); Neut # (Auto) 8.3 th/mm3 (1.8-7.7); Neut % (Auto) 73.6 % (16.0-70.0); Platelet Count 271 th/mm3 (150-450); Red Blood Count 3.72 mil/mm3 (4.00-5.30); Red Cell Distribution Width 14.8 % (11.6-17.2); White Blood Count 11.3 th/mm3 (4.0-11.0)
[2018-03-09 06:29] LABS: Alanine Aminotransferase 140 U/L (10-53); Albumin 2.1 g/dL (3.4-5.0); Anion Gap 11 meq/L (5-15); Aspartate Aminotransferase 47 U/L (15-37); Calcium 8.4 mg/dL (8.5-10.1); Carbon Dioxide 27.2 meq/L (21.0-32.0); Chloride 103 meq/L (98-107); Glomerular Filtration Rate Greater Than 89 mL/min (>89); Glucose,Random 116 mg/dL (74-106); Lipase 688 U/L (73-393); Magnesium 2.1 mg/dL (1.5-2.5); Potassium 3.3 meq/L (3.5-5.1); Sodium 141 meq/L (136-145)
[2018-03-09 06:39] LABS: Alkaline Phosphatase 180 U/L (45-117); Blood Urea Nitrogen 8 mg/dL (7-18); Total Protein 6.7 g/dL (6.4-8.2)
[2018-03-09] MEDS: Famotidine PF Inj 20 MG/2 ML Vial IV.PUSH SCH (08:49)
[2018-03-09] MEDS: Metoprolol Tartrate 25 MG Tablet PO SCH ×2 (08:49→20:28)
[2018-03-09] MEDS: Senna/Docusate Sodium 8.6/50 MG Tablet PO SCH ×2 (08:50→20:28)
[2018-03-09] MEDS: Acetaminophen 325 MG Tablet PO PRN ×2 (11:33→23:50)
--- NOTE | 2018-03-09 14:00 | P.PN ---
Subjective Interval history: Follow-up for abdominal pain and elevated troponin-denies any chest pain, complaints of shortness of breath and wheezing, denies any history of known asthma. No chest pain, minimal right upper quadrant pain, no nausea, no vomiting, no fever. Daughter at bedside, asking multiple questions about cardiac cath and discharge plan. Physical Exam Vital signs: Vital Signs 03/08/18 14:00 03/08/18 15:00 03/08/18 16:00 Temperature 98.3 F Pulse Rate 75 68 68 Respiratory Rate 23 20 22 Blood Pressure 144/64 H 150/69 H 169/75 H Pulse Oximetry 94 L 97 97 03/08/18 17:00 03/08/18 17:30 03/08/18 18:00 Temperature 98.2 F Pulse Rate 67 76 81 Respiratory Rate 23 28 H 28 H Blood Pressure 183/84 H 195/88 H 196/96 H Pulse Oximetry 95 96 94 L 03/08/18 18:31 03/08/18 20:00 03/08/18 23:26 Temperature 98.2 F 98.9 F Pulse Rate 84 71 66 Respiratory Rate 29 H 18 18 Blood Pressure 191/82 H 156/72 H 172/74 H Pulse Oximetry 97 96 94 L 03/09/18 00:00 03/09/18 04:00 03/09/18 08:00 Temperature 98.5 F 97.7 F Pulse Rate 71 67 72 Respiratory Rate 20 20 Blood Pressure 164/75 H 200/83 H Pulse Oximetry 93 L 98 03/09/18 09:18 03/09/18 10:46 Temperature Pulse Rate 67 Respiratory Rate 20 Blood Pressure Pulse Oximetry 98 Intake & Output 03/08/18 03/09/18 03/09/18 18:59 06:59 18:59 Intake Total 1100 / 1100 Output Total 1600 / 1600 Balance -500 / -500 Weight 102.2 kg Intake: Oral 1100 / 1100 Output: Urine 1600 / 1600 Other: # Voids 3 Date of Last Bowel Movement 03/08/18 # Bowel Movements 2 1 Narrative: GENERAL: Well-nourished, well-developed patient in no apparent distress. SKIN: Warm and dry. HEAD: Atraumatic. Normocephalic. EYES: Pupils equal and round. No scleral icterus. No injection or drainage. ENT: No nasal bleeding or discharge. Mucous membranes pink and moist. NECK: Trachea midline. No JVD. CARDIOVASCULAR: Regular rate and rhythm. RESPIRATORY: No accessory muscle use. Clear to auscultation. Breath sounds equal bilaterally. GASTROINTESTINAL: Abdomen soft, non-tender, nondistended. Hepatic and splenic margins not palpable. MUSCULOSKELETAL: Extremities without clubbing, cyanosis, or edema. No obvious deformities. NEUROLOGICAL: Awake and alert. No obvious cranial nerve deficits. Motor grossly within normal limits. Five out of 5 muscle strength in the arms and legs. Normal speech. PSYCHIATRIC: Appropriate mood and affect; insight and judgment normal. Results - Labs CBC & Chem 7: 03/09/18 03:58 03/09/18 03:58 Laboratory Results - last 24 hr 03/09/18 03/09/18 03:58 03:58 WBC 11.3 H RBC 3.72 L Hgb 11.2 L Hct 33.9 L MCV 91.1 MCH 30.1 MCHC 33.0 RDW 14.8 Plt Count 271 MPV 7.9 Neut % (Auto) 73.6 H Lymph % (Auto) 15.5 [place] % (Auto) 7.6 Eos % (Auto) 3.0 Baso % (Auto) 0.3 Neut # (Auto) 8.3 H Lymph # (Auto) 1.7 [place] # (Auto) 0.9 Eos # (Auto) 0.3 Baso # (Auto) 0.0 WBC Differential . Differential Comment Auto diff final Sodium 141 Potassium 3.3 L Chloride 103 Carbon Dioxide 27.2 Anion Gap 11 BUN 8 Creatinine 0.62 Estimated GFR Greater than 89 Random Glucose 116 H Calcium 8.4 L Phosphorus 4.0 Magnesium 2.1 Total Bilirubin 1.0 AST 47 H ALT 140 H Alkaline Phosphatase 180 H Total Protein 6.7 Albumin 2.1 L Lipase 688 H Microbiology 03/03/18 20:20 Blood - Peripheral Aerobic Blood Culture - Final No growth in 5 days 03/03/18 20:20 Blood - Peripheral Anaerobic Blood Culture - Final No growth in 5 days 03/03/18 20:15 Blood - Peripheral Aerobic Blood Culture - Final No growth in 5 days 03/03/18 20:15 Blood - Peripheral Anaerobic Blood Culture - Final No growth in 5 days Assessment and Plan - Assessment (1) Acute pancreatitis Code(s): K85.90 - Acute pancreatitis without necrosis or infection, unspecified Status: Acute (2) Non-ST elevation DC (NSTEMI) Code(s): I21.4 - Non-ST elevation (NSTEMI) myocardial infarction Status: Acute (3) Acute kidney insufficiency Code(s): N28.9 - Disorder of kidney and ureter, unspecified Status: Acute (4) Lactic acidosis Code(s): E87.2 - Acidosis Status: Acute (5) Hypertension Code(s): I10 - Essential (primary) hypertension Status: Chronic (6) Obstruction of gallbladder Code(s): K82.0 - Obstruction of gallbladder Status: Acute - Plan - Assessment/Plan Patient is a 72-year-old obese female with past medical history only significant for hypertension, and GI bleed from peptic ulcer, who presented to the emergency department at [place] for epigastric pain radiating to the right lower quadrant and to the back. Trop noted elevated as well. Acute pancreatitis -secondary to gallstone, post ERCP 03/05 Poss cholangitis-no evidence found on ERCP -appreciate GI input -T bili trending down, Lipase 633 today -continue with present diet, tolerating well. Minimal pain. Lactic acidosis sepsis -s/p Zosyn, off abx now -WBC stable, no fever. -cultures negative Non-STEMI -troponin trending down s/p Nuclear stress text with finding of Slight to moderate ischemia anteroseptal wall on 03/07. -appreciate card input -2D echo with EF 75%. -Plan for left heart catheterization Saturday, March 10, 2018 -no ASA 2/2 allergy -continue Metroprolol 25 mg po bid BRIA -received IVF, back to normal now HTN, has been poorly controlled -continue Lopressor -will start Lisinopril 5 mg po daily Wheezing, denies any hx of asthma -Duonebs PRN GI prophylaxis with Pepcid DVT prophylaxis with SCDs and Lovenox CMP in am follow lipase poss dc in 1-2 days depending on cardiac cath results d/w RN, pt and daughter, BEST (5) Hypertension Qualifiers: Hypertension type: essential hypertension Qualified Code(s): I10 - Essential (primary) hypertension
--- NOTE | 2018-03-09 14:32 | P.PN ---
Subjective Interval history: Pt w/o cardiac complaints Physical Exam Vital signs: Vital Signs 03/08/18 15:00 03/08/18 16:00 03/08/18 17:00 Temperature 98.3 F Pulse Rate 68 68 67 Respiratory Rate 20 22 23 Blood Pressure 150/69 H 169/75 H 183/84 H Pulse Oximetry 97 97 95 03/08/18 17:30 03/08/18 18:00 03/08/18 18:31 Temperature 98.2 F Pulse Rate 76 81 84 Respiratory Rate 28 H 28 H 29 H Blood Pressure 195/88 H 196/96 H 191/82 H Pulse Oximetry 96 94 L 97 03/08/18 20:00 03/08/18 23:26 03/09/18 00:00 Temperature 98.2 F 98.9 F Pulse Rate 71 66 71 Respiratory Rate 18 18 Blood Pressure 156/72 H 172/74 H Pulse Oximetry 96 94 L 03/09/18 04:00 03/09/18 08:00 03/09/18 09:18 Temperature 98.5 F 97.7 F Pulse Rate 67 72 67 Respiratory Rate 20 20 20 Blood Pressure 164/75 H 200/83 H Pulse Oximetry 93 L 98 03/09/18 10:46 Temperature Pulse Rate Respiratory Rate Blood Pressure Pulse Oximetry 98 Intake & Output 03/08/18 03/09/18 03/09/18 18:59 06:59 18:59 Intake Total 1100 / 1100 Output Total 1600 / 1600 Balance -500 / -500 Weight 102.2 kg Intake: Oral 1100 / 1100 Output: Urine 1600 / 1600 Other: # Voids 3 Date of Last Bowel Movement 03/08/18 # Bowel Movements 2 1 - Constitutional no acute distress - Routine Neck Exam Present: supple. Absent: JVD - Routine Respiratory Exam Present: CTA bilaterally. Absent: accessory muscle use - Routine Cardiovascular Exam Present: RRR. Absent: murmur - Routine Abdominal Exam Present: soft, distended - Routine Extremities Exam Absent: edema Results - Labs CBC & Chem 7: 03/09/18 03:58 03/09/18 03:58 Laboratory Results - last 24 hr 03/09/18 03/09/18 03:58 03:58 WBC 11.3 H RBC 3.72 L Hgb 11.2 L Hct 33.9 L MCV 91.1 MCH 30.1 MCHC 33.0 RDW 14.8 Plt Count 271 MPV 7.9 Neut % (Auto) 73.6 H Lymph % (Auto) 15.5 [place] % (Auto) 7.6 Eos % (Auto) 3.0 Baso % (Auto) 0.3 Neut # (Auto) 8.3 H Lymph # (Auto) 1.7 [place] # (Auto) 0.9 Eos # (Auto) 0.3 Baso # (Auto) 0.0 WBC Differential . Differential Comment Auto diff final Sodium 141 Potassium 3.3 L Chloride 103 Carbon Dioxide 27.2 Anion Gap 11 BUN 8 Creatinine 0.62 Estimated GFR Greater than 89 Random Glucose 116 H Calcium 8.4 L Phosphorus 4.0 Magnesium 2.1 Total Bilirubin 1.0 AST 47 H ALT 140 H Alkaline Phosphatase 180 H Total Protein 6.7 Albumin 2.1 L Lipase 688 H Microbiology 03/03/18 20:20 Blood - Peripheral Aerobic Blood Culture - Final No growth in 5 days 03/03/18 20:20 Blood - Peripheral Anaerobic Blood Culture - Final No growth in 5 days 03/03/18 20:15 Blood - Peripheral Aerobic Blood Culture - Final No growth in 5 days 03/03/18 20:15 Blood - Peripheral Anaerobic Blood Culture - Final No growth in 5 days Assessment and Plan - Assessment (1) Elevated troponin I level Code(s): R74.8 - Abnormal levels of other serum enzymes Status: Acute Plan: Now w/ abnl Dr. Parrish hernandez to cath saturday. (2) Pancreatitis Code(s): K85.90 - Acute pancreatitis without necrosis or infection, unspecified Status: Acute (3) Obstruction of gallbladder Code(s): K82.0 - Obstruction of gallbladder Status: Acute (4) Non-ST elevation LA (NSTEMI) Code(s): I21.4 - Non-ST elevation (NSTEMI) myocardial infarction Status: Acute (5) Acute pancreatitis Code(s): K85.90 - Acute pancreatitis without necrosis or infection, unspecified Status: Acute (6) Severe sepsis Code(s): A41.9 - Sepsis, unspecified organism; R65.20 - Severe sepsis without septic shock Status: Acute (7) Acute kidney insufficiency Code(s): N28.9 - Disorder of kidney and ureter, unspecified Status: Acute (8) Lactic acidosis Code(s): E87.2 - Acidosis Status: Acute (9) Common bile duct dilatation Code(s): K83.8 - Other specified diseases of biliary tract Status: Acute (10) Jaundice Code(s): R17 - Unspecified jaundice Status: Acute - Plan she does have some abdm distention/discomfort, would ask the primary team to address given her extensive GI hx. (2) Pancreatitis Qualifiers: Chronicity: acute Pancreatitis type: biliary Acute pancreatitis complication : unspecified Qualified Code(s): K85.10 - Biliary acute pancreatitis without necrosis or infection
[2018-03-09] MEDS: Famotidine 20 MG Tablet PO SCH (20:28)
[2018-03-09] MEDS: Enoxaparin Inj 40 MG/0.4 ML Syringe SQ SCH (23:26)
[2018-03-10 07:03] LABS: Albumin 2.2 g/dL (3.4-5.0); Anion Gap 10 meq/L (5-15); Aspartate Aminotransferase 34 U/L (15-37); Blood Urea Nitrogen 7 mg/dL (7-18); Calcium 8.7 mg/dL (8.5-10.1); Carbon Dioxide 28.1 meq/L (21.0-32.0); Chloride 104 meq/L (98-107); Glomerular Filtration Rate Greater Than 89 mL/min (>89); Glucose,Random 115 mg/dL (74-106); Lipase 979 U/L (73-393); Potassium 3.4 meq/L (3.5-5.1); Sodium 142 meq/L (136-145)
[2018-03-10 07:04] LABS: Alanine Aminotransferase 106 U/L (10-53)
[2018-03-10 07:06] LABS: Alkaline Phosphatase 185 U/L (45-117); Total Protein 6.9 g/dL (6.4-8.2)
[2018-03-10] MEDS: Famotidine 20 MG Tablet PO SCH ×2 (08:36→20:49)
[2018-03-10] MEDS: Senna/Docusate Sodium 8.6/50 MG Tablet PO SCH ×2 (08:37→20:50)
[2018-03-10] MEDS: Metoprolol Tartrate 25 MG Tablet PO SCH ×2 (08:37→20:49)
[2018-03-10] MEDS ORDERED: Lisinopril 5 MG Tablet PO SCH ×2 (09:00→11:04)
--- NOTE | 2018-03-10 10:06 | P.PNGI ---
Subjective Interval history: This is a reconsult for increase lipase levels. pt was seen by our services earlier and under went ERCP on 03/05 for ? choledocholithiasis, no stones found. Lipase went down but now has been steadily going up. Pt was suppose to go for cath today, discussed with MANI Sididqi to hold this pending results of CT. Pt is asymptomatic, no pain or N/V. <Julia Ruffin - Last Filed: 03/10/18 21:23> Physical Exam Vital signs: Vital Signs 03/09/18 16:00 03/09/18 20:00 03/09/18 21:02 Temperature 98 F Pulse Rate 69 80 69 Respiratory Rate 20 16 Blood Pressure 156/76 H Pulse Oximetry 94 L 03/10/18 00:00 03/10/18 04:00 03/10/18 08:00 Temperature 99.0 F 97.7 F 98.2 F Pulse Rate 78 63 62 Respiratory Rate 16 18 22 Blood Pressure 190/78 H 182/87 H 175/78 H Pulse Oximetry 95 97 96 03/10/18 12:00 Temperature 97.3 F L Pulse Rate 63 Respiratory Rate 20 Blood Pressure 171/89 H Pulse Oximetry 97 Intake & Output 03/09/18 03/10/18 03/10/18 18:59 06:59 18:59 Intake Total 600 / 600 Output Total 1800 / 1800 Balance 600 / 600 -1800 / -1800 Weight 97.3 kg Intake: Oral 600 / 600 Output: Urine 1800 / 1800 Other: # Voids 3 Date of Last Bowel Movement 03/09/18 03/10/18 03/10/18 # Bowel Movements 1 1 <Dhaval West - Last Filed: 03/10/18 14:48> Vital signs: Vital Signs 03/09/18 10:46 03/09/18 12:00 03/09/18 14:00 Temperature 98.3 F 97.3 F L Pulse Rate 62 77 Respiratory Rate 20 20 Blood Pressure 175/77 H 173/83 H Pulse Oximetry 98 95 95 03/09/18 16:00 03/09/18 20:00 03/09/18 21:02 Temperature 98 F Pulse Rate 69 80 69 Respiratory Rate 20 16 Blood Pressure 156/76 H Pulse Oximetry 94 L 03/10/18 00:00 03/10/18 04:00 03/10/18 08:00 Temperature 99.0 F 97.7 F Pulse Rate 78 63 Respiratory Rate 16 18 18 Blood Pressure 190/78 H 182/87 H Pulse Oximetry 95 97 Intake & Output 03/09/18 03/10/18 03/10/18 18:59 06:59 18:59 Intake Total 600 / 600 Output Total 1800 / 1800 Balance 600 / 600 -1800 / -1800 Weight 97.3 kg Intake: Oral 600 / 600 Output: Urine 1800 / 1800 Other: # Voids 3 Date of Last Bowel Movement 03/09/18 03/10/18 # Bowel Movements 1 1 - Constitutional no acute distress - Routine HEENT Exam Head: Present: normocephalic ENT: Present: mucous membranes moist - Routine Respiratory Exam Present: CTA bilaterally - Routine Cardiovascular Exam Present: RRR - Routine Abdominal Exam Present: soft, normoactive bowel sounds. Absent: tenderness, distended - Routine Skin Exam Present: dry. Absent: intact, cyanosis - Routine Neurological Exam Present: alert, oriented X3 <Julia Ruffin - Last Filed: 03/10/18 21:23> Results - Labs CBC & Chem 7: 03/09/18 03:58 03/10/18 05:00 Laboratory Results - last 24 hr 03/10/18 05:00 Sodium 142 Potassium 3.4 L Chloride 104 Carbon Dioxide 28.1 Anion Gap 10 BUN 7 Creatinine 0.56 Estimated GFR Greater than 89 Random Glucose 115 H Calcium 8.7 Total Bilirubin 0.8 AST 34 ALT 106 H Alkaline Phosphatase 185 H Total Protein 6.9 Albumin 2.2 L Lipase 979 H <Dhaval West - Last Filed: 03/10/18 14:48> - Labs CBC & Chem 7: 03/09/18 03:58 03/10/18 05:00 Laboratory Results - last 24 hr 03/10/18 05:00 Sodium 142 Potassium 3.4 L Chloride 104 Carbon Dioxide 28.1 Anion Gap 10 BUN 7 Creatinine 0.56 Estimated GFR Greater than 89 Random Glucose 115 H Calcium 8.7 Total Bilirubin 0.8 AST 34 ALT 106 H Alkaline Phosphatase 185 H Total Protein 6.9 Albumin 2.2 L Lipase 979 H <Julia Ruffin - Last Filed: 03/10/18 21:23> Assessment and Plan (1) Pancreatitis Status: Acute Code(s): K85.90 - Acute pancreatitis without necrosis or infection, unspecified (2) Obstruction of gallbladder Status: Acute Code(s): K82.0 - Obstruction of gallbladder (3) Acute pancreatitis Status: Acute Code(s): K85.90 - Acute pancreatitis without necrosis or infection, unspecified (4) Severe sepsis Status: Acute Code(s): A41.9 - Sepsis, unspecified organism; R65.20 - Severe sepsis without septic shock - Plan Seen and examined with [employer], Cardiac cath on hold due to worsening lipase. Pts only complaint is SOB and fatigue. CT abd/pelvis ordered. She tells me she sees Dr Renee as outpt. and has an appointment with him next week. Call placed to Dr Renee and left message for him per patients request. <Dhaval West - Last Filed: 03/10/18 14:48> (1) Pancreatitis Status: Acute Code(s): K85.90 - Acute pancreatitis without necrosis or infection, unspecified (2) Obstruction of gallbladder Status: Acute Code(s): K82.0 - Obstruction of gallbladder (3) Acute pancreatitis Status: Acute Code(s): K85.90 - Acute pancreatitis without necrosis or infection, unspecified (4) Severe sepsis Status: Acute Code(s): A41.9 - Sepsis, unspecified organism; R65.20 - Severe sepsis without septic shock - Plan - ? gall stones pancreatitis- s/p ERCP on 03/05/18 ---> Duodenal diverticulum, Mildly dilated common bile duct, possibly passed stone Lipase today is 979, has been steadily increasing. LFTs high but stable, non obstructive pattern Pt is asymptomatic with this - Elevated Troponin- Cardiac cath was planned today but on hold due to elevated lipase. Plan - NPO - CT to r/o pancreatitis or pseudocyst - Monitor labs - Hold off on cath pending results above - Supportive care - Pt seen and examined by Dr. West and myself and this note is written on his behalf. <Julia Ruffin - Last Filed: 03/10/18 21:23> <Dhaval West - Last Filed: 03/10/18 14:48> (1) Pancreatitis Qualifiers: Chronicity: acute Pancreatitis type: biliary Acute pancreatitis complication : unspecified Qualified Code(s): K85.10 - Biliary acute pancreatitis without necrosis or infection <Julia Ruffin - Last Filed: 03/10/18 21:23> (1) Pancreatitis Qualifiers: Chronicity: acute Pancreatitis type: biliary Acute pancreatitis complication : unspecified Qualified Code(s): K85.10 - Biliary acute pancreatitis without necrosis or infection
[2018-03-10] MEDS ORDERED: Diatrizoate Meglum/Diatrizoate Sod Liq 9 ML UDC PO ONE ×2 (10:49→11:45)
--- NOTE | 2018-03-10 11:06 | P.PN ---
Subjective Interval history: follow up for abd. pain and elevated trop: Right upper abdomen pain very minimal , no nausea, no vomiting. Denies any chest pain, wheezing has improved, yesterday she felt like she could not take a deep breath. No fever. Patient n.p.o. going for cardiac cath. Blood pressure elevated still, 170s-180s. Daughter at bedside. Physical Exam Vital signs: Vital Signs 03/09/18 12:00 03/09/18 14:00 03/09/18 16:00 Temperature 98.3 F 97.3 F L Pulse Rate 62 77 69 Respiratory Rate 20 20 Blood Pressure 175/77 H 173/83 H Pulse Oximetry 95 95 03/09/18 20:00 03/09/18 21:02 03/10/18 00:00 Temperature 98 F 99.0 F Pulse Rate 80 69 78 Respiratory Rate 20 16 16 Blood Pressure 156/76 H 190/78 H Pulse Oximetry 94 L 95 03/10/18 04:00 03/10/18 08:00 Temperature 97.7 F Pulse Rate 63 Respiratory Rate 18 18 Blood Pressure 182/87 H Pulse Oximetry 97 Intake & Output 03/09/18 03/10/18 03/10/18 18:59 06:59 18:59 Intake Total 600 / 600 Output Total 1800 / 1800 Balance 600 / 600 -1800 / -1800 Weight 97.3 kg Intake: Oral 600 / 600 Output: Urine 1800 / 1800 Other: # Voids 3 Date of Last Bowel Movement 03/09/18 03/10/18 # Bowel Movements 1 1 Narrative: GENERAL: Well-nourished, well-developed patient in no apparent distress. SKIN: Warm and dry. HEAD: Atraumatic. Normocephalic. EYES: Pupils equal and round. No scleral icterus. No injection or drainage. ENT: No nasal bleeding or discharge. Mucous membranes pink and moist. NECK: Trachea midline. No JVD. CARDIOVASCULAR: Regular rate and rhythm. RESPIRATORY: Essentially clear, slightly diminished at bases. No wheezing noted. GASTROINTESTINAL: Abdomen soft, non-tender, nondistended. Hepatic and splenic margins not palpable. MUSCULOSKELETAL: Extremities without clubbing, cyanosis, or edema. No obvious deformities. NEUROLOGICAL: Awake and alert. No obvious cranial nerve deficits. Motor grossly within normal limits. Five out of 5 muscle strength in the arms and legs. Normal speech. PSYCHIATRIC: Appropriate mood and affect; insight and judgment normal. Results - Labs CBC & Chem 7: 03/09/18 03:58 03/10/18 05:00 Laboratory Results - last 24 hr 03/10/18 05:00 Sodium 142 Potassium 3.4 L Chloride 104 Carbon Dioxide 28.1 Anion Gap 10 BUN 7 Creatinine 0.56 Estimated GFR Greater than 89 Random Glucose 115 H Calcium 8.7 Total Bilirubin 0.8 AST 34 ALT 106 H Alkaline Phosphatase 185 H Total Protein 6.9 Albumin 2.2 L Lipase 979 H Assessment and Plan - Assessment (1) Acute pancreatitis Code(s): K85.90 - Acute pancreatitis without necrosis or infection, unspecified Status: Acute (2) Non-ST elevation PR (NSTEMI) Code(s): I21.4 - Non-ST elevation (NSTEMI) myocardial infarction Status: Acute (3) Acute kidney insufficiency Code(s): N28.9 - Disorder of kidney and ureter, unspecified Status: Acute (4) Lactic acidosis Code(s): E87.2 - Acidosis Status: Acute (5) Hypertension Code(s): I10 - Essential (primary) hypertension Status: Chronic (6) Obstruction of gallbladder Code(s): K82.0 - Obstruction of gallbladder Status: Acute - Plan - Assessment/Plan Patient is a 72-year-old obese female with past medical history only significant for hypertension, and GI bleed from peptic ulcer, who presented to the emergency department at [place] for epigastric pain radiating to the right lower quadrant and to the back. Trop noted elevated as well. Acute pancreatitis -secondary to gallstone, post ERCP 03/05 Poss cholangitis-no evidence found on ERCP -appreciate GI input -Lipase trending up, 979 today. Right upper quadrant pain much more improved. Possible right secondary to ERCP. Discussed with GI, will need to rule out pancreatitis. Cardiac cath will need to be on hold. Lactic acidosis sepsis -s/p Zosyn, off abx now -WBC stable, no fever. -cultures negative Non-STEMI -troponin trending down s/p Nuclear stress text with finding of Slight to moderate ischemia anteroseptal wall on 03/07. -appreciate card input -2D echo with EF 75%. -no ASA 2/2 allergy -continue Metroprolol 25 mg po bid -Discussed with Dr. Senior about increasing lipase, cardiac cath on hold for now. Possibly will be rescheduled for Saturday. BRIA -received IVF, back to normal now HTN, has been poorly controlled -continue Lopressor -Blood pressure remains poorly controlled, will increase to lisinopril 10 mg p.o. daily. -Continue with clonidine as needed Wheezing, denies any hx of asthma. Resolved today. -continue with Duonebs PRN GI prophylaxis with Pepcid DVT prophylaxis with SCDs and Lovenox Replace K Follow labs in the morning d/w Laly Hilliard (GI) d/w RN, pt and daughter, CM (5) Hypertension Qualifiers: Hypertension type: essential hypertension Qualified Code(s): I10 - Essential (primary) hypertension
[2018-03-10] MEDS ORDERED: Lisinopril 5 MG Tablet PO ONE (11:45)
--- NOTE | 2018-03-10 12:05 | P.PNCA ---
Subjective Interval history: No events overnight Lipase increased so asked to hold off on cath for now for CT Physical Exam Vital signs: Vital Signs 03/09/18 14:00 03/09/18 16:00 03/09/18 20:00 Temperature 97.3 F L 98 F Pulse Rate 77 69 80 Respiratory Rate 20 20 Blood Pressure 173/83 H 156/76 H Pulse Oximetry 95 94 L 03/09/18 21:02 03/10/18 00:00 03/10/18 04:00 Temperature 99.0 F 97.7 F Pulse Rate 69 78 63 Respiratory Rate 16 16 18 Blood Pressure 190/78 H 182/87 H Pulse Oximetry 95 97 03/10/18 08:00 Temperature 98.2 F Pulse Rate Respiratory Rate 22 Blood Pressure 175/78 H Pulse Oximetry 96 Intake & Output 03/09/18 03/10/18 03/10/18 18:59 06:59 18:59 Intake Total 600 / 600 Output Total 1800 / 1800 Balance 600 / 600 -1800 / -1800 Weight 97.3 kg Intake: Oral 600 / 600 Output: Urine 1800 / 1800 Other: # Voids 3 Date of Last Bowel Movement 03/09/18 03/10/18 # Bowel Movements 1 1 Narrative: GENERAL: Well-nourished, well-developed patient in no apparent distress. SKIN: Warm and dry. HEAD: Atraumatic. Normocephalic. EYES: Pupils equal and round. No scleral icterus. No injection or drainage. ENT: No nasal bleeding or discharge. Mucous membranes pink and moist. NECK: Trachea midline. No JVD. CARDIOVASCULAR: Regular rate and rhythm. RESPIRATORY: Essentially clear, slightly diminished at bases. No wheezing noted. GASTROINTESTINAL: Abdomen soft, non-tender, nondistended. Hepatic and splenic margins not palpable. MUSCULOSKELETAL: Extremities without clubbing, cyanosis, or edema. No obvious deformities. NEUROLOGICAL: Awake and alert. No obvious cranial nerve deficits. Motor grossly within normal limits. Five out of 5 muscle strength in the arms and legs. Normal speech. PSYCHIATRIC: Appropriate mood and affect; insight and judgment normal. Assessment and Plan - Assessment (1) Elevated troponin I level Code(s): R74.8 - Abnormal levels of other serum enzymes Status: Acute (2) Pancreatitis Code(s): K85.90 - Acute pancreatitis without necrosis or infection, unspecified Status: Acute (3) Obstruction of gallbladder Code(s): K82.0 - Obstruction of gallbladder Status: Acute (4) Non-ST elevation [place] (NSTEMI) Code(s): I21.4 - Non-ST elevation (NSTEMI) myocardial infarction Status: Acute (5) Acute pancreatitis Code(s): K85.90 - Acute pancreatitis without necrosis or infection, unspecified Status: Acute (6) Severe sepsis Code(s): A41.9 - Sepsis, unspecified organism; R65.20 - Severe sepsis without septic shock Status: Acute (7) Acute kidney insufficiency Code(s): N28.9 - Disorder of kidney and ureter, unspecified Status: Acute (8) Lactic acidosis Code(s): E87.2 - Acidosis Status: Acute (9) Common bile duct dilatation Code(s): K83.8 - Other specified diseases of biliary tract Status: Acute (10) Jaundice Code(s): R17 - Unspecified jaundice Status: Acute - Plan 1) Acute gallstone pancreatitis ERCP, most likely passed the stone Lipase trending down until today back up 2) Elevated trop Most likely Type 2 due to overall illness Nuclear stress test showing possible ischemia of the anteroseptal wall Cath on hold for CT of the abdomen due to Lipase increasing Will plan on Tu or Wed depending on results of CT ASA allergy 3) EF 70%, moderate MR/AR (2) Pancreatitis Qualifiers: Chronicity: acute Pancreatitis type: biliary Acute pancreatitis complication : unspecified Qualified Code(s): K85.10 - Biliary acute pancreatitis without necrosis or infection
--- NOTE | 2018-03-10 18:44 | CT ---
EXAM DATE: 03/10/2018 6:15 PM EDT AGE/SEX: 72 years / Female INDICATIONS: Diffuse abdomen pain today. CLINICAL DATA: This is the patient's initial encounter. Patient reports that signs and symptoms have been present for 1 day and indicates a pain score of 7/10. MEDICAL/SURGICAL HISTORY: Gastroesophageal reflux disease. Hypertension. None. ORAL CONTRAST: Prescribed oral contrast ingested. RADIATION DOSE: 16.07 CTDI (mGy) COMPARISON: [facility], CT ABDOMEN & PELVIS W CONTRAST, 03/03/2018. . TECHNIQUE: Multiple contiguous axial images were obtained through the abdomen and pelvis following b olus infusion of 92 ml Omnipaque 350 (iohexol) nonionic water-soluble contrast as a single exam dos e. Prescribed oral contrast ingested. Using automated exposure control and adjustment of the mA and/ or kV according to patient size, radiation dose was kept as low as reasonably achievable to obtain op timal diagnostic quality images. DICOM format image data is available electronically for review and comparison. FINDINGS: Lower Lungs: There are minimal bilateral pleural effusions. There is suspected minimal atelectasis se en at the lung bases. Liver: The liver demonstrates diffuse decreased attenuation. No focal hepatic lesions are seen. The g allbladder is distended. Spleen: Homogeneous density without enlargement. Pancreas: There is induration of the fat surrounding the pancreas suspicious of the pancreatic body and tail. The induration extends into the root of mesentery. No focal fluid collection is seen. Kidneys: Normal in size and shape. No evidence of mass or hydronephrosis. Adrenal Glands: Unremarkable. Aorta: The aorta and proximal iliac vessels are grossly unremarkable without aneurysmal dilation. T here are scattered minimal atherosclerotic calcifications present. Bowel/Mesentery: Colonic diverticula are present. The appendix is normal. Abdominal Wall: Intact. Retroperitoneum: No evidence of adenopathy in the retrocrural, para-aortic, or deep pelvic regions. Bladder: Contours are smooth. Reproductive Organs: No abnormal masses or calcifications seen. Inguinal: The inguinal region is unremarkable without evidence of adenopathy. Bony Structures: There is degenerative change in the lumbar spine. CONCLUSION: 1. Induration surrounding the pancreas likely from acute pancreatitis. 2. Minimal bilateral pleural effusions with accompanying atelectasis. 3. Colonic diverticula. 4. Degenerative change in the lumbar spine. Electronically signed by: Dagoberto Fletcher MD 03/10/2018 6:42 PM EDT
[2018-03-10] MEDS: Acetaminophen 325 MG Tablet PO PRN (20:48)
[2018-03-10] MEDS: Enoxaparin Inj 40 MG/0.4 ML Syringe SQ SCH (20:50)
[2018-03-11 06:46] LABS: Baso % (Auto) 0.4 % (0.0-2.0); Eos # (Auto) 0.3 th/mm3 (0.0-0.4); Eos % (Auto) 3.2 % (0.0-4.0); Hematocrit 36.6 % (35.0-46.0); Hemoglobin 12.4 gm/dL (11.6-15.3); Lymph # (Auto) 1.3 th/mm3 (1.0-4.8); Lymph % (Auto) 13.7 % (9.0-44.0); Mean Corpuscular HGB Conc 33.9 % (32.0-36.0); Mean Corpuscular Hemoglobin 30.6 pg (27.0-34.0); Mean Corpuscular Volume 90.2 fL (80.0-100.0); Mean Platelet Volume 7.4 fL (7.0-11.0); Mono # (Auto) 0.6 th/mm3 (0.0-0.9); Mono % (Auto) 6.5 % (0.0-8.0); Neut # (Auto) 7.4 th/mm3 (1.8-7.7); Neut % (Auto) 76.2 % (16.0-70.0); Platelet Count 438 th/mm3 (150-450); Red Blood Count 4.06 mil/mm3 (4.00-5.30); Red Cell Distribution Width 14.7 % (11.6-17.2); White Blood Count 9.7 th/mm3 (4.0-11.0)
[2018-03-11 07:06] LABS: Alanine Aminotransferase 92 U/L (10-53); Albumin 2.5 g/dL (3.4-5.0); Anion Gap 11 meq/L (5-15); Aspartate Aminotransferase 32 U/L (15-37); Blood Urea Nitrogen 7 mg/dL (7-18); Calcium 8.9 mg/dL (8.5-10.1); Carbon Dioxide 28.4 meq/L (21.0-32.0); Chloride 103 meq/L (98-107); Glomerular Filtration Rate Greater Than 89 mL/min (>89); Glucose,Random 110 mg/dL (74-106); Lipase 948 U/L (73-393); Potassium 3.5 meq/L (3.5-5.1); Sodium 142 meq/L (136-145)
[2018-03-11 07:09] LABS: Alkaline Phosphatase 196 U/L (45-117); Total Protein 7.6 g/dL (6.4-8.2)
[2018-03-11] MEDS: Senna/Docusate Sodium 8.6/50 MG Tablet PO SCH ×2 (08:11→20:53)
[2018-03-11] MEDS: Acetaminophen 325 MG Tablet PO PRN ×2 (08:42→20:57)
[2018-03-11] MEDS: Famotidine 20 MG Tablet PO SCH ×2 (08:42→20:53)
[2018-03-11] MEDS: Metoprolol Tartrate 25 MG Tablet PO SCH ×2 (08:42→20:58)
[2018-03-11] MEDS: Lisinopril 5 MG Tablet PO SCH (08:43)
--- NOTE | 2018-03-11 09:45 | P.PNGI ---
Subjective Interval history: We were contacted yesterday to see this patient our our practice (she had told the doctors and staff, upon admission, that Dr. Renee is her penciller, but we were not contacted.) She has no pain, nausea, emesis. She's been given only clear liquids and is receiving no IV fluids. Radiologic imaging suggests pancreatitis, more prominent yesterday than before the ERCP (03/05/18.) Physical Exam Vital signs: Vital Signs 03/10/18 12:00 03/10/18 16:00 03/10/18 16:11 Temperature 97.3 F L 98.8 F Pulse Rate 64 73 69 Respiratory Rate 20 20 Blood Pressure 171/89 H 167/80 H Pulse Oximetry 97 95 03/10/18 20:00 03/10/18 21:42 03/11/18 00:00 Temperature 97.8 F 98.1 F Pulse Rate 85 77 78 Respiratory Rate 20 20 20 Blood Pressure 145/83 H 142/78 H Pulse Oximetry 97 95 03/11/18 04:00 03/11/18 06:00 Temperature 97.8 F Pulse Rate 68 84 Respiratory Rate 20 Blood Pressure 145/83 H Pulse Oximetry 97 Intake & Output 03/10/18 03/11/18 03/11/18 18:59 06:59 18:59 Intake Total 0 / 0 900 / 900 Output Total 1999 1400 / 1400 Balance -2000 / -2000 -500 / -500 Intake: Oral 0 / 0 900 / 900 Output: Urine 1999 1400 / 1400 Other: # Voids 1 Date of Last Bowel Movement 03/10/18 03/10/18 # Bowel Movements 2 - Constitutional no acute distress - Routine HEENT Exam Eye: Present: EOMI - Routine Respiratory Exam Present: CTA bilaterally - Routine Cardiovascular Exam Present: RRR - Routine Abdominal Exam Present: soft, normoactive bowel sounds - Detailed Abdominal Exam Comments: Non-tender. - Routine Neurological Exam Present: alert, oriented X3 - Routine Psychiatric Exam Present: normal affect, normal thought process Results - Labs CBC & Chem 7: 03/11/18 05:53 03/11/18 05:53 Laboratory Results - last 24 hr 03/11/18 03/11/18 05:53 05:53 WBC 9.7 RBC 4.06 Hgb 12.4 Hct 36.6 MCV 90.2 MCH 30.6 MCHC 33.9 RDW 14.7 Plt Count 438 D MPV 7.4 Neut % (Auto) 76.2 H Lymph % (Auto) 13.7 [place] % (Auto) 6.5 Eos % (Auto) 3.2 Baso % (Auto) 0.4 Neut # (Auto) 7.4 Lymph # (Auto) 1.3 [place] # (Auto) 0.6 Eos # (Auto) 0.3 Baso # (Auto) 0.0 WBC Differential . Differential Comment Auto diff final Sodium 142 Potassium 3.5 Chloride 103 Carbon Dioxide 28.4 Anion Gap 11 BUN 7 Creatinine 0.60 Estimated GFR Greater than 89 Random Glucose 110 H Calcium 8.9 Total Bilirubin 0.9 AST 32 ALT 92 H Alkaline Phosphatase 196 H Total Protein 7.6 D Albumin 2.5 L Lipase 948 H - Imaging Impressions Abdomen/Pelvis CT 03/10/18 00:00 CONCLUSION: 1. Induration surrounding the pancreas likely from acute pancreatitis. 2. Minimal bilateral pleural effusions with accompanying atelectasis. 3. Colonic diverticula. 4. Degenerative change in the lumbar spine. Assessment and Plan - Plan Pancreatitis, upon admission with the suspicion of having passed a small stone ( as suggested my MR evaluation, though no stone was noted at ERCP.) Lipase was noted to be elevated 5 days after the ERCP with CT showing more prominent pancreatitis. She is asymptomatic at this time. We'll start a low fat/low sodium diet and IV fluids. OK to proceed with cardiac cath study from the GI standpoint. She has had occasional RUQ/back/shoulder discomfort over the years. There is no known family history of gallbladder disease. We discussed scheduling a HIDA scan once the current inflammatory process subsides.
--- NOTE | 2018-03-11 12:05 | P.PNCA ---
Subjective Interval history: No events overnight No complaints Physical Exam Vital signs: Vital Signs 03/10/18 16:00 03/10/18 16:11 03/10/18 20:00 Temperature 98.8 F 97.8 F Pulse Rate 73 69 85 Respiratory Rate 20 20 Blood Pressure 167/80 H 145/83 H Pulse Oximetry 95 97 03/10/18 21:42 03/11/18 00:00 03/11/18 04:00 Temperature 98.1 F Pulse Rate 77 78 68 Respiratory Rate 20 20 Blood Pressure 142/78 H Pulse Oximetry 95 03/11/18 06:00 03/11/18 07:44 03/11/18 08:00 Temperature 97.8 F 97.9 F Pulse Rate 84 71 72 Respiratory Rate 20 18 Blood Pressure 145/83 H 154/64 H Pulse Oximetry 97 96 Intake & Output 03/10/18 03/11/18 03/11/18 18:59 06:59 18:59 Intake Total 0 / 0 900 / 900 Output Total 1999 1400 / 1400 Balance -2000 / -2000 -500 / -500 Intake: Oral 0 / 0 900 / 900 Output: Urine 1999 1400 / 1400 Other: # Voids 1 Date of Last Bowel Movement 03/10/18 03/10/18 # Bowel Movements 2 Narrative: GENERAL: Well-nourished, well-developed patient in no apparent distress. SKIN: Warm and dry. HEAD: Atraumatic. Normocephalic. EYES: Pupils equal and round. No scleral icterus. No injection or drainage. ENT: No nasal bleeding or discharge. Mucous membranes pink and moist. NECK: Trachea midline. No JVD. CARDIOVASCULAR: Regular rate and rhythm. RESPIRATORY: Essentially clear, slightly diminished at bases. No wheezing noted. GASTROINTESTINAL: Abdomen soft, non-tender, nondistended. Hepatic and splenic margins not palpable. MUSCULOSKELETAL: Extremities without clubbing, cyanosis, or edema. No obvious deformities. NEUROLOGICAL: Awake and alert. No obvious cranial nerve deficits. Motor grossly within normal limits. Five out of 5 muscle strength in the arms and legs. Normal speech. PSYCHIATRIC: Appropriate mood and affect; insight and judgment normal. Assessment and Plan - Assessment (1) Elevated troponin I level Code(s): R74.8 - Abnormal levels of other serum enzymes Status: Acute (2) Pancreatitis Code(s): K85.90 - Acute pancreatitis without necrosis or infection, unspecified Status: Acute (3) Obstruction of gallbladder Code(s): K82.0 - Obstruction of gallbladder Status: Acute (4) Non-ST elevation [place] (NSTEMI) Code(s): I21.4 - Non-ST elevation (NSTEMI) myocardial infarction Status: Acute (5) Acute pancreatitis Code(s): K85.90 - Acute pancreatitis without necrosis or infection, unspecified Status: Acute (6) Severe sepsis Code(s): A41.9 - Sepsis, unspecified organism; R65.20 - Severe sepsis without septic shock Status: Acute (7) Acute kidney insufficiency Code(s): N28.9 - Disorder of kidney and ureter, unspecified Status: Acute (8) Lactic acidosis Code(s): E87.2 - Acidosis Status: Acute (9) Common bile duct dilatation Code(s): K83.8 - Other specified diseases of biliary tract Status: Acute (10) Jaundice Code(s): R17 - Unspecified jaundice Status: Acute - Plan 1) Acute gallstone pancreatitis ERCP, most likely passed the stone Lipase still elevated Evaluated by GI, ok to proceed with cath 2) Elevated trop Most likely Type 2 due to overall illness Nuclear stress test showing possible ischemia of the anteroseptal wall Plan on cardiac cath tomorrow afternoon Light breakfast in the morning ASA allergy 3) EF 70%, moderate MR/AR (2) Pancreatitis Qualifiers: Chronicity: acute Pancreatitis type: biliary Acute pancreatitis complication : unspecified Qualified Code(s): K85.10 - Biliary acute pancreatitis without necrosis or infection
[2018-03-11] MEDS: Dextrose 5%/Lactated Ringer's 1,000 ML IV.CONT SCH ×2 (13:38→23:50)
--- NOTE | 2018-03-11 14:15 | P.PNIM ---
Subjective Interval history: The pt was feeling well. She said she is ready for the procedure tomorrow. She wishes her abdominal pain would go away. She is tolerating her diet. She has been ambulating. Physical Exam Vital signs: Vital Signs 03/10/18 16:00 03/10/18 16:11 03/10/18 20:00 Temperature 98.8 F 97.8 F Pulse Rate 73 69 85 Respiratory Rate 20 20 Blood Pressure 167/80 H 145/83 H Pulse Oximetry 95 97 03/10/18 21:42 03/11/18 00:00 03/11/18 04:00 Temperature 98.1 F Pulse Rate 77 78 68 Respiratory Rate 20 20 Blood Pressure 142/78 H Pulse Oximetry 95 03/11/18 06:00 03/11/18 07:44 03/11/18 08:00 Temperature 97.8 F 97.9 F Pulse Rate 84 71 72 Respiratory Rate 20 18 Blood Pressure 145/83 H 154/64 H Pulse Oximetry 97 96 03/11/18 12:00 03/11/18 12:30 Temperature 97.8 F Pulse Rate 62 52 L Respiratory Rate 18 Blood Pressure 138/89 Pulse Oximetry 96 Intake & Output 03/10/18 03/11/18 03/11/18 18:59 06:59 18:59 Intake Total 0 / 0 900 / 900 Output Total 1999 1400 / 1400 Balance -2000 / -2000 -500 / -500 Intake: Oral 0 / 0 900 / 900 Output: Urine 1999 1400 / 1400 Other: # Voids 1 Date of Last Bowel Movement 03/10/18 03/10/18 03/10/18 # Bowel Movements 2 Narrative: GENERAL: Well-nourished, well-developed patient in no apparent distress. SKIN: Warm and dry. HEAD: Atraumatic. Normocephalic. EYES: Pupils equal and round. No scleral icterus. No injection or drainage. ENT: No nasal bleeding or discharge. Mucous membranes pink and moist. NECK: Trachea midline. No JVD. CARDIOVASCULAR: Regular rate and rhythm. RESPIRATORY: Essentially clear, slightly diminished at bases. No wheezing noted. GASTROINTESTINAL: Abdomen soft, mild epigastric tenderness, nondistended. Hepatic and splenic margins not palpable. MUSCULOSKELETAL: Extremities without clubbing, cyanosis, or edema. No obvious deformities. NEUROLOGICAL: Awake and alert. No obvious cranial nerve deficits. Motor grossly within normal limits. Five out of 5 muscle strength in the arms and legs. Normal speech. PSYCHIATRIC: Appropriate mood and affect; insight and judgment normal. Results - Labs CBC & Chem 7: 03/11/18 05:53 03/11/18 05:53 Laboratory Results - last 24 hr 03/11/18 03/11/18 05:53 05:53 WBC 9.7 RBC 4.06 Hgb 12.4 Hct 36.6 MCV 90.2 MCH 30.6 MCHC 33.9 RDW 14.7 Plt Count 438 D MPV 7.4 Neut % (Auto) 76.2 H Lymph % (Auto) 13.7 [place] % (Auto) 6.5 Eos % (Auto) 3.2 Baso % (Auto) 0.4 Neut # (Auto) 7.4 Lymph # (Auto) 1.3 [place] # (Auto) 0.6 Eos # (Auto) 0.3 Baso # (Auto) 0.0 WBC Differential . Differential Comment Auto diff final Sodium 142 Potassium 3.5 Chloride 103 Carbon Dioxide 28.4 Anion Gap 11 BUN 7 Creatinine 0.60 Estimated GFR Greater than 89 Random Glucose 110 H Calcium 8.9 Total Bilirubin 0.9 AST 32 ALT 92 H Alkaline Phosphatase 196 H Total Protein 7.6 D Albumin 2.5 L Lipase 948 H - Imaging Impressions Abdomen/Pelvis CT 03/10/18 00:00 CONCLUSION: 1. Induration surrounding the pancreas likely from acute pancreatitis. 2. Minimal bilateral pleural effusions with accompanying atelectasis. 3. Colonic diverticula. 4. Degenerative change in the lumbar spine. Assessment and Plan - Assessment (1) Acute pancreatitis Code(s): K85.90 - Acute pancreatitis without necrosis or infection, unspecified Status: Acute (2) Non-ST elevation [place] (NSTEMI) Code(s): I21.4 - Non-ST elevation (NSTEMI) myocardial infarction Status: Acute (3) Acute kidney insufficiency Code(s): N28.9 - Disorder of kidney and ureter, unspecified Status: Acute (4) Lactic acidosis Code(s): E87.2 - Acidosis Status: Acute (5) Hypertension Code(s): I10 - Essential (primary) hypertension Status: Chronic (6) Obstruction of gallbladder Code(s): K82.0 - Obstruction of gallbladder Status: Acute - Plan Patient is a 72-year-old obese female with past medical history only significant for hypertension, and GI bleed from peptic ulcer, who presented to the emergency department at [place] for epigastric pain radiating to the right lower quadrant and to the back. Troponin was found to be elevated. Acute pancreatitis -secondary to gallstone, status post ERCP 03/05 No evidence of cholangitis found on ERCP -appreciate GI input. Possible HIDA scan in the future. Lactic acidosis Sepsis -s/p Zosyn. -WBC stable, no fever. -cultures negative. Non-STEMI -troponin trending down s/p Nuclear stress text with finding of slight to moderate ischemia anteroseptal wall on 03/07. -appreciate card input. Cath planned for tomorrow. -2D echo with EF 75%. -no ASA 2/2 allergy -continue metoprolol HTN Improving. -continue Lopressor and lisinopril and adjust as needed. -Continue with clonidine as needed Wheezing, denies any hx of asthma -continue with Duonebs PRN Hypokalemia S/t decreased PO intake. -replete and monitor. GI prophylaxis with Pepcid DVT prophylaxis with SCDs and Lovenox (5) Hypertension Qualifiers: Hypertension type: essential hypertension Qualified Code(s): I10 - Essential (primary) hypertension
[2018-03-11] MEDS: Enoxaparin Inj 40 MG/0.4 ML Syringe SQ SCH (20:53)
[2018-03-12 06:15] LABS: Alanine Aminotransferase 74 U/L (10-53); Anion Gap 12 meq/L (5-15); Aspartate Aminotransferase 28 U/L (15-37); Blood Urea Nitrogen 7 mg/dL (7-18); Carbon Dioxide 25.5 meq/L (21.0-32.0); Chloride 104 meq/L (98-107); Glomerular Filtration Rate Greater Than 89 mL/min (>89); Glucose,Random 121 mg/dL (74-106); Lipase 1014 U/L (73-393); Magnesium 2.3 mg/dL (1.5-2.5); Potassium 3.3 meq/L (3.5-5.1); Sodium 141 meq/L (136-145)
[2018-03-12 06:18] LABS: Alkaline Phosphatase 184 U/L (45-117); Total Protein 7.6 g/dL (6.4-8.2)
[2018-03-12 06:26] LABS: Baso # (Auto) 0.1 th/mm3 (0.0-0.2); Baso % (Auto) 0.7 % (0.0-2.0); Eos # (Auto) 0.3 th/mm3 (0.0-0.4); Eos % (Auto) 4.3 % (0.0-4.0); Hematocrit 37.2 % (35.0-46.0); Hemoglobin 12.8 gm/dL (11.6-15.3); Lymph # (Auto) 1.6 th/mm3 (1.0-4.8); Lymph % (Auto) 21.6 % (9.0-44.0); Mean Corpuscular HGB Conc 34.4 % (32.0-36.0); Mean Corpuscular Hemoglobin 31.3 pg (27.0-34.0); Mean Corpuscular Volume 90.9 fL (80.0-100.0); Mean Platelet Volume 7.6 fL (7.0-11.0); Mono # (Auto) 0.7 th/mm3 (0.0-0.9); Mono % (Auto) 9.1 % (0.0-8.0); Neut # (Auto) 4.7 th/mm3 (1.8-7.7); Neut % (Auto) 64.3 % (16.0-70.0); Platelet Count 433 th/mm3 (150-450); Red Blood Count 4.09 mil/mm3 (4.00-5.30); Red Cell Distribution Width 14.3 % (11.6-17.2); White Blood Count 7.3 th/mm3 (4.0-11.0)
[2018-03-12 06:32] LABS: Albumin 2.3 g/dL (3.4-5.0)
[2018-03-12] MEDS: Lisinopril 5 MG Tablet PO SCH (09:19)
[2018-03-12] MEDS: Dextrose 5%/Lactated Ringer's 1,000 ML IV.CONT SCH ×3 (09:20→21:55)
[2018-03-12] MEDS: Senna/Docusate Sodium 8.6/50 MG Tablet PO SCH ×2 (09:20→20:38)
[2018-03-12] MEDS: Metoprolol Tartrate 25 MG Tablet PO SCH ×2 (09:20→20:38)
[2018-03-12] MEDS: Famotidine 20 MG Tablet PO SCH ×2 (09:20→20:38)
--- NOTE | 2018-03-12 10:49 | P.PNGI ---
Subjective Interval history: Alert NAd mild abdominal pain going for cardiac cath for nonst FL elevated troponins s/p ERCP possible post procedure pancreatitis as well Physical Exam Vital signs: Vital Signs 03/11/18 12:00 03/11/18 12:30 03/11/18 16:00 Temperature 97.8 F 98.0 F Pulse Rate 62 52 L 60 Respiratory Rate 18 18 Blood Pressure 138/89 148/62 H Pulse Oximetry 96 98 03/11/18 20:00 03/12/18 00:00 03/12/18 04:00 Temperature 98.0 F 97.9 F Pulse Rate 70 76 65 Respiratory Rate 18 18 Blood Pressure 136/70 138/68 Pulse Oximetry 95 95 03/12/18 08:00 03/12/18 08:11 Temperature 98.5 F Pulse Rate 62 62 Respiratory Rate 18 Blood Pressure 122/96 H Pulse Oximetry 93 L Intake & Output 03/11/18 03/12/18 03/12/18 18:59 06:59 18:59 Intake Total 280 / 280 1000 / 1000 1000 / 1000 Balance 280 / 280 1000 / 1000 1000 / 1000 Weight 97.8 kg Intake: IV 1000 / 1000 1000 / 1000 D5W/LR Inj 1,000 ML @ 100 mls/ 1000 / 1000 1000 / 1000 hr IV.CONT .Q10H MIGUEL Rx#: [id number] Oral 280 / 280 0 / 0 Other: # Voids 4 4 Date of Last Bowel Movement 03/10/18 03/10/18 03/10/18 # Bowel Movements 2 - Constitutional no acute distress - Routine HEENT Exam Head: Present: normocephalic ENT: Present: mucous membranes moist - Routine Cardiovascular Exam Present: S1, S2 - Routine Abdominal Exam Present: soft, normoactive bowel sounds, tenderness Results - Labs CBC & Chem 7: 03/12/18 04:20 03/12/18 04:20 Laboratory Results - last 24 hr 03/12/18 03/12/18 04:20 04:20 WBC 7.3 RBC 4.09 Hgb 12.8 Hct 37.2 MCV 90.9 MCH 31.3 MCHC 34.4 RDW 14.3 Plt Count 433 MPV 7.6 Neut % (Auto) 64.3 Lymph % (Auto) 21.6 [place] % (Auto) 9.1 H Eos % (Auto) 4.3 H Baso % (Auto) 0.7 Neut # (Auto) 4.7 Lymph # (Auto) 1.6 [place] # (Auto) 0.7 Eos # (Auto) 0.3 Baso # (Auto) 0.1 WBC Differential . Differential Comment Auto diff final Sodium 141 Potassium 3.3 L Chloride 104 Carbon Dioxide 25.5 Anion Gap 12 BUN 7 Creatinine 0.59 Estimated GFR Greater than 89 Random Glucose 121 H Calcium 9.0 Magnesium 2.3 Total Bilirubin 1.0 Direct Bilirubin 0.3 H Indirect Bilirubin 0.7 AST 28 ALT 74 H Alkaline Phosphatase 184 H Total Protein 7.6 Albumin 2.3 L Lipase 1014 H Assessment and Plan (1) Acute pancreatitis Status: Acute Code(s): K85.90 - Acute pancreatitis without necrosis or infection, unspecified (2) Elevated troponin I level Status: Acute Code(s): R74.8 - Abnormal levels of other serum enzymes (3) Non-ST elevation FL (NSTEMI) Status: Acute Code(s): I21.4 - Non-ST elevation (NSTEMI) myocardial infarction - Plan Plan continue present therapy hoprfully pancreatitis will slowly improve ....will f/u after cardiac cath procedure and hopefully advance her diet ,, discussed w pt and her daughter.
[2018-03-12] MEDS: Acetaminophen 325 MG Tablet PO PRN ×2 (12:06→22:09)
--- NOTE | 2018-03-12 14:31 | P.PNIM ---
Subjective Interval history: The patient was waiting to go for catheterization. She said she was very hungry. She wanted water. She had no acute concerns. She denied any abdominal pain. Discussed with nursing. Physical Exam Vital signs: Vital Signs 03/11/18 16:00 03/11/18 20:00 03/12/18 00:00 Temperature 98.0 F 98.0 F Pulse Rate 60 70 76 Respiratory Rate 18 18 Blood Pressure 148/62 H 136/70 Pulse Oximetry 98 95 03/12/18 04:00 03/12/18 08:00 03/12/18 08:11 Temperature 97.9 F 98.5 F Pulse Rate 65 62 62 Respiratory Rate 18 18 Blood Pressure 138/68 122/96 H Pulse Oximetry 95 93 L 03/12/18 12:00 Temperature 98.7 F Pulse Rate 64 Respiratory Rate 18 Blood Pressure 170/80 H Pulse Oximetry 95 Intake & Output 03/11/18 03/12/18 03/12/18 18:59 06:59 18:59 Intake Total 280 / 280 1000 / 1000 1000 / 1000 Balance 280 / 280 1000 / 1000 1000 / 1000 Weight 97.8 kg Intake: IV 1000 / 1000 1000 / 1000 D5W/LR Inj 1,000 ML @ 100 mls/ 1000 / 1000 1000 / 1000 hr IV.CONT .Q10H MIGUEL Rx#: [id number] Oral 280 / 280 0 / 0 Other: # Voids 4 4 Date of Last Bowel Movement 03/10/18 03/10/18 03/10/18 # Bowel Movements 2 Narrative: GENERAL: Well-nourished, well-developed patient in no apparent distress. SKIN: Warm and dry. HEAD: Atraumatic. Normocephalic. EYES: Pupils equal and round. No scleral icterus. No injection or drainage. ENT: No nasal bleeding or discharge. Mucous membranes pink and moist. NECK: Trachea midline. No JVD. CARDIOVASCULAR: Regular rate and rhythm. RESPIRATORY: Essentially clear, slightly diminished at bases. No wheezing noted. GASTROINTESTINAL: Abdomen soft, no tenderness, nondistended. Hepatic and splenic margins not palpable. MUSCULOSKELETAL: Extremities without clubbing, cyanosis, or edema. No obvious deformities. NEUROLOGICAL: Awake and alert. No obvious cranial nerve deficits. Motor grossly within normal limits. Five out of 5 muscle strength in the arms and legs. Normal speech. PSYCHIATRIC: Appropriate mood and affect; insight and judgment normal. Results - Labs CBC & Chem 7: 03/12/18 04:20 03/12/18 04:20 Laboratory Results - last 24 hr 03/12/18 03/12/18 04:20 04:20 WBC 7.3 RBC 4.09 Hgb 12.8 Hct 37.2 MCV 90.9 MCH 31.3 MCHC 34.4 RDW 14.3 Plt Count 433 MPV 7.6 Neut % (Auto) 64.3 Lymph % (Auto) 21.6 [place] % (Auto) 9.1 H Eos % (Auto) 4.3 H Baso % (Auto) 0.7 Neut # (Auto) 4.7 Lymph # (Auto) 1.6 [place] # (Auto) 0.7 Eos # (Auto) 0.3 Baso # (Auto) 0.1 WBC Differential . Differential Comment Auto diff final Sodium 141 Potassium 3.3 L Chloride 104 Carbon Dioxide 25.5 Anion Gap 12 BUN 7 Creatinine 0.59 Estimated GFR Greater than 89 Random Glucose 121 H Calcium 9.0 Magnesium 2.3 Total Bilirubin 1.0 Direct Bilirubin 0.3 H Indirect Bilirubin 0.7 AST 28 ALT 74 H Alkaline Phosphatase 184 H Total Protein 7.6 Albumin 2.3 L Lipase 1014 H Assessment and Plan - Assessment (1) Acute pancreatitis Code(s): K85.90 - Acute pancreatitis without necrosis or infection, unspecified Status: Acute (2) Non-ST elevation [place] (NSTEMI) Code(s): I21.4 - Non-ST elevation (NSTEMI) myocardial infarction Status: Acute (3) Acute kidney insufficiency Code(s): N28.9 - Disorder of kidney and ureter, unspecified Status: Acute (4) Lactic acidosis Code(s): E87.2 - Acidosis Status: Acute (5) Hypertension Code(s): I10 - Essential (primary) hypertension Status: Chronic (6) Obstruction of gallbladder Code(s): K82.0 - Obstruction of gallbladder Status: Acute - Plan Patient is a 72-year-old obese female with past medical history only significant for hypertension, and GI bleed from peptic ulcer, who presented to the emergency department at [facility] for epigastric pain radiating to the right lower quadrant and to the back. Troponin was found to be elevated. Acute pancreatitis -secondary to gallstone, status post ERCP 03/05 No evidence of cholangitis found on ERCP. -appreciate GI input. Possible HIDA scan in the future. -continue to follow lipase. Still elevated. Lactic acidosis Sepsis -s/p Zosyn. -WBC stable, no fever. -cultures negative. Non-STEMI -troponin trending down s/p Nuclear stress text with finding of slight to moderate ischemia anteroseptal wall on 03/07. -appreciate card input. Cath planned for later today. -2D echo with EF 75%. -no ASA 2/2 allergy -continue metoprolol HTN Improving. -continue Lopressor and lisinopril and adjust as needed. -Continue with clonidine as needed Wheezing, denies any hx of asthma -continue with Duonebs PRN Hypokalemia S/t decreased PO intake. -replete and monitor. GI prophylaxis with Pepcid DVT prophylaxis with SCDs and Lovenox (5) Hypertension Qualifiers: Hypertension type: essential hypertension Qualified Code(s): I10 - Essential (primary) hypertension
[2018-03-12] MEDS ORDERED: Heparin 10,000 UNITS/10 ML Vial (for IV use) ONE (15:33)
[2018-03-12] MEDS ORDERED: fentaNYL Citrate Inj 100 MCG/2 ML Ampul ONE (15:33)
[2018-03-12] MEDS ORDERED: Heparin/NS PF Inj 1,000 ML ONE (15:33)
[2018-03-12] MEDS ORDERED: Labetalol HCl Inj 100 MG/20 ML Vial ONE (17:09)
--- NOTE | 2018-03-12 17:37 | CATHPROC ---
[facility] HIS Report Study Information Study Number Admission Scheduled Start Study Start [id number] Mar 03 2018 9:44PM 03/12/2018 Mar 12 2018 3:23PM [facility] Cardiac Catheterization Admit Source Facility Department Emergency department [facility] - Relay Dispatcher Physician and Clinical Staff Initial Sedrick Prabhakar Bonsai Tender Lynn Duran,OSMAN Bonsai Tender Kavita Lees,OSMAN Recorder Leilani Dillon,RT(R) Scrub Jan AllisonRT(R) Procedures Performed Procedure Location (Site) Vessel Name Coronary Angiograms LCA Left Coronary Coronary Angiograms RCA Right Coronary L Heart Cath Wire insertion Fem Art (right) Femoral Art Wire insertion Radial (right) Radial Art. Equipment Time Sales Department Supervisor Description Size Mfg Part Number Used/Scraped TRANSDUCER, TRUWAVE [id number] 15:34 [employer] * Used W/LANCK *[id number] INTRODUCER SET, 16:39 [employer] FR 5 [id number] *[id number] Used MICROPUNCTURE STIFF 534-545T *[id number] 534-548T *6355490 534-620T *0805017 534-521T *1413302 534-621T *2075672 534-542T *[id number] 17:21 DAIG/[employer]. DAR[employer] ANGIOSEAL, FR6 VIP FR 6 Used *[id number] 15:34 [email or web address] BLANKET,WARM AIR CCL * Used *[id number] 15:34 [email or web address] PACK, CCL CUSTOM * Used *[id number] 15:34 [email or web address] SUPPORT, ARTERIAL ADULT 49148 *[id number] Used [id number] 15:53 [employer] JL 3.5 DXTERITY CATHETER FR 5 Used *[id number] 16:06 MEDTRONIC/AVE EBU 3.5 Z2 GUIDE CATHETER FR 6 Used *[id number] BAND, RADIAL COMPRESSION TR [id number] 17:23 [employer] MEDICAL 24CM Used SHORT 24 *[id number] 16:06 [employer] MEDICAL PACK, ANGIOPLASTY * [id number] Used [id number] 15:34 [employer] MEDICAL WIRE, EXCHANGE 260CM 3MMJ 260CM Used *[id number] 15:34 NAMIC MANIFOLD, 4 PORT * Used *[id number] 15:34 [employer] OMNIPAQUE, 350 MG, 150ML 150ML [id number] Used [id number] 16:39 TERUM[employer] MEDICAL SHEATH, FR6 TERUMO (10CM) FR 6 Used *[id number] SHEATH, FR6 TRANSRADIAL [id number] 15:34 [employer]UM[employer] MEDICAL FR 6 Used SLENDER 10CM *[id number] 16:07 [employer] PRIME WIRE, VERRATA 185CM 185CM Used *[id number] Equipment Model, Serial, Lot Number and Expiration Data Description Model Number Serial Number Lot Number Expiration Date ANGIOSEAL, FR6 VIP [id number] 08-14-2018 INTRODUCER SET, [id number] 01-28-2021 MICROPUNCTURE STIFF PACK, ANGIOPLASTY [id number] 07-14-2020 PRIME WIRE, VERRATA 185CM [id number] 12-12-2020 History: Current Medications Medication Dosage/Unit Route Frequency Last Date/Time Taken Beta Rivera LISINOPRIL LOVENOX ASA History: Allergies Allergy Reaction hydrocodone Nausea/Vomiting acetaminophen Nausea/Vomiting naproxen Swelling of Lip/Tongue/Throat promethazine Palpitations meperidine Palpitations History: Risk Factors Family History of Hypertension Dyslipidemia Previous IA Previous Heart Failure Premature CAD Yes No No No No Prior Valve Prior PCI Prior CABG Surgery No No No Cerebrovascular Peripheral Artery Chronic Lung On Dialysis Diabetes Disease Disease Disease No No No No No History: Stress Tests Stress or Imaging Studies Performed Yes Standard Exercise Stress Test No Stress Echo No Stress Test SPECT Stress Test SPECT Result Stress Test SPECT Ischemia Risk/Extent Yes Positive Intermediate Stress Test CMR No Cardiac CTA Coronary Calcium Score No No History: Other Disease Selection Items Gerd HTN History: Other Current Smoker No Labs Hgb (g/dl) Hct (%) WBC (l/cumm) Platelets (thousands) 11.60-17.00 35.00-51.00 4.00-11.00 150.00-450.00 12.8 37.2 7.3 434 Glucose (mg/dl) BUN (mg/dl) Creatinine (mg/dl) BUN:Creatinine (1:x) 74.00-106.00 7.00-18.00 0.50-1.30 10.00-20.00 121 7 0.5 14 Na (meq/l) K (meq/l) 136.00-145.00 3.50-5.10 141 3.3 Troponin I (ng/ml) CPK (u/l) CPK-MB (ng/ML) 0.02-0.05 26.00-308.00 0.50-3.60 1.43 135 8.7 Medication Medication Total Dose (Bolus/Oral) Medication Total Dosage/Unit 1% XYLOCAINE 25 mL FENTANYL 50 mcg HEPARIN 6000 units LABETOLOL 10 mg RADIAL COCKTAIL 5 mL (Bolus) VERSED 1 mg Medications (Bolus/Oral) Medication Time Given Dosage/Unit Administered By Reason VERSED 03/12/2018 3:50:23 PM 0.5 mg Adamy, Lynn 0.5 mg VERSED given in lab by Lynn Duran RN in Right Forearm via Peripheral IV. Ordered by Sedrick Shelby FENTANYL 03/12/2018 3:51:05 PM 25 mcg Adamy, Lynn 25 mcg FENTANYL given in lab by Lynn Duran RN in Right Forearm via Peripheral IV. Ordered by Sedrick Hernandez 1% XYLOCAINE 03/12/2018 3:51:47 PM 5 mL Sedrick Senior 5 mL 1% XYLOCAINE given in lab by Sedrick Senior in Right Radial via Subcutaneous. RADIAL COCKTAIL 03/12/2018 3:54:55 PM 5 mL (Bolus) Sedrick Senior 5 mL (Bolus) RADIAL COCKTAIL given in lab by Sedrick Senior in Right Radial via Radial. Using [S olution Name]. Reason: Ntg 200mcg Verapamil 2.5mg Heparin 4000U. VERSED 03/12/2018 4:28:40 PM 0.5 mg Butchy, Lynn 0.5 mg VERSED given in lab by Lynn Duran RN in Right Forearm via Peripheral IV. Ordered by Sedrick Shelby FENTANYL 03/12/2018 4:29:05 PM 25 mcg Butchy, Lynn 25 mcg FENTANYL given in lab by Lynn Duran RN in Right Forearm via Peripheral IV. Ordered by Sedrick Hernandez 1% XYLOCAINE 03/12/2018 4:43:09 PM 20 mL Sedrick Senior 20 mL 1% XYLOCAINE given in lab by Sedrick Senior in Right Groin via Subcutaneous. Ordered by Sedrick Hernandez LABETOLOL 03/12/2018 5:11:06 PM 10 mg Largo, Kavita 10 mg LABETOLOL given in lab by Kavita Lees RN in Right Forearm via Peripheral IV. Ordered by Sedrick Hernandez HEPARIN 03/12/2018 5:13:15 PM 6000 units Kavita Lees 6000 units HEPARIN given in lab by Kavita Lees RN in Right Forearm via Peripheral IV. Ordered by Sedrick Senior Medication (Drip) Medication Time Given Dosage/Unit Concentration/Unit Diluent (ml) Solution IV Solutions 03/12/2018 3:27:28 PM 50 mL (IV) NaCl .9 IV Solutions given in lab by Lynn Duran RN in Right Forearm via Peripheral IV. Pump/Drip Flow u sing NaCl .9. Initial Case Assessment Cardiovascular Edema Present Skin color Skin None Normal Warm Dry Circulatory - Right Pulses Dorsalis Pedis Femoral 2 2 Scale (0,1,2,3,4,d) Circulatory - Left Pulses Dorsalis Pedis Femoral 2 2 Scale (0,1,2,3,4,d) Neurological State Oriented to time-place- Alert Moves all extremities person Chronological Log Time Study Chronological Log 15:25:01 Patient arrived via Bed. 15:25:03 Patient Name, D.O.B, / Armband Verified By R.N. 15:27:13 Consent signed by the physician and the patient and verified by the Relay Dispatcher staff. 15:27:15 Pre-op and post- op instructions given; patient acknowledges understanding of instructions. 15:27:22 Allens test performed on the right radial and ulnar artery. 15:27:23 Patient has been NPO for More than 6Hrs. 15:27:24 Skin Breakdown- bruising on RLQ 15:27:24 Patient Warmer Placed on the Table. 15:27:26 Sebas Prominences Protected 15:27:27 A # 20 IV was noted in the Forearm (right). Grade = 0 15:27:28 IV Solutions given in lab by Lynn Duran RN in Right Forearm via Peripheral IV. Pump/D rip Flow using NaCl .9. 15:27:30 History and physical on the chart or being dictated. Assessment: Initial Case, Edema=None, Color=Normal, Skin = Warm, Dry Right Pulses: Patric Ped=2, Femoral=2 15:27:31 Left Pulses: Patric Ped=2, Femoral=2 Neurological: State=Alert, Ox3, WEIN[place] Vitals capture started with the following parameters, Patient=Adult, Interval=5 min, Initial Pr ytinhk=813 mmHg, 15:33:54 Deflation Rate=5 mmHg, Cuff placed on Left Arm 15:35:31 HR=60 bpm, YUGC=966/79 mmhg, SpO2=96.0 %, Resp=16 B/min 15:36:09 Reference ECG taken 15:40:18 HR=61 bpm, UEVT=758/96 mmhg, SpO2=98.0 %, Resp=17 B/min 15:41:22 Right Radial and groin(s) prepped with 2% chlorhexidine, and draped after a 3 min. waiting time. 15:43:01 MD paged 15:44:20 MD arrived. 15:44:36 HR=61 bpm, LPKS=637/87 mmhg, SpO2=97.0 %, Resp=22 B/min 15:45:50 Pressure channel 1 zeroed. 15:49:37 HR=61 bpm, RLCZ=035/87 mmhg, SpO2=96.0 %, Resp=19 B/min Time Out. Correct patient, correct procedure, correct physician, labs, allergies, and equipment verified with laborer aquatic life 15:50:20 team present. Fire risk assesment completed (see hard stop sheet for coding). Time Out Conc urred by and individual staff in procedure. 0.5 mg VERSED given in lab by Lynn Duran RN in Right Forearm via Peripheral IV. Ordered Sedrick Welch 15:50:23 G. 25 mcg FENTANYL given in lab by Lynn Duran, OSMAN in Right Forearm via Peripheral IV. Ordered by Sedrick Senior 15:51:05 G. 15:51:45 Case Start 15:51:47 5 mL 1% XYLOCAINE given in lab by Sedrick Senior in Right Radial via Subcutaneous. 15:54:30 Access site was Right Radial Artery . 15:54:38 HR=66 bpm, OIPT=364/91 mmhg, SpO2=96.0 %, Resp=20 B/min A SHEATH, FR6 TRANSRADIAL SLENDER 10CM FR 6 was advanced into the Radial (right) using the Perc utaneous 15:54:47 technique. 5 mL (Bolus) RADIAL COCKTAIL given in lab by Sedrick Senior in Right Radial via Radial. Us ing [Solution Name]. 15:54:55 Reason: Ntg 200mcg Verapamil 2.5mg Heparin 4000U. A JR 4.0 INFINITI CATHETER FR 5 was advanced over a wire. OMNIPAQUE, 350 MG, 150ML 150ML was us ed for 15:56:19 injections. Recorded Pressure: LV, HR=71, Condition=Condition 1 15:56:59 (Left Ventricle) LV 181/1/10 Recorded Pressure: LV, Ao, HR=68, Condition=Condition 1 15:57:16 (Left Ventricle) LV 173/-4/13, (Aorta) Ao 159/69/106 Recorded Pressure: Ao, HR=65, Condition=Condition 1 15:58:38 (Aorta) Ao 149/77/106 After removing the current catheter a JL 3.5 DXTERITY CATHETER FR 5 was advanced over a WIRE, E XCHANGE 260CM 15:59:37 3MMJ 260CM. 15:59:39 HR=67 bpm, TZPL=290/78 mmhg, SpO2=93.0 %, Resp=23 B/min 16:01:54 The LCA was injected and visualized at various angles. OMNIPAQUE, 350 MG, 150ML 150ML used . 16:04:36 HR=68 bpm, LMLE=583/78 mmhg, SpO2=93.0 %, Resp=23 B/min After removing the current catheter a AL 1 INFINITI CATHETER FR 5 was advanced over a WIRE, EXC HANGE 260CM 16:05:33 3MMJ 260CM. 16:09:37 HR=67 bpm, VOBZ=697/83 mmhg, SpO2=94.0 %, Resp=24 B/min After removing the current catheter a AR MOD INFINITI CATHETER FR 5 was advanced over a WIRE, E XCHANGE 260CM 16:09:43 3MMJ 260CM. 16:14:41 HR=66 bpm, CNYP=592/90 mmhg, SpO2=96.0 %, Resp=20 B/min After removing the current catheter a JR 4.0 INFINITI CATHETER FR 5 was advanced over a WIRE, E XCHANGE 260CM 16:16:49 3MMJ 260CM. 16:19:40 HR=65 bpm, FLYP=664/90 mmhg, SpO2=96.0 %, Resp=20 B/min After removing the current catheter a AL 1 INFINITI CATHETER FR 5 was advanced over a WIRE, EXC HANGE 260CM 16:23:05 3MMJ 260CM. 16:24:41 HR=63 bpm, SUXM=436/92 mmhg, SpO2=97.0 %, Resp=21 B/min 0.5 mg VERSED given in lab by Lynn Duran, RN in Right Forearm via Peripheral IV. Ordered Sedrick Welch 16:28:40 G. 25 mcg FENTANYL given in lab by Lynn Duran, RN in Right Forearm via Peripheral IV. Ordered by Sedrick Senior 16:29:05 G. 16:29:44 HR=65 bpm, HXPT=320/96 mmhg, SpO2=97.0 %, Resp=28 B/min After removing the current catheter a AR MOD INFINITI CATHETER FR 5 was advanced over a WIRE, E XCHANGE 260CM 16:29:58 3MMJ 260CM. 16:34:47 HR=64 bpm, PCXA=536/80 mmhg, SpO2=94.0 %, Resp=23 B/min 16:35:32 A WIRE, EXCHANGE 260CM 3MMJ 260CM was inserted via Radial (right). After removing the current catheter a AL 1 INFINITI CATHETER FR 5 was advanced over a WIRE, EXC HANGE 260CM 16:36:44 3MMJ 260CM. 16:40:01 A WIRE, EXCHANGE 260CM 3MMJ 260CM was inserted via Radial (right). 16:40:07 Catheter was removed 16:40:08 Wire removed 16:40:25 HR=61 bpm, SQKF=057/93 mmhg, SpO2=96.0 %, Resp=20 B/min 20 mL 1% XYLOCAINE given in lab by Sedrick Senior in Right Groin via Subcutaneous. Ordered by Parrish 16:43:09 Sedrick Camejo. 16:44:28 Access site was Right Femoral Artery. A INTRODUCER SET, MICROPUNCTURE STIFF FR 5 was advanced into the Fem Art (right) using the Perc utaneous 16:44:38 technique. 16:44:45 HR=63 bpm, SBBW=532/97 mmhg, SpO2=97.0 %, Resp=21 B/min A SHEATH, FR6 TERUMO (10CM) FR 6 was exchanged in the Fem Art (right). This was necessary in or gabrielle to 16:44:58 accomodate a larger catheter. 16:46:01 An injection in the Fem Art (right) was made through the SHEATH, FR6 TERUMO (10CM) FR 6. A AL 1 INFINITI CATHETER FR 5 was advanced over a wire. OMNIPAQUE, 350 MG, 150ML 150ML was used for 16:47:39 injections. 16:49:48 HR=62 bpm, OCOO=880/96 mmhg, SpO2=95.0 %, Resp=21 B/min After removing the current catheter a MPA-2 INFINITI CATHETER FR 5 was advanced over a WIRE, EX CHANGE 260CM 16:54:12 3MMJ 260CM. 16:54:49 HR=58 bpm, OMYE=132/90 mmhg, SpO2=96.0 %, Resp=21 B/min After removing the current catheter a AR MOD INFINITI CATHETER FR 5 was advanced over a WIRE, E XCHANGE 260CM 16:56:06 3MMJ 260CM. 17:00:25 HR=62 bpm, LGGL=330/91 mmhg, SpO2=97.0 %, Resp=23 B/min After removing the current catheter a JL 3.5 DXTERITY CATHETER FR 5 was advanced over a WIRE, E XCHANGE 260CM 17:00:58 3MMJ 260CM. 17:03:19 A WIRE, EXCHANGE 260CM 3MMJ 260CM was inserted via Fem Art (right). 17:03:44 Wire removed 17:04:45 HR=60 bpm, SFOR=073/93 mmhg, SpO2=96.0 %, Resp=19 B/min After removing the current catheter a JL 4.0 INFINITI CATHETER FR 6 was advanced over a WIRE, E XCHANGE 260CM 17:05:09 3MMJ 260CM. 17:09:48 HR=59 bpm, URBO=733/89 mmhg, SpO2=97.0 %, Resp=20 B/min 17:10:44 The RCA was injected and visualized at various angles. OMNIPAQUE, 350 MG, 150ML 150ML used . 10 mg LABETOLOL given in lab by Kavita Lees, RN in Right Forearm via Peripheral IV. Ordered by Sedrick Senior 17:11:06 G. After removing the current catheter a EBU 3.5 Z2 GUIDE CATHETER FR 6 was advanced over a WIRE, EXCHANGE 17:11:21 260CM 3MMJ 260CM. 6000 units HEPARIN given in lab by Kavita Lees, RN in Right Forearm via Peripheral IV. Orde red by Parrish, 17:13:15 Sedrick Lopez 17:13:21 Pressure channel 1 zeroed. 17:14:49 HR=61 bpm, EPDA=973/89 mmhg, SpO2=95.0 %, Resp=20 B/min 17:15:52 A PRIME WIRE, VERRATA 185CM 185CM was inserted via Fem Art (right). 17:19:44 Flow Wire was was placed in the LAD Mid. The IFR measures 0.91 Percent. 17:19:52 HR=61 bpm, ATKU=366/79 mmhg, SpO2=96.0 %, Resp=20 B/min 17:20:24 The PRIME WIRE, VERRATA 185CM 185CM was removed. 17:22:45 ANGIOSEAL, FR6 VIP FR 6 placement in the Fem Art (right) Radial Compression Device Used. 12 mLs of air placed in BAND, RADIAL COMPRESSION TR SHORT 24 24 CM. Affected 17:22:53 hand 97 % O2 saturation. 17:24:15 Case End (Physician broke scrub) 17:24:27 Sterile dressing applied to site 17:24:27 Cine recording checked. 17:24:29 Bedside Report will be given. 17:24:31 Implantable Device card placed in patient's chart. 17:24:53 A Left Heart Cath was performed. 17:24:54 HR=64 bpm, XVBW=104/90 mmhg, SpO2=98.0 %, Resp=17 B/min 17:29:51 HR=60 bpm, MPTZ=483/107 mmhg, SpO2=96.0 %, Resp=9 B/min 17:34:48 HR=61 bpm, RDJT=391/92 mmhg, SpO2=97 %, Resp=20 B/min 17:37:16 Vitals capture stopped. 17:40:20 Patient moved to bed End Study - Contrast Media Used In Study Contrast Total Opened (mL) Total Used (mL) Total Wasted (mL) Omnipaque 300 230 70 End Study - Maximum Contrast Load Max Contrast Load (mL) 978.2 End Study - Radiation Exposure Fluoro Time (minutes) 32.1 End Study - Patient Disposition Complications Transferred To Interventional Outcome No Telemetry Bed No attempt made
--- NOTE | 2018-03-12 23:28 | P.PNCA ---
Subjective Interval history: No events overnight Post-cath Moderate CAD of LAD Physical Exam Vital signs: Vital Signs 03/12/18 00:00 03/12/18 04:00 03/12/18 08:00 Temperature 98.0 F 97.9 F Pulse Rate 76 65 62 Respiratory Rate 18 18 Blood Pressure 136/70 138/68 Pulse Oximetry 95 95 03/12/18 08:11 03/12/18 12:00 03/12/18 17:45 Temperature 98.5 F 98.7 F Pulse Rate 62 64 56 L Respiratory Rate 18 18 18 Blood Pressure 122/96 H 170/80 H 172/88 H Pulse Oximetry 93 L 95 98 03/12/18 18:35 03/12/18 18:36 03/12/18 18:54 Temperature 97.5 F L Pulse Rate 55 L 60 Respiratory Rate 18 Blood Pressure 174/85 H Pulse Oximetry 95 96 03/12/18 19:00 03/12/18 19:09 03/12/18 19:24 Temperature 97.5 F L 97.5 F L Pulse Rate 62 60 62 Respiratory Rate 18 18 Blood Pressure 179/79 H 124/52 L Pulse Oximetry 95 96 03/12/18 19:39 03/12/18 20:00 03/12/18 20:09 Temperature 97.5 F L 97.5 F L Pulse Rate 55 L 60 58 L Respiratory Rate 18 18 Blood Pressure 171/78 H 159/89 H Pulse Oximetry 96 96 03/12/18 20:39 03/12/18 21:09 03/12/18 21:39 Temperature Pulse Rate 64 63 61 Respiratory Rate 20 18 18 Blood Pressure 178/72 H 181/84 H 158/76 H Pulse Oximetry 98 96 96 03/12/18 22:39 Temperature 97.6 F Pulse Rate 61 Respiratory Rate 18 Blood Pressure 158/76 H Pulse Oximetry 96 Intake & Output 03/12/18 03/12/18 03/13/18 06:59 18:59 06:59 Intake Total 1000 / 1000 1310 / 1310 Balance 1000 / 1000 1310 / 1310 Weight 97.8 kg Intake: IV 1000 / 1000 1010 / 1010 Heparin/NS PF Inj 1,000 ML @ 0 10 / 10 mls/hr .ROUTE .[facility] Rx#: [id number] D5W/LR Inj 1,000 ML @ 100 mls/ 1000 / 1000 1000 / 1000 hr IV.CONT .Q10H [facility] Rx#: [id number] Oral 0 / 0 Anesthesia Amount 300 / 300 Other: # Voids 4 Date of Last Bowel Movement 03/10/18 03/12/18 03/12/18 Narrative: GENERAL: Well-nourished, well-developed patient in no apparent distress. SKIN: Warm and dry. HEAD: Atraumatic. Normocephalic. EYES: Pupils equal and round. No scleral icterus. No injection or drainage. ENT: No nasal bleeding or discharge. Mucous membranes pink and moist. NECK: Trachea midline. No JVD. CARDIOVASCULAR: Regular rate and rhythm. RESPIRATORY: Essentially clear, slightly diminished at bases. No wheezing noted. GASTROINTESTINAL: Abdomen soft, no tenderness, nondistended. Hepatic and splenic margins not palpable. MUSCULOSKELETAL: Extremities without clubbing, cyanosis, or edema. No obvious deformities. NEUROLOGICAL: Awake and alert. No obvious cranial nerve deficits. Motor grossly within normal limits. Five out of 5 muscle strength in the arms and legs. Normal speech. PSYCHIATRIC: Appropriate mood and affect; insight and judgment normal. Assessment and Plan - Assessment (1) Elevated troponin I level Code(s): R74.8 - Abnormal levels of other serum enzymes Status: Acute (2) Pancreatitis Code(s): K85.90 - Acute pancreatitis without necrosis or infection, unspecified Status: Acute (3) Obstruction of gallbladder Code(s): K82.0 - Obstruction of gallbladder Status: Acute (4) Non-ST elevation [place] (NSTEMI) Code(s): I21.4 - Non-ST elevation (NSTEMI) myocardial infarction Status: Acute (5) Acute pancreatitis Code(s): K85.90 - Acute pancreatitis without necrosis or infection, unspecified Status: Acute (6) Severe sepsis Code(s): A41.9 - Sepsis, unspecified organism; R65.20 - Severe sepsis without septic shock Status: Acute (7) Acute kidney insufficiency Code(s): N28.9 - Disorder of kidney and ureter, unspecified Status: Acute (8) Lactic acidosis Code(s): E87.2 - Acidosis Status: Acute (9) Common bile duct dilatation Code(s): K83.8 - Other specified diseases of biliary tract Status: Acute (10) Jaundice Code(s): R17 - Unspecified jaundice Status: Acute - Plan 1) Acute gallstone pancreatitis ERCP, most likely passed the stone Lipase still elevated Evaluated by GI 2) Elevated trop Most likely Type 2 due to overall illness Nuclear stress test showing possible ischemia of the anteroseptal wall Cath showing moderate CAD of the LAD Con't medical management Will start on ASA 81mg daily Not an allergy, told not to take before due to GI ulcer Will plan on ASA EC and take with food 3) EF 70%, moderate MR/AR (2) Pancreatitis Qualifiers: Chronicity: acute Pancreatitis type: biliary Acute pancreatitis complication : unspecified Qualified Code(s): K85.10 - Biliary acute pancreatitis without necrosis or infection
--- NOTE | 2018-03-13 01:20 | MA ---
cc: Sedrick Senior DO DATE: 03/12/2018 PROCEDURE: Left heart catheterization, coronary angiogram, moderate sedation 90 minutes, IFR LAD, Angio-Seal right groin. PREPROCEDURE DIAGNOSIS: Elevated troponin, abnormal stress test. POSTPROCEDURE DIAGNOSIS: Moderate coronary artery disease of the left anterior descending. MEDICATIONS: Versed 1 mg, fentanyl 50 mcg, verapamil 2.5 mg, nitro 200 mcg, heparin 10,000 units, labetalol 10 mg. CONTRAST USED: 230 mL. FLUOROSCOPY: 32 minutes. MODERATE SEDATION: 90 minutes. FRAILTY SCORE: 3. ESTIMATED BLOOD LOSS: 30 mL. PROCEDURAL SUMMARY: Conchis Perez is a pleasant 72-year-old female who presented to [place] due to pancreatitis. During her workup, she was found to have a mildly elevated troponin and underwent stress testing. Because this was abnormal, she was recommended cardiac catheterization. Risks, benefits, and alternatives were explained to her and she consented as such. She was brought to the lab and prepped in the usual sterile fashion. Right radial artery was accessed using modified Seldinger technique and placement of a 5/6 [place] slender sheath. This was easily aspirated and flushed. A JR4 was advanced over a J-wire to the ascending aorta and across the aortic valve for measurement of the left ventricular pressure. This was pulled back across the aortic valve showing no significant gradient of aortic stenosis. I was unable to cannulate the right coronary artery with the JR4, so this was exchanged out for a JL3.5, which was used for selective angiography of the left coronary artery system. This was exchanged out for multiple catheters including AL1, AR mod, and multipurpose. At this point, she was having significant spasm with difficulty of tortuosity above to allow for further evaluation from a radial standpoint and so right femoral artery was accessed using a modified Seldinger technique and placement of a 6-[place] sheath. This was easily aspirated and flushed. 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 Due to the moderate disease of the LAD, I felt that it should be further evaluated as it was not felt to be significant enough to cause ischemia. An EBU 3.5 guide was engaged in the left main. The patient was given additional heparin. A Verrata wire was advanced in the distal portion. IFR was done twice showing 0.91 and 0.92 showing nonsignificant stenosis. Wire was removed and final angiogram shows no disruption of the coronary anatomy. Angio-Seal was used to close her right femoral arteriotomy. The patient left the blood and plasma laboratory assistant cardiovascularly stable. FINDINGS: LEFT MAIN: Normal-sized vessel with adequate reflux. It bifurcates into an LAD and circumflex. LAD: Proximal portion has distal 30-40% disease. After the first diagonal, there appears to be 50-60% disease. This was measured by IFR of 0.91, 0.92 showing nonsignificant stenosis. It gives off 1 major diagonal, which has no significant disease. LEFT CIRCUMFLEX: Moderate size vessel with 30% disease in the mid portion. It gives off 3 obtuse marginals with no significant disease. 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 It has 20-30% disease in the mid portion. LVEDP 13. IMPRESSION: 1. Moderate coronary artery disease for medical management. 2. Pancreatitis, most likely due to gallstone, which has passed. RECOMMENDATIONS: 1. Ms. Perez underwent cardiac catheterization and during it was found to have moderate disease by IFR. 2. She will be recommended continued medical therapy. 3. We will plan on starting her on aspirin 81 mg daily due to her coronary artery disease. I discussed this with her and she felt this was not a true allergy as she was just told not to use ASA due to gastric ulcers. We will plan on her taking an enteric-coated aspirin with food and consideration of a proton pump inhibitor. Thank you for allowing me to see Conchis Perez. If there are any questions, please do not hesitate to call. Sedrick Senior DO VGP/sv , 12:07 AM , 12:18 AM AMANDA
[2018-03-13] MEDS: Dextrose 5%/Lactated Ringer's 1,000 ML IV.CONT SCH ×3 (05:37→23:17)
[2018-03-13 06:09] LABS: Albumin 2.3 g/dL (3.4-5.0); Anion Gap 10 meq/L (5-15); Aspartate Aminotransferase 25 U/L (15-37); Blood Urea Nitrogen 10 mg/dL (7-18); Calcium 8.5 mg/dL (8.5-10.1); Carbon Dioxide 25.4 meq/L (21.0-32.0); Chloride 107 meq/L (98-107); Glomerular Filtration Rate Greater Than 89 mL/min (>89); Glucose,Random 126 mg/dL (74-106); Lipase 993 U/L (73-393); Potassium 4.1 meq/L (3.5-5.1); Sodium 142 meq/L (136-145)
[2018-03-13 06:12] LABS: Alanine Aminotransferase 55 U/L (10-53); Alkaline Phosphatase 154 U/L (45-117); Total Protein 6.9 g/dL (6.4-8.2)
[2018-03-13 06:37] LABS: Baso # (Auto) 0.1 th/mm3 (0.0-0.2); Baso % (Auto) 0.9 % (0.0-2.0); Eos # (Auto) 0.3 th/mm3 (0.0-0.4); Eos % (Auto) 4.6 % (0.0-4.0); Hematocrit 37.2 % (35.0-46.0); Hemoglobin 12.6 gm/dL (11.6-15.3); Lymph # (Auto) 1.2 th/mm3 (1.0-4.8); Lymph % (Auto) 20.8 % (9.0-44.0); Mean Corpuscular HGB Conc 33.8 % (32.0-36.0); Mean Corpuscular Hemoglobin 30.1 pg (27.0-34.0); Mean Platelet Volume 7.6 fL (7.0-11.0); Mono # (Auto) 0.7 th/mm3 (0.0-0.9); Neut # (Auto) 3.6 th/mm3 (1.8-7.7); Neut % (Auto) 61.7 % (16.0-70.0); Platelet Count 442 th/mm3 (150-450); Red Blood Count 4.18 mil/mm3 (4.00-5.30); Red Cell Distribution Width 14.3 % (11.6-17.2); White Blood Count 5.8 th/mm3 (4.0-11.0)
[2018-03-13] MEDS: Famotidine 20 MG Tablet PO SCH ×2 (08:20→20:48)
[2018-03-13] MEDS: Metoprolol Tartrate 25 MG Tablet PO SCH ×2 (08:21→20:48)
[2018-03-13] MEDS: Senna/Docusate Sodium 8.6/50 MG Tablet PO SCH ×2 (08:22→20:48)
[2018-03-13] MEDS: Lisinopril 5 MG Tablet PO SCH (08:24)
[2018-03-13] MEDS ORDERED: Iohexol 350 MG/ML 50 ML Vial (for Cath Lab) IVCONTRAST ONE (09:25)
[2018-03-13] MEDS ORDERED: Iohexol 350 MG/ML 100 ML Vial (for Cath Lab) IVCONTRAST ONE (09:25)
--- NOTE | 2018-03-13 10:05 | P.PNCA ---
Subjective Interval history: No events overnight Mildly bradycardic No complaints Physical Exam Vital signs: Vital Signs 03/12/18 12:00 03/12/18 17:45 03/12/18 18:35 Temperature 98.7 F Pulse Rate 64 56 L 55 L Respiratory Rate 18 18 Blood Pressure 170/80 H 172/88 H Pulse Oximetry 95 98 03/12/18 18:36 03/12/18 18:54 03/12/18 19:00 Temperature 97.5 F L Pulse Rate 60 62 Respiratory Rate 18 Blood Pressure 174/85 H Pulse Oximetry 95 96 03/12/18 19:09 03/12/18 19:24 03/12/18 19:39 Temperature 97.5 F L 97.5 F L 97.5 F L Pulse Rate 60 62 55 L Respiratory Rate 18 18 18 Blood Pressure 179/79 H 124/52 L 171/78 H Pulse Oximetry 95 96 96 03/12/18 20:00 03/12/18 20:09 03/12/18 20:39 Temperature 97.5 F L Pulse Rate 60 58 L 64 Respiratory Rate 18 20 Blood Pressure 159/89 H 178/72 H Pulse Oximetry 96 98 03/12/18 21:00 03/12/18 21:09 03/12/18 21:39 Temperature Pulse Rate 62 63 61 Respiratory Rate 18 18 Blood Pressure 181/84 H 158/76 H Pulse Oximetry 96 96 03/12/18 22:00 03/12/18 22:39 03/12/18 23:00 Temperature 97.6 F Pulse Rate 60 61 54 L Respiratory Rate 18 Blood Pressure 158/76 H Pulse Oximetry 96 03/12/18 23:39 03/13/18 00:00 03/13/18 00:39 Temperature 97.8 F 97.8 F Pulse Rate 62 60 56 L Respiratory Rate 18 16 Blood Pressure 150/72 H 118/58 L Pulse Oximetry 96 96 03/13/18 01:00 03/13/18 01:39 03/13/18 02:00 Temperature Pulse Rate 50 L 49 L 52 L Respiratory Rate 18 Blood Pressure 145/68 H Pulse Oximetry 96 03/13/18 03:00 03/13/18 04:00 03/13/18 05:00 Temperature Pulse Rate 57 L 52 L 49 L Respiratory Rate Blood Pressure Pulse Oximetry 03/13/18 06:00 03/13/18 07:00 03/13/18 08:00 Temperature 97.9 F Pulse Rate 55 L 49 L 56 L Respiratory Rate 18 Blood Pressure 148/78 H Pulse Oximetry 98 03/13/18 09:00 Temperature Pulse Rate 55 L Respiratory Rate Blood Pressure Pulse Oximetry Intake & Output 03/12/18 03/13/18 03/13/18 18:59 06:59 18:59 Intake Total 1310 / 1310 590 / 590 Output Total 1100 / 1100 Balance 1310 / 1310 -510 / -510 Weight 94 kg Intake: IV 1010 / 1010 350 / 350 Heparin/NS PF Inj 1,000 ML @ 0 10 / 10 mls/hr .ROUTE .[facility] Rx#: [id number] D5W/LR Inj 1,000 ML @ 100 mls/ 1000 / 1000 350 / 350 hr IV.CONT .Q10H [facility] Rx#: [id number] Oral 240 / 240 Anesthesia Amount 300 / 300 Output: Urine 1100 / 1100 Other: # Voids 3 Date of Last Bowel Movement 03/12/18 03/13/18 03/13/18 # Bowel Movements 1 Narrative: GENERAL: Well-nourished, well-developed patient in no apparent distress. SKIN: Warm and dry. HEAD: Atraumatic. Normocephalic. EYES: Pupils equal and round. No scleral icterus. No injection or drainage. ENT: No nasal bleeding or discharge. Mucous membranes pink and moist. NECK: Trachea midline. No JVD. CARDIOVASCULAR: Regular rate and rhythm. RESPIRATORY: Essentially clear, slightly diminished at bases. No wheezing noted. GASTROINTESTINAL: Abdomen soft, no tenderness, nondistended. Hepatic and splenic margins not palpable. MUSCULOSKELETAL: Extremities without clubbing, cyanosis, or edema. No obvious deformities. Right radial pulses intact, neurovascularly stable distally. Right femoral no hematoma, distal pulses intact. NEUROLOGICAL: Awake and alert. No obvious cranial nerve deficits. Motor grossly within normal limits. Five out of 5 muscle strength in the arms and legs. Normal speech. PSYCHIATRIC: Appropriate mood and affect; insight and judgment normal. Assessment and Plan - Assessment (1) Elevated troponin I level Code(s): R74.8 - Abnormal levels of other serum enzymes Status: Acute (2) Pancreatitis Code(s): K85.90 - Acute pancreatitis without necrosis or infection, unspecified Status: Acute (3) Obstruction of gallbladder Code(s): K82.0 - Obstruction of gallbladder Status: Acute (4) Non-ST elevation [place] (NSTEMI) Code(s): I21.4 - Non-ST elevation (NSTEMI) myocardial infarction Status: Acute (5) Acute pancreatitis Code(s): K85.90 - Acute pancreatitis without necrosis or infection, unspecified Status: Acute (6) Severe sepsis Code(s): A41.9 - Sepsis, unspecified organism; R65.20 - Severe sepsis without septic shock Status: Acute (7) Acute kidney insufficiency Code(s): N28.9 - Disorder of kidney and ureter, unspecified Status: Acute (8) Lactic acidosis Code(s): E87.2 - Acidosis Status: Acute (9) Common bile duct dilatation Code(s): K83.8 - Other specified diseases of biliary tract Status: Acute (10) Jaundice Code(s): R17 - Unspecified jaundice Status: Acute - Plan 1) Acute gallstone pancreatitis ERCP, most likely passed the stone Lipase still elevated Evaluated by GI 2) Elevated trop Most likely Type 2 due to overall illness Nuclear stress test showing possible ischemia of the anteroseptal wall Cath showing moderate CAD of the LAD Con't medical management ASA 81mg daily Not an allergy, told not to take before due to GI ulcer Will plan on ASA EC and take with food 3) EF 70%, moderate MR/AR 4) BB held for bradycardia 5) No further workup from cardio standpoint (2) Pancreatitis Qualifiers: Chronicity: acute Pancreatitis type: biliary Acute pancreatitis complication : unspecified Qualified Code(s): K85.10 - Biliary acute pancreatitis without necrosis or infection
--- NOTE | 2018-03-13 11:10 | P.PN ---
Subjective Interval history: Non-ST elevation [place]/gallstone pancreatitis March 13, 2018-patient seen and examined, denies any abdominal pain and tolerated p.o. without any competition nausea and vomiting. Denies any chest pain or shortness of breath. Granddaughter by the bedside. Vital stable other than mildly bradycardic. Physical Exam Vital signs: Vital Signs 03/12/18 12:00 03/12/18 17:45 03/12/18 18:35 Temperature 98.7 F Pulse Rate 64 56 L 55 L Respiratory Rate 18 18 Blood Pressure 170/80 H 172/88 H Pulse Oximetry 95 98 03/12/18 18:36 03/12/18 18:54 03/12/18 19:00 Temperature 97.5 F L Pulse Rate 60 62 Respiratory Rate 18 Blood Pressure 174/85 H Pulse Oximetry 95 96 03/12/18 19:09 03/12/18 19:24 03/12/18 19:39 Temperature 97.5 F L 97.5 F L 97.5 F L Pulse Rate 60 62 55 L Respiratory Rate 18 18 18 Blood Pressure 179/79 H 124/52 L 171/78 H Pulse Oximetry 95 96 96 03/12/18 20:00 03/12/18 20:09 03/12/18 20:39 Temperature 97.5 F L Pulse Rate 60 58 L 64 Respiratory Rate 18 20 Blood Pressure 159/89 H 178/72 H Pulse Oximetry 96 98 03/12/18 21:00 03/12/18 21:09 03/12/18 21:39 Temperature Pulse Rate 62 63 61 Respiratory Rate 18 18 Blood Pressure 181/84 H 158/76 H Pulse Oximetry 96 96 03/12/18 22:00 03/12/18 22:39 03/12/18 23:00 Temperature 97.6 F Pulse Rate 60 61 54 L Respiratory Rate 18 Blood Pressure 158/76 H Pulse Oximetry 96 03/12/18 23:39 03/13/18 00:00 03/13/18 00:39 Temperature 97.8 F 97.8 F Pulse Rate 62 60 56 L Respiratory Rate 18 16 Blood Pressure 150/72 H 118/58 L Pulse Oximetry 96 96 03/13/18 01:00 03/13/18 01:39 03/13/18 02:00 Temperature Pulse Rate 50 L 49 L 52 L Respiratory Rate 18 Blood Pressure 145/68 H Pulse Oximetry 96 03/13/18 03:00 03/13/18 04:00 03/13/18 05:00 Temperature Pulse Rate 57 L 52 L 49 L Respiratory Rate Blood Pressure Pulse Oximetry 03/13/18 06:00 03/13/18 07:00 03/13/18 08:00 Temperature 97.9 F Pulse Rate 55 L 49 L 56 L Respiratory Rate 18 Blood Pressure 148/78 H Pulse Oximetry 98 03/13/18 09:00 03/13/18 10:00 Temperature Pulse Rate 55 L 69 Respiratory Rate Blood Pressure Pulse Oximetry Intake & Output 03/12/18 03/13/18 03/13/18 18:59 06:59 18:59 Intake Total 1310 / 1310 590 / 590 Output Total 1100 / 1100 Balance 1310 / 1310 -510 / -510 Weight 94 kg Intake: IV 1010 / 1010 350 / 350 Heparin/NS PF Inj 1,000 ML @ 0 10 / 10 mls/hr .ROUTE [facility] Rx#: [id number] D5W/LR Inj 1,000 ML @ 100 mls/ 1000 / 1000 350 / 350 hr IV.CONT .[facility] Rx#: [id number] Oral 240 / 240 Anesthesia Amount 300 / 300 Output: Urine 1100 / 1100 Other: # Voids 3 Date of Last Bowel Movement 03/12/18 03/13/18 03/13/18 # Bowel Movements 1 Narrative: GENERAL: NAD SKIN: Warm and dry. HEAD: Atraumatic. Normocephalic. EYES: Pupils equal and round. No scleral icterus. No injection or drainage. ENT: No nasal bleeding or discharge. Mucous membranes pink and moist. NECK: Trachea midline. No JVD. CARDIOVASCULAR: Regular rate and rhythm. RESPIRATORY: Essentially clear, slightly diminished at bases. No wheezing noted. GASTROINTESTINAL: Abdomen soft, no tenderness, nondistended. Hepatic and splenic margins not palpable. MUSCULOSKELETAL: Extremities without clubbing, cyanosis, or edema. No obvious deformities. Right radial pulses intact, neurovascularly stable distally. Right femoral no hematoma, distal pulses intact. NEUROLOGICAL: Awake and alert. No obvious cranial nerve deficits. Motor grossly within normal limits. Five out of 5 muscle strength in the arms and legs. Normal speech. PSYCHIATRIC: Appropriate mood and affect; insight and judgment normal. Results - Labs CBC & Chem 7: 03/13/18 04:39 03/13/18 04:39 Laboratory Results - last 24 hr 03/13/18 03/13/18 04:39 04:39 WBC 5.8 RBC 4.18 Hgb 12.6 Hct 37.2 MCV 89.0 MCH 30.1 MCHC 33.8 RDW 14.3 Plt Count 442 MPV 7.6 Neut % (Auto) 61.7 Lymph % (Auto) 20.8 Brooks % (Auto) 12.0 H Eos % (Auto) 4.6 H Baso % (Auto) 0.9 Neut # (Auto) 3.6 Lymph # (Auto) 1.2 Brooks # (Auto) 0.7 Eos # (Auto) 0.3 Baso # (Auto) 0.1 WBC Differential . Differential Comment Auto diff final Hematology Comments Sodium 142 Potassium 4.1 D Chloride 107 Carbon Dioxide 25.4 Anion Gap 10 BUN 10 Creatinine 0.63 Estimated GFR Greater than 89 Random Glucose 126 H Calcium 8.5 Total Bilirubin 0.7 Direct Bilirubin 0.3 H Indirect Bilirubin 0.4 AST 25 ALT 55 H Alkaline Phosphatase 154 H Total Protein 6.9 D Albumin 2.3 L Lipase 993 H Assessment and Plan - Assessment (1) Acute pancreatitis Code(s): K85.90 - Acute pancreatitis without necrosis or infection, unspecified Status: Acute (2) Non-ST elevation [place] (NSTEMI) Code(s): I21.4 - Non-ST elevation (NSTEMI) myocardial infarction Status: Acute (3) Acute kidney insufficiency Code(s): N28.9 - Disorder of kidney and ureter, unspecified Status: Acute (4) Lactic acidosis Code(s): E87.2 - Acidosis Status: Acute (5) Hypertension Code(s): I10 - Essential (primary) hypertension Status: Chronic (6) Obstruction of gallbladder Code(s): K82.0 - Obstruction of gallbladder Status: Acute - Plan 1. Acute pancreatitis -secondary to gallstone, post ERCP 03/05 GI still following as Lipase still elevated Monitor Lipase level 2. Possible cholangitis -no evidence found on ERCP 3. Severe sepsis -resolved 4. Lactic acidosis -resolved 5. Non-STEMI followed by cardiology. s/p Nuclear stress text with finding of Slight to moderate ischemia anteroseptal wall on 03/07. 2D echo with EF 75%. s/p left heart catheterization March 12, 2018 showing moderate CAD of the LAD Currently on ASA EC BB on hold due to mildly Bradycardia 6. BRIA -creatinine normalized 7. Hypertension On Lopressor 8. GI prophylaxis with pantoprazole 9. DVT prophylaxis with SCDs and Lovenox (5) Hypertension Qualifiers: Hypertension type: essential hypertension Qualified Code(s): I10 - Essential (primary) hypertension
[2018-03-14] MEDS: Lisinopril 5 MG Tablet PO SCH (08:05)
[2018-03-14] MEDS: Famotidine 20 MG Tablet PO SCH ×2 (08:05→21:49)
[2018-03-14] MEDS: Metoprolol Tartrate 25 MG Tablet PO SCH ×2 (08:05→21:49)
[2018-03-14] MEDS: Senna/Docusate Sodium 8.6/50 MG Tablet PO SCH ×2 (08:06→21:49)
[2018-03-14] MEDS: Dextrose 5%/Lactated Ringer's 1,000 ML IV.CONT SCH (08:06)
[2018-03-14] MEDS: Acetaminophen 325 MG Tablet PO PRN (08:07)
--- NOTE | 2018-03-14 09:15 | P.PNGI ---
Subjective Interval history: Alert NAD tolerating breakfast and denies abdominal pain Lipase at 940 Ct Abd reviewed induration around pancreas 03/10 c/w pancreatitis ?gallstone induced and post ERCP..... Pt remains stable ....also post t cardiac cath cardiology noted also reviewed Physical Exam Vital signs: Vital Signs 03/13/18 10:00 03/13/18 11:00 03/13/18 12:00 Temperature 98.1 F Pulse Rate 69 76 87 Respiratory Rate 18 Blood Pressure 166/95 H Pulse Oximetry 97 03/13/18 13:00 03/13/18 14:00 03/13/18 15:00 Temperature 98.5 F Pulse Rate 80 57 L 55 L Respiratory Rate 18 Blood Pressure 108/66 Pulse Oximetry 96 03/13/18 16:00 03/13/18 17:00 03/13/18 18:00 Temperature Pulse Rate 58 L 67 68 Respiratory Rate Blood Pressure Pulse Oximetry 03/13/18 19:00 03/13/18 20:00 03/13/18 21:00 Temperature 98.1 F Pulse Rate 60 68 88 Respiratory Rate 20 Blood Pressure 179/68 H Pulse Oximetry 98 03/13/18 22:00 03/13/18 23:00 03/14/18 00:00 Temperature 98.6 F Pulse Rate 72 73 66 Respiratory Rate 18 Blood Pressure 147/88 H Pulse Oximetry 98 03/14/18 01:00 03/14/18 02:00 03/14/18 03:00 Temperature 98.3 F Pulse Rate 60 52 L 53 L Respiratory Rate 18 Blood Pressure 148/73 H Pulse Oximetry 97 03/14/18 04:00 03/14/18 05:00 03/14/18 06:00 Temperature Pulse Rate 58 L 66 60 Respiratory Rate Blood Pressure Pulse Oximetry 03/14/18 07:00 Temperature 98.4 F Pulse Rate 61 Respiratory Rate 18 Blood Pressure 181/90 H Pulse Oximetry 97 Intake & Output 03/13/18 03/14/18 03/14/18 18:59 06:59 18:59 Intake Total 2150 / 2150 240 / 240 Output Total 500 / 500 700 / 700 Balance 1650 / 1650 -460 / -460 Weight 95 kg Intake: IV 650 / 650 D5W/LR Inj 1,000 ML @ 100 mls/ 650 / 650 hr IV.CONT .Q10H [facility] Rx#: [id number] Oral 1500 / 1500 240 / 240 Output: Urine 500 / 500 700 / 700 Other: # Voids 3 Date of Last Bowel Movement 03/13/18 03/12/18 03/13/18 # Bowel Movements 1 - Constitutional no acute distress - Routine HEENT Exam ENT: Present: mucous membranes moist - Routine Neck Exam Present: supple - Routine Respiratory Exam Present: CTA bilaterally - Routine Cardiovascular Exam Present: RRR, S1, S2 - Routine Abdominal Exam Present: soft, normoactive bowel sounds. Absent: tenderness Comments: no rebound tenderness Results - Labs CBC & Chem 7: 03/13/18 04:39 03/13/18 04:39 Assessment and Plan (1) Acute pancreatitis Status: Acute Code(s): K85.90 - Acute pancreatitis without necrosis or infection, unspecified (2) Elevated troponin I level Status: Acute Code(s): R74.8 - Abnormal levels of other serum enzymes (3) Non-ST elevation [place] (NSTEMI) Status: Acute Code(s): I21.4 - Non-ST elevation (NSTEMI) myocardial infarction - Plan Apppears stable Gi .. suggest f/u CT abdomen in 3-4 weeks and consider HIDA scan as pancreatitis resolves rebeca labs as well f/u as outpt if dcd recommend low fat diet as well.
--- NOTE | 2018-03-14 10:20 | P.PN ---
Subjective Interval history: Non-ST elevation [place]/gallstone pancreatitis March 13, 2018-patient seen and examined, denies any abdominal pain and tolerated p.o. without any competition nausea and vomiting. Denies any chest pain or shortness of breath. Granddaughter by the bedside. Vital stable other than mildly bradycardic. March 14, 2018-patient seen and examined, stable, looking forward one home today. Seen by GI and clear for discharge. Physical Exam Vital signs: Vital Signs 03/13/18 11:00 03/13/18 12:00 03/13/18 13:00 Temperature 98.1 F Pulse Rate 76 87 80 Respiratory Rate 18 Blood Pressure 166/95 H Pulse Oximetry 97 03/13/18 14:00 03/13/18 15:00 03/13/18 16:00 Temperature 98.5 F Pulse Rate 57 L 55 L 58 L Respiratory Rate 18 Blood Pressure 108/66 Pulse Oximetry 96 03/13/18 17:00 03/13/18 18:00 03/13/18 19:00 Temperature 98.1 F Pulse Rate 67 68 60 Respiratory Rate 20 Blood Pressure 179/68 H Pulse Oximetry 98 03/13/18 20:00 03/13/18 21:00 03/13/18 22:00 Temperature Pulse Rate 68 88 72 Respiratory Rate Blood Pressure Pulse Oximetry 03/13/18 23:00 03/14/18 00:00 03/14/18 01:00 Temperature 98.6 F Pulse Rate 73 66 60 Respiratory Rate 18 Blood Pressure 147/88 H Pulse Oximetry 98 03/14/18 02:00 03/14/18 03:00 03/14/18 04:00 Temperature 98.3 F Pulse Rate 52 L 53 L 58 L Respiratory Rate 18 Blood Pressure 148/73 H Pulse Oximetry 97 03/14/18 05:00 03/14/18 06:00 03/14/18 07:00 Temperature 98.4 F Pulse Rate 66 60 66 Respiratory Rate 18 Blood Pressure 181/90 H Pulse Oximetry 97 03/14/18 08:00 03/14/18 09:00 Temperature Pulse Rate 59 L 60 Respiratory Rate Blood Pressure Pulse Oximetry Intake & Output 03/13/18 03/14/18 03/14/18 18:59 06:59 18:59 Intake Total 2150 / 2150 240 / 240 Output Total 500 / 500 700 / 700 Balance 1650 / 1650 -460 / -460 Weight 95 kg Intake: IV 650 / 650 D5W/LR Inj 1,000 ML @ 100 mls/ 650 / 650 hr IV.CONT .Q10H MIGUEL Rx#: [id number] Oral 1500 / 1500 240 / 240 Output: Urine 500 / 500 700 / 700 Other: # Voids 3 Date of Last Bowel Movement 03/13/18 03/12/18 03/13/18 # Bowel Movements 1 Narrative: GENERAL: NAD SKIN: Warm and dry. HEAD: Atraumatic. Normocephalic. EYES: Pupils equal and round. No scleral icterus. No injection or drainage. ENT: No nasal bleeding or discharge. Mucous membranes pink and moist. NECK: Trachea midline. No JVD. CARDIOVASCULAR: Regular rate and rhythm. RESPIRATORY: Essentially clear, slightly diminished at bases. No wheezing noted. GASTROINTESTINAL: Abdomen soft, no tenderness, nondistended. Hepatic and splenic margins not palpable. MUSCULOSKELETAL: Extremities without clubbing, cyanosis, or edema. No obvious deformities. Right radial pulses intact, neurovascularly stable distally. Right femoral no hematoma, distal pulses intact. NEUROLOGICAL: Awake and alert. No obvious cranial nerve deficits. Motor grossly within normal limits. Five out of 5 muscle strength in the arms and legs. Normal speech. PSYCHIATRIC: Appropriate mood and affect; insight and judgment normal. Results - Labs CBC & Chem 7: 03/13/18 04:39 03/13/18 04:39 - Procedures [facility]CP [facility] Assessment and Plan - Assessment (1) Acute pancreatitis Code(s): K85.90 - Acute pancreatitis without necrosis or infection, unspecified Status: Acute (2) Non-ST elevation [place] (NSTEMI) Code(s): I21.4 - Non-ST elevation (NSTEMI) myocardial infarction Status: Acute (3) Acute kidney insufficiency Code(s): N28.9 - Disorder of kidney and ureter, unspecified Status: Acute (4) Lactic acidosis Code(s): E87.2 - Acidosis Status: Acute (5) Hypertension Code(s): I10 - Essential (primary) hypertension Status: Chronic (6) Obstruction of gallbladder Code(s): K82.0 - Obstruction of gallbladder Status: Acute - Plan 1. Acute pancreatitis -secondary to gallstone, post ERCP 03/05 GI still following recommends CT abdomen 3-4 weeks post discharge,HIDA scan 2. Possible cholangitis -no evidence found on ERCP 3. Severe sepsis -resolved 4. Lactic acidosis -resolved 5. Non-STEMI followed by cardiology. s/p Nuclear stress text with finding of Slight to moderate ischemia anteroseptal wall on 03/07. 2D echo with EF 75%. s/p left heart catheterization March 12, 2018 showing moderate CAD of the LAD Currently on ASA EC BB on hold due to mildly Bradycardia 6. BRIA -creatinine normalized 7. Hypertension On Lopressor 8. GI prophylaxis with pantoprazole 9. DVT prophylaxis with SCDs and Lovenox (5) Hypertension Qualifiers: Hypertension type: essential hypertension Qualified Code(s): I10 - Essential (primary) hypertension
--- NOTE | 2018-03-14 10:21 | P.DCO ---
- Home Health Nursing Order: Signs/symptoms of disease process - Certification I have seen patient Conchis Perez on 03/14/18. My clinical findings support the need for the requested home health care services because: Patient has SOB I certify that my clinical findings support that this patient is homebound because: Poor cardiac reserve
--- NOTE | 2018-03-14 10:23 | P.DS ---
Date of admission: 03/03/18 21:44 Primary care physician: Aureliano Tiwari MD Anticipated date of discharge: 03/14/18 Brief History from admission: Patient is a 72-year-old obese female with past medical history only significant for hypertension, and GI bleed from peptic ulcer, who presented to the emergency department at [facility] for epigastric pain radiating to the right lower quadrant and to the back. Some associated nausea without vomiting. Patient has no history of any abdominal surgeries or pancreatitis in the past. Lab work showed 13,000 white blood cell count with left shift 13% bands, lactic acid 2.1, BUN 38 creatinine 0.93 AST 315, ALT 442, bilirubin 6.2 and also lipase 18,749. Patient had also troponin elevation to 2.2 without chest pain or EKG changes. GI was consulted by ER and Dr. Deng from cardiology also consulted. Cardiology recommends against IV heparin at this time. Cannot use aspirin due to NSAID allergy, will start IV metoprolol 2.5 mg every 6 hours. GI requested transfer to [facility] for ERCP I examined the patient after she arrived to the ICU. Patient appears dry anxious from pain. She clinically is doing interest and CT of the abdomen pelvis showed common bile duct is dilated down to the ampulla. This may indicate choledocholithiasis versus ampullary carcinoma causing obstruction. Patient will be treated with broad-spectrum antibiotics with Zosyn, give 2 L normal saline bolus and continue maintenance IV fluids. I have requested MRCP DS: Diagnosis - Discharge Diagnosis (1) Acute pancreatitis Status: Acute (2) Non-ST elevation MD (NSTEMI) Status: Acute (3) Lactic acidosis Status: Acute (4) Hypertension Status: Chronic (5) Obstruction of gallbladder Status: Acute (6) Acute kidney insufficiency Status: Acute DS: Medications - Discharge Medications Prescriptions: amlodipine [Norvasc] 10 mg PO DAILY #30 tab lisinopril 10 mg PO DAILY #30 tab DS: Summary Hospital Course: While in hospital, patient was treated for: 1. Acute pancreatitis -secondary to gallstone, post ERCP 03/05 GI still following recommends CT abdomen 3-4 weeks post discharge,HIDA scan 2. Possible cholangitis -no evidence found on ERCP 3. Severe sepsis -resolved 4. Lactic acidosis -resolved 5. Non-STEMI followed by cardiology. s/p Nuclear stress text with finding of Slight to moderate ischemia anteroseptal wall on 03/07. 2D echo with EF 75%. s/p left heart catheterization March 12, 2018 showing moderate CAD of the LAD Will discharge home on ASA EC BB on hold due to mildly Bradycardia 6. BRIA -creatinine normalized 7. Hypertension Beta-kevin was on hold due to bradycardia, continue JERROD inhibitor 8. GI prophylaxis with pantoprazole 9. DVT prophylaxis with SCDs and Lovenox - Time Spent with Patient Total time spent providing and/or coordinating discharge services: Greater than 30 minutes - Quality: VTE Deep Vein Thrombosis/Pulmonary Embolism Present on Admission: No Exam Vital signs: Vital Signs 03/13/18 11:00 03/13/18 12:00 03/13/18 13:00 Temperature 98.1 F Pulse Rate 76 87 80 Respiratory Rate 18 Blood Pressure 166/95 H Pulse Oximetry 97 03/13/18 14:00 03/13/18 15:00 03/13/18 16:00 Temperature 98.5 F Pulse Rate 57 L 55 L 58 L Respiratory Rate 18 Blood Pressure 108/66 Pulse Oximetry 96 03/13/18 17:00 03/13/18 18:00 03/13/18 19:00 Temperature 98.1 F Pulse Rate 67 68 60 Respiratory Rate 20 Blood Pressure 179/68 H Pulse Oximetry 98 03/13/18 20:00 03/13/18 21:00 03/13/18 22:00 Temperature Pulse Rate 68 88 72 Respiratory Rate Blood Pressure Pulse Oximetry 03/13/18 23:00 03/14/18 00:00 03/14/18 01:00 Temperature 98.6 F Pulse Rate 73 66 60 Respiratory Rate 18 Blood Pressure 147/88 H Pulse Oximetry 98 03/14/18 02:00 03/14/18 03:00 03/14/18 04:00 Temperature 98.3 F Pulse Rate 52 L 53 L 58 L Respiratory Rate 18 Blood Pressure 148/73 H Pulse Oximetry 97 03/14/18 05:00 03/14/18 06:00 03/14/18 07:00 Temperature 98.4 F Pulse Rate 66 60 66 Respiratory Rate 18 Blood Pressure 181/90 H Pulse Oximetry 97 03/14/18 08:00 03/14/18 09:00 Temperature Pulse Rate 59 L 60 Respiratory Rate Blood Pressure Pulse Oximetry Intake & Output 03/13/18 03/14/18 03/14/18 18:59 06:59 18:59 Intake Total 2150 / 2150 240 / 240 Output Total 500 / 500 700 / 700 Balance 1650 / 1650 -460 / -460 Weight 95 kg Intake: IV 650 / 650 D5W/LR Inj 1,000 ML @ 100 mls/ 650 / 650 hr IV.CONT .Q10H MIGUEL Rx#: [id number] Oral 1500 / 1500 240 / 240 Output: Urine 500 / 500 700 / 700 Other: # Voids 3 Date of Last Bowel Movement 03/13/18 03/12/18 03/13/18 # Bowel Movements 1 Narrative: GENERAL: NAD SKIN: Warm and dry. HEAD: Normocephalic. EYES: No scleral icterus. No injection or drainage. NECK: Supple, trachea midline. No JVD or lymphadenopathy. CARDIOVASCULAR: Regular rate and rhythm without murmurs, gallops, or rubs. RESPIRATORY: Breath sounds equal bilaterally. No accessory muscle use. GASTROINTESTINAL: Abdomen soft, non-tender, nondistended. MUSCULOSKELETAL: No cyanosis, or edema. BACK: Nontender without obvious deformity. No CVA tenderness. Results Procedures completed during hospitalization: ERCP [facility] Labs on day of discharge: Labs from last 24 hours 03/14/18 09:48 Lipase Pending - Impressions ITS Impressions Cholangiopancreatography MRI 03/04/18 00:00 CONCLUSION: 1. Abnormal extrahepatic bile duct dilatation with questionable 3 mm filling defect suspected to be a stone in the distal common duct at the ampulla. There are 3 small stones also present within the gallbladder. Consider correlating with ERCP. 2. There is mild peripancreatic edema which was not appreciated on the a prior CT. This may indicate early mild pancreatitis. 3. There is a small 2 cm diverticulum arising from the medial wall of the second portion of the duodenum posterior to the distal common duct. There is also a mild degree of edema adjacent to this structure which could represent inflammation of this structure or could represent edema secondary to the suspected pancreatitis. 4. Moderate to severe hepatic steatosis. GI Procedure 03/05/18 00:00 CONCLUSION: ERCP images. Myocardial Perfusion Scan Nuc Med 03/07/18 09:00 CONCLUSION: 1. Slight to moderate ischemia anteroseptal wall. Abdomen/Pelvis CT 03/10/18 00:00 CONCLUSION: 1. Induration surrounding the pancreas likely from acute pancreatitis. 2. Minimal bilateral pleural effusions with accompanying atelectasis. 3. Colonic diverticula. 4. Degenerative change in the lumbar spine. Discharge Plan - Discharge Disposition Patient Disposition: /Home Health Service - Discharge Condition Condition: Stable - Discharge Order Discharge Orders: Discharge Order (Routine); Ordered 03/14/18 Ordered By: Harish Peña Cardiology Clear for Discharge (Routine); Ordered 03/15/18 Ordered By: Harish Peña Endocrinology Clear for Discharge (Routine); Ordered 03/15/18 Ordered By: Harish Peña - Physicians Team Primary Care Provider: Aureliano Tiwari Attending Provider: Harish Peña Other Providers: Tiana Deng MD ; Evan Vo MD ; Armando Roberts
[2018-03-14] MEDS ORDERED: amLODIPine 5 MG Tablet PO SCH (10:45)
--- NOTE | 2018-03-14 11:10 | P.PNCA ---
Subjective Interval history: No events overnight Feels well Physical Exam Vital signs: Vital Signs 03/13/18 12:00 03/13/18 13:00 03/13/18 14:00 Temperature Pulse Rate 87 80 57 L Respiratory Rate Blood Pressure Pulse Oximetry 03/13/18 15:00 03/13/18 16:00 03/13/18 17:00 Temperature 98.5 F Pulse Rate 55 L 58 L 67 Respiratory Rate 18 Blood Pressure 108/66 Pulse Oximetry 96 03/13/18 18:00 03/13/18 19:00 03/13/18 20:00 Temperature 98.1 F Pulse Rate 68 60 68 Respiratory Rate 20 Blood Pressure 179/68 H Pulse Oximetry 98 03/13/18 21:00 03/13/18 22:00 03/13/18 23:00 Temperature 98.6 F Pulse Rate 88 72 73 Respiratory Rate 18 Blood Pressure 147/88 H Pulse Oximetry 98 03/14/18 00:00 03/14/18 01:00 03/14/18 02:00 Temperature Pulse Rate 66 60 52 L Respiratory Rate Blood Pressure Pulse Oximetry 03/14/18 03:00 03/14/18 04:00 03/14/18 05:00 Temperature 98.3 F Pulse Rate 53 L 58 L 66 Respiratory Rate 18 Blood Pressure 148/73 H Pulse Oximetry 97 03/14/18 06:00 03/14/18 07:00 03/14/18 08:00 Temperature 98.4 F Pulse Rate 60 66 59 L Respiratory Rate 18 Blood Pressure 181/90 H Pulse Oximetry 97 Intake & Output 03/13/18 03/14/18 03/14/18 18:59 06:59 18:59 Intake Total 2150 / 2150 240 / 240 Output Total 500 / 500 700 / 700 Balance 1650 / 1650 -460 / -460 Weight 95 kg Intake: IV 650 / 650 D5W/LR Inj 1,000 ML @ 100 mls/ 650 / 650 hr IV.CONT .Q10H [facility]IGUEL Rx#: [id number] Oral 1500 / 1500 240 / 240 Output: Urine 500 / 500 700 / 700 Other: # Voids 3 Date of Last Bowel Movement 03/13/18 03/12/18 03/13/18 # Bowel Movements 1 Narrative: GENERAL: NAD SKIN: Warm and dry. HEAD: Atraumatic. Normocephalic. EYES: Pupils equal and round. No scleral icterus. No injection or drainage. ENT: No nasal bleeding or discharge. Mucous membranes pink and moist. NECK: Trachea midline. No JVD. CARDIOVASCULAR: Regular rate and rhythm. RESPIRATORY: Essentially clear, slightly diminished at bases. No wheezing noted. GASTROINTESTINAL: Abdomen soft, no tenderness, nondistended. Hepatic and splenic margins not palpable. MUSCULOSKELETAL: Extremities without clubbing, cyanosis, or edema. No obvious deformities. Right radial pulses intact, neurovascularly stable distally. Right femoral no hematoma, distal pulses intact. NEUROLOGICAL: Awake and alert. No obvious cranial nerve deficits. Motor grossly within normal limits. Five out of 5 muscle strength in the arms and legs. Normal speech. PSYCHIATRIC: Appropriate mood and affect; insight and judgment normal. Assessment and Plan - Assessment (1) Elevated troponin I level Code(s): R74.8 - Abnormal levels of other serum enzymes Status: Acute (2) Pancreatitis Code(s): K85.90 - Acute pancreatitis without necrosis or infection, unspecified Status: Acute (3) Obstruction of gallbladder Code(s): K82.0 - Obstruction of gallbladder Status: Acute (4) Non-ST elevation [place] (NSTEMI) Code(s): I21.4 - Non-ST elevation (NSTEMI) myocardial infarction Status: Acute (5) Acute pancreatitis Code(s): K85.90 - Acute pancreatitis without necrosis or infection, unspecified Status: Acute (6) Severe sepsis Code(s): A41.9 - Sepsis, unspecified organism; R65.20 - Severe sepsis without septic shock Status: Acute (7) Acute kidney insufficiency Code(s): N28.9 - Disorder of kidney and ureter, unspecified Status: Acute (8) Lactic acidosis Code(s): E87.2 - Acidosis Status: Acute (9) Common bile duct dilatation Code(s): K83.8 - Other specified diseases of biliary tract Status: Acute (10) Jaundice Code(s): R17 - Unspecified jaundice Status: Acute - Plan 1) Acute gallstone pancreatitis ERCP, most likely passed the stone Lipase still elevated Evaluated by GI 2) Elevated trop Most likely Type 2 due to overall illness Nuclear stress test showing possible ischemia of the anteroseptal wall Cath showing moderate CAD of the LAD Con't medical management ASA 81mg daily Not an allergy, told not to take before due to GI ulcer Will plan on ASA EC and take with food 3) EF 70%, moderate MR/AR 4) BB held for bradycardia 5) HTN Start on Norvasc 5mg daily, for anti-hypertensive and anti-anginal properties (2) Pancreatitis Qualifiers: Chronicity: acute Pancreatitis type: biliary Acute pancreatitis complication : unspecified Qualified Code(s): K85.10 - Biliary acute pancreatitis without necrosis or infection
[2018-03-14] MEDS ORDERED: amLODIPine 5 MG Tablet PO ONE (14:30)
[2018-03-14] MEDS ORDERED: Labetalol HCl Inj 100 MG/20 ML Vial IV.PUSH ONE (15:00)
[2018-03-15 06:48] LABS: Albumin 2.7 g/dL (3.4-5.0); Anion Gap 11 meq/L (5-15); Aspartate Aminotransferase 18 U/L (15-37); Carbon Dioxide 26.9 meq/L (21.0-32.0); Chloride 102 meq/L (98-107); Glomerular Filtration Rate Greater Than 89 mL/min (>89); Glucose,Random 131 mg/dL (74-106); Potassium 4.2 meq/L (3.5-5.1); Sodium 140 meq/L (136-145)
[2018-03-15 06:54] LABS: Alanine Aminotransferase 40 U/L (10-53); Alkaline Phosphatase 142 U/L (45-117); Blood Urea Nitrogen 10 mg/dL (7-18); Total Protein 7.4 g/dL (6.4-8.2)
[2018-03-15] MEDS: Famotidine 20 MG Tablet PO SCH (08:56)
[2018-03-15] MEDS: Lisinopril 5 MG Tablet PO SCH (08:56)
[2018-03-15] MEDS: Senna/Docusate Sodium 8.6/50 MG Tablet PO SCH (08:58)
[2018-03-15] MEDS ORDERED: amLODIPine 10 MG Tablet PO SCH (09:00)
[2018-03-15] MEDS: Metoprolol Tartrate 25 MG Tablet PO SCH (10:11)
--- NOTE | 2018-03-15 11:32 | P.PN ---
Subjective Interval history: Non-ST elevation [place]/gallstone pancreatitis March 13, 2018-patient seen and examined, denies any abdominal pain and tolerated p.o. without any competition nausea and vomiting. Denies any chest pain or shortness of breath. Granddaughter by the bedside. Vital stable other than mildly bradycardic. March 14, 2018-patient seen and examined, stable, looking forward one home today. Seen by GI and clear for discharge. March 15, 2018-patient seen and examined, discharge was held yesterday secondary to elevated BP however today patient is normotensive. Denies any chest pain or shortness of breath. Physical Exam Vital signs: Vital Signs 03/14/18 12:00 03/14/18 13:00 03/14/18 14:00 Temperature 99.4 F Pulse Rate 60 74 68 Respiratory Rate 20 Blood Pressure 210/99 H Pulse Oximetry 95 03/14/18 15:00 03/14/18 16:00 03/14/18 17:00 Temperature 98.7 F Pulse Rate 57 L 64 58 L Respiratory Rate 18 Blood Pressure 159/72 H Pulse Oximetry 96 03/14/18 18:00 03/14/18 19:00 03/14/18 20:00 Temperature 97.6 F Pulse Rate 72 66 62 Respiratory Rate 18 Blood Pressure 168/84 H Pulse Oximetry 95 03/14/18 21:00 03/14/18 22:00 03/14/18 23:00 Temperature Pulse Rate 56 L 74 67 Respiratory Rate 18 Blood Pressure 180/83 H Pulse Oximetry 96 03/15/18 00:00 03/15/18 01:00 03/15/18 02:00 Temperature Pulse Rate 70 62 60 Respiratory Rate Blood Pressure Pulse Oximetry 03/15/18 02:03 03/15/18 03:00 03/15/18 03:57 Temperature Pulse Rate 60 51 L 53 L Respiratory Rate 18 16 Blood Pressure 146/74 H 127/70 Pulse Oximetry 96 03/15/18 04:00 03/15/18 05:00 03/15/18 06:00 Temperature Pulse Rate 62 50 L 52 L Respiratory Rate Blood Pressure Pulse Oximetry 03/15/18 07:00 03/15/18 08:00 03/15/18 09:00 Temperature 98.3 F Pulse Rate 77 60 62 Respiratory Rate 18 Blood Pressure 122/71 Pulse Oximetry 95 03/15/18 10:00 Temperature Pulse Rate 67 Respiratory Rate Blood Pressure Pulse Oximetry Intake & Output 03/14/18 03/15/18 03/15/18 18:59 06:59 18:59 Intake Total 720 / 720 480 / 480 Output Total 800 / 800 1200 / 1200 Balance -80 / -80 -720 / -720 Weight 94.8 kg Intake: IV 0 / 0 D5W/LR Inj 1,000 ML @ 100 mls/ 0 / 0 hr IV.CONT .Q10H MIGUEL Rx#: [id number] Oral 720 / 720 480 / 480 Output: Urine 800 / 800 1200 / 1200 Other: Date of Last Bowel Movement 03/13/18 03/13/18 03/13/18 # Bowel Movements 0 Narrative: GENERAL: NAD SKIN: Warm and dry. HEAD: Atraumatic. Normocephalic. EYES: Pupils equal and round. No scleral icterus. No injection or drainage. ENT: No nasal bleeding or discharge. Mucous membranes pink and moist. NECK: Trachea midline. No JVD. CARDIOVASCULAR: Regular rate and rhythm. RESPIRATORY: Essentially clear, slightly diminished at bases. No wheezing noted. GASTROINTESTINAL: Abdomen soft, no tenderness, nondistended. Hepatic and splenic margins not palpable. MUSCULOSKELETAL: Extremities without clubbing, cyanosis, or edema. No obvious deformities. Right radial pulses intact, neurovascularly stable distally. Right femoral no hematoma, distal pulses intact. NEUROLOGICAL: Awake and alert. No obvious cranial nerve deficits. Motor grossly within normal limits. Five out of 5 muscle strength in the arms and legs. Normal speech. PSYCHIATRIC: Appropriate mood and affect; insight and judgment normal. Results - Labs CBC & Chem 7: 03/13/18 04:39 03/15/18 05:37 Laboratory Results - last 24 hr 03/15/18 05:37 Sodium 140 Potassium 4.2 Chloride 102 Carbon Dioxide 26.9 Anion Gap 11 BUN 10 Creatinine 0.61 Estimated GFR Greater than 89 Random Glucose 131 H Calcium 9.0 Total Bilirubin 0.8 AST 18 ALT 40 Alkaline Phosphatase 142 H Total Protein 7.4 Albumin 2.7 L - Procedures ERCP [facility] Assessment and Plan - Assessment (1) Acute pancreatitis Code(s): K85.90 - Acute pancreatitis without necrosis or infection, unspecified Status: Acute (2) Non-ST elevation SD (NSTEMI) Code(s): I21.4 - Non-ST elevation (NSTEMI) myocardial infarction Status: Acute (3) Lactic acidosis Code(s): E87.2 - Acidosis Status: Acute (4) Hypertension Code(s): I10 - Essential (primary) hypertension Status: Chronic (5) Obstruction of gallbladder Code(s): K82.0 - Obstruction of gallbladder Status: Acute (6) Acute kidney insufficiency Code(s): N28.9 - Disorder of kidney and ureter, unspecified Status: Acute - Plan 1. Acute pancreatitis -secondary to gallstone, post ERCP 03/05 GI still following recommends CT abdomen 3-4 weeks post discharge,HIDA scan 2. Possible cholangitis -no evidence found on ERCP 3. Severe sepsis -resolved 4. Lactic acidosis -resolved 5. Non-STEMI followed by cardiology. s/p Nuclear stress text with finding of Slight to moderate ischemia anteroseptal wall on 03/07. 2D echo with EF 75%. s/p left heart catheterization March 12, 2018 showing moderate CAD of the LAD Currently on ASA EC 6. BRIA -creatinine normalized 7. Hypertension On Lopressor, Norvasc increased to 10 mg daily significant improvement of BP 8. GI prophylaxis with pantoprazole 9. DVT prophylaxis with SCDs and Lovenox (4) Hypertension Qualifiers: Hypertension type: essential hypertension Qualified Code(s): I10 - Essential (primary) hypertension
--- NOTE | 2018-03-15 12:43 | P.PNCA ---
Subjective Interval history: No events overnight Blood pressure much better since yesterday Physical Exam Vital signs: Vital Signs 03/14/18 13:00 03/14/18 14:00 03/14/18 15:00 Temperature 98.7 F Pulse Rate 74 68 57 L Respiratory Rate 18 Blood Pressure 159/72 H Pulse Oximetry 96 03/14/18 16:00 03/14/18 17:00 03/14/18 18:00 Temperature Pulse Rate 64 58 L 72 Respiratory Rate Blood Pressure Pulse Oximetry 03/14/18 19:00 03/14/18 20:00 03/14/18 21:00 Temperature 97.6 F Pulse Rate 66 62 56 L Respiratory Rate 18 Blood Pressure 168/84 H Pulse Oximetry 95 03/14/18 22:00 03/14/18 23:00 03/15/18 00:00 Temperature Pulse Rate 74 67 70 Respiratory Rate 18 Blood Pressure 180/83 H Pulse Oximetry 96 03/15/18 01:00 03/15/18 02:00 03/15/18 02:03 Temperature Pulse Rate 62 60 60 Respiratory Rate 18 Blood Pressure 146/74 H Pulse Oximetry 03/15/18 03:00 03/15/18 03:57 03/15/18 04:00 Temperature Pulse Rate 51 L 53 L 62 Respiratory Rate 16 Blood Pressure 127/70 Pulse Oximetry 96 03/15/18 05:00 03/15/18 06:00 03/15/18 07:00 Temperature Pulse Rate 50 L 52 L 77 Respiratory Rate Blood Pressure Pulse Oximetry 03/15/18 08:00 03/15/18 09:00 03/15/18 10:00 Temperature 98.3 F Pulse Rate 60 62 67 Respiratory Rate 18 Blood Pressure 122/71 Pulse Oximetry 95 03/15/18 11:00 03/15/18 12:00 Temperature 98.7 F Pulse Rate 59 L 65 Respiratory Rate 18 Blood Pressure 117/78 Pulse Oximetry 96 Intake & Output 03/14/18 03/15/18 03/15/18 18:59 06:59 18:59 Intake Total 720 / 720 480 / 480 Output Total 800 / 800 1200 / 1200 Balance -80 / -80 -720 / -720 Weight 94.8 kg Intake: IV 0 / 0 D5W/LR Inj 1,000 ML @ 100 mls/ 0 / 0 hr IV.CONT .Q10H [facility] Rx#: [id number] Oral 720 / 720 480 / 480 Output: Urine 800 / 800 1200 / 1200 Other: Date of Last Bowel Movement 03/13/18 03/13/18 03/13/18 # Bowel Movements 0 Narrative: GENERAL: NAD SKIN: Warm and dry. HEAD: Atraumatic. Normocephalic. EYES: Pupils equal and round. No scleral icterus. No injection or drainage. ENT: No nasal bleeding or discharge. Mucous membranes pink and moist. NECK: Trachea midline. No JVD. CARDIOVASCULAR: Regular rate and rhythm. RESPIRATORY: Essentially clear, slightly diminished at bases. No wheezing noted. GASTROINTESTINAL: Abdomen soft, no tenderness, nondistended. Hepatic and splenic margins not palpable. MUSCULOSKELETAL: Extremities without clubbing, cyanosis, or edema. No obvious deformities. Right radial pulses intact, neurovascularly stable distally. Right femoral no hematoma, distal pulses intact. NEUROLOGICAL: Awake and alert. No obvious cranial nerve deficits. Motor grossly within normal limits. Five out of 5 muscle strength in the arms and legs. Normal speech. PSYCHIATRIC: Appropriate mood and affect; insight and judgment normal. Assessment and Plan - Assessment (1) Elevated troponin I level Code(s): R74.8 - Abnormal levels of other serum enzymes Status: Acute (2) Pancreatitis Code(s): K85.90 - Acute pancreatitis without necrosis or infection, unspecified Status: Acute (3) Obstruction of gallbladder Code(s): K82.0 - Obstruction of gallbladder Status: Acute (4) Non-ST elevation AL (NSTEMI) Code(s): I21.4 - Non-ST elevation (NSTEMI) myocardial infarction Status: Acute (5) Acute pancreatitis Code(s): K85.90 - Acute pancreatitis without necrosis or infection, unspecified Status: Acute (6) Severe sepsis Code(s): A41.9 - Sepsis, unspecified organism; R65.20 - Severe sepsis without septic shock Status: Acute (7) Acute kidney insufficiency Code(s): N28.9 - Disorder of kidney and ureter, unspecified Status: Acute (8) Lactic acidosis Code(s): E87.2 - Acidosis Status: Acute (9) Common bile duct dilatation Code(s): K83.8 - Other specified diseases of biliary tract Status: Acute (10) Jaundice Code(s): R17 - Unspecified jaundice Status: Acute - Plan 1) Acute gallstone pancreatitis ERCP, most likely passed the stone Lipase still elevated Evaluated by GI 2) Elevated trop Most likely Type 2 due to overall illness Nuclear stress test showing possible ischemia of the anteroseptal wall Cath showing moderate CAD of the LAD Con't medical management ASA 81mg daily Not an allergy, told not to take before due to GI ulcer Will plan on ASA EC and take with food 3) EF 70%, moderate MR/AR 4) BB held for bradycardia 5) HTN Norvasc increased to 10mg daily 6) Cardiovascularly stable for discharge (2) Pancreatitis Qualifiers: Chronicity: acute Pancreatitis type: biliary Acute pancreatitis complication : unspecified Qualified Code(s): K85.10 - Biliary acute pancreatitis without necrosis or infection
== END 2018-03-15 13:10 | disposition home health service (06) ==
LOC: PHED 14:21 → PHEDA 21:44 → HIMC 03-04 03:15 → N04 03-08 19:03 → HCIS 03-12 16:50
PROVIDERS: ADMIT Hospitalist; ATTEND Hospitalist